=== PATIENT | male | born 1965 | race Caucasian/White ===

== ENCOUNTER 2023-09-07 14:58 | Inpatient (IN) | payer OTHER ==
--- NOTE | 2023-09-07 15:51 | ED ---
General Adult HPI - General Source: patient, RN notes reviewed Mode of arrival: ambulatory Limitations: no limitations <Hever Paulino - Last Filed: 09/07/23 15:50> - General Source: patient, family, RN notes reviewed Mode of arrival: ambulatory Limitations: no limitations <Jaquelin Ceballos - Last Filed: 09/08/23 17:42> - General Stated complaint: Abd pain,bilateral leg pain Time Seen by Provider: 09/07/23 15:50 - History of Present Illness Initial comments: 57-year-old male presents emergency Department with multiple complaints. Patient states that he is weak, has leg pain, leg numbness, abdominal pain, weight loss. Patient was seen activity first and was advised to hospital for further evaluation. (Hever Paulino) Patient is a 57-year-old male presented ER with chief complaint of fatigue. Rafi barber states for the past month he has been extremely fatigued with little appetite. Patient also reports a 30 pound weight loss in the past month. Patient states he was recently admitted for sepsis. Patient states he underwent a spinal tap and received IV antibiotics for the sepsis. Patient was discharged and has been following up with his primary care physician. He saw his PCP today and due to his numerous complaints they sent him to the ER for evaluation. Patient states since the spinal tap she's been having headaches. Patient also describes shortness of breath with exertion. Patient describes an achy sensation in his chest and limbs. Patient also describes generalized abdominal pain. Describes his bowel movements as with bloody and yellow. Patient reports he has had very little appetite. Denies any urinary symptoms. Denies any peripheral edema. Denies any fevers but does endorse recent chills. Patient denies any drug or alcohol use in the past month. Patient isn't every day smoker since he was a teenager. (Jaquelin Ceballos) - Related Data Home Medications Medication Instructions Recorded Confirmed Atorvastatin [Lipitor] 40 mg PO HS 09/07/23 09/07/23 Omeprazole 20 mg PO DAILY 09/07/23 09/07/23 allopurinoL [Zyloprim] 100 mg PO DAILY 09/07/23 09/07/23 amLODIPine [Norvasc] 10 mg PO DAILY 09/07/23 09/07/23 carvediloL [Coreg] 12.5 mg PO BID 09/07/23 09/07/23 lisinopriL [Zestril] 20 mg PO DAILY 09/07/23 09/07/23 Allergies Allergy/AdvReac Type Severity Reaction Status Date / Time No Known Allergies Allergy Verified 09/07/23 21:43 Review of Systems ROS Other: All systems not noted in ROS Statement are negative. <Hever Paulino - Last Filed: 09/07/23 15:50> ROS Other: All systems not noted in ROS Statement are negative. <Jaquelin Ceballos - Last Filed: 09/08/23 17:42> ROS Statement: Those systems with pertinent positive or pertinent negative responses have been documented in the HPI. General Exam <Hever Paulino - Last Filed: 09/07/23 15:50> General appearance: alert, in no apparent distress Head exam: Present: atraumatic, normocephalic, normal inspection ENT exam: Present: normal exam, normal oropharynx, mucous membranes moist, TM's normal bilaterally Neck exam: Present: normal inspection. Absent: tenderness, meningismus, lymphadenopathy Respiratory exam: Present: normal lung sounds bilaterally, rhonchi (Right lung). Absent: respiratory distress, wheezes, rales, stridor Cardiovascular Exam: Present: regular rate, normal rhythm, normal heart sounds. Absent: systolic murmur, diastolic murmur, rubs, gallop, clicks GI/Abdominal exam: Present: soft, tenderness (Generalized), guarding, normal bowel sounds. Absent: distended, rebound, rigid Neurological exam: Present: alert, oriented X3, CN II-XII intact Psychiatric exam: Present: normal affect, normal mood Skin exam: Present: warm, dry, intact, normal color. Absent: rash <Jaquelin Ceballos - Last Filed: 09/08/23 17:42> - General Exam Comments Initial Comments: Visual Physical Exam Vital signs reviewed General: Well-appearing, nontoxic, no acute distress. Head: Normocephalic, atraumatic Eyes: PERRLA, EOMI ENT: Airway patent Chest: Nonlabored breathing Skin: No visual rash, normal skin tone Neuro: Alert and oriented 3 Musculoskeletal: No gross abnormalities (Hever Paulino) Course Vital Signs 09/07/23 09/07/23 15:50 21:49 Temperature 98 F Pulse Rate 89 86 Respiratory 18 18 Rate Blood Pressure 117/69 145/83 O2 Sat by Pulse 100 100 Oximetry Medical Decision Making <Hever Paulino - Last Filed: 09/07/23 15:50> - Lab Data Result diagrams: 09/07/23 15:54 09/08/23 10:19 - EKG Data -: EKG Interpreted by Me - Radiology Data Radiology results: pending, image reviewed <Jaquelin Ceballos - Last Filed: 09/08/23 17:42> - Medical Decision Making I completed the quick note portion of this chart signed Hever Paulino PA-C (Hever Paulino) Was pt. sent in by a medical professional or institution (, PA, GARBAGE TRUCK DRIVER, urgent care, hospital, or intermediate...) When possible be specific @ -No Did you speak to anyone other than the patient for history (EMS, parent, family, police, friend...)? What history was obtained from this source @ -Sister for HPI Did you review nursing and triage notes (agree or disagree)? Why? @ -I reviewed and agree with nursing and triage notes Were old charts reviewed (outside hosp., previous admission, EMS record, old EKG, old radiological studies, urgent care reports/EKG's, intermediate records)? Report findings @ -No old charts were reviewed Differential Diagnosis (chest pain, altered mental status, abdominal pain women, abdominal pain men, vaginal bleeding, weakness, fever, dyspnea, syncope, headache, dizziness, GI bleed, back pain, seizure, CVA, palpatations, mental health, musculoskeletal)? @ -[Differential Weakness:Hypoglycemia, shock, sepsis, hyponatremia, anemia, infection, NH, ETOH, adverse medicine reaction, overdose, stroke, this is not meant to be an all-inclusive list. EKG interpreted by me (3pts min.). @ -As above X-rays interpreted by me (1pt min.). @ -Chest x-ray is negative for acute cardiopulmonary process. CT interpreted by me (1pt min.). @ -CT chest abdomen pelvis was taken official radiology report is pending. U/S interpreted by me (1pt. min.). @ -None done What testing was considered but not performed or refused? (CT, X-rays, U/S, labs)? Why? @ -None What meds were considered but not given or refused? Why? @ -None Did you discuss the management of the patient with other professionals (professionals i.e. DrStuart, PA, GARBAGE TRUCK DRIVER, lab, RT, psych nurse, criminal justice social worker, box blank machine operator, teacher, commanding officer traffic division, rn case mgr)? Give summary @ -Yes, I discussed this case with Dr. Schuster who accepted admission. He also advised to start sodium bicarb. Was smoking cessation discussed for >3mins.? @ -No Was critical care preformed (if so, how long)? @ -No Were there social determinants of health that impacted care today? How? (Homelessness, low income, unemployed, alcoholism, drug addiction, transportation, low edu. Level, literacy, decrease access to med. care, [facility], rehab)? @ -No Was there de-escalation of care discussed even if they declined (Discuss DNR or withdrawal of care, Hospice)? DNR status @ -No What co-morbidities impacted this encounter? (DM, HTN, Smoking, COPD, CAD, Cancer, CVA, ARF, Chemo, Hep., AIDS, mental health diagnosis, sleep apnea, morbid obesity)? @ -HTN and GERD Was patient admitted / discharged? Hospital course, mention meds given and r oute, prescriptions, significant lab abnormalities, going to OR and other pertinent info. @ -Admitted. Patient is a 57-year-old male presented ER with chief complaint of abdominal pain. Upon examination, patient's vital signs are stable. Physical exam was significant for generalized abdominal pain. Patient appeared unwell but was in no acute distress. Labs obtained in the ER were significant for a BUN of 90, creatinine 4.88, magnesium 1.2, carbon dioxide 7, AST 69, ALT 56, ALk phos 136. UA significant for moderate blood. Chest x-ray was negative for acute cardiopulmonary process. CT chest/abdomen/pelvis was taken official radiology read is pending. Patient did receive 1 L of fluids and was started on a bicarbonate drip. Patient did receive 1 mg of IV Dilaudid and 4 mg of Zofran for pain control. I discussed lab and imaging findings with the patient and sister, at bedside. I spoke with Dr. Schuster who accepted admission. Patient will be admitted for further care. Nephrology will be on consult. Patient expressed understanding and agreement with care plan. Undiagnosed new problem with uncertain prognosis? @ -Yes Drug Therapy requiring intensive monitoring for toxicity (Heparin, Nitro, Insulin, Cardizem)? @ -No Were any procedures done? @ -No Diagnosis/symptom? @ -Acute renal failure/hypomagnesemia/transaminitis Acute, or Chronic, or Acute on Chronic? @ -Acute Uncomplicated (without systemic symptoms) or Complicated (systemic symptoms)? @ -Complicated Side effects of treatment? @ -No Exacerbation, Progression, or Severe Exacerbation? @ -No Poses a threat to life or bodily function? How? (Chest pain, USA, NH, pneumonia, PE, COPD, DKA, ARF, appy, cholecystitis, CVA, Diverticulitis, Homicidal, Suicidal, threat to staff... and all critical care pts) @ -Yes, acute renal failure can be life threatening. (Jaquelin Ceballos) - Lab Data Lab Results 09/07/23 09/07/23 09/07/23 Range/Units 15:54 15:54 15:54 WBC 6.5 (3.8-10.6) k/uL RBC 3.83 L (4.30-5.90) m/uL Hgb 11.0 L (13.0-17.5) gm/dL Hct 34.7 L (39.0-53.0) % MCV 90.7 (80.0-100.0) fL MCH 28.7 (25.0-35.0) pg MCHC 31.7 (31.0-37.0) g/dL RDW 16.0 H (11.5-15.5) % Plt Count 197 (150-450) k/uL MPV 10.3 Neutrophils % 63 % Lymphocytes % 19 % Monocytes % 11 % Eosinophils % 2 % Basophils % 1 % Neutrophils # 4.1 (1.3-7.7) k/uL Lymphocytes # 1.2 (1.0-4.8) k/uL Monocytes # 0.7 (0-1.0) k/uL Eosinophils # 0.1 (0-0.7) k/uL Basophils # 0.1 (0-0.2) k/uL Hypochromasia Marked Sodium 142 (137-145) mmol/L Potassium 5.5 H (3.5-5.1) mmol/L Chloride 118 H (98-107) mmol/L Carbon Dioxide 7 L* (22-30) mmol/L Anion Gap 17 mmol/L BUN 90 H (9-20) mg/dL Creatinine 4.88 H (0.66-1.25) mg/dL Est GFR (CKD-EPI)AfAm 14 (>60 ml/min/1.73 sqM) Est GFR (CKD-EPI)NonAf 12 (>60 ml/min/1.73 sqM) Glucose 86 (74-99) mg/dL Plasma Lactic Acid Hernandez (0.7-2.0) mmol/L Calcium 10.2 (8.4-10.2) mg/dL Magnesium 1.2 L (1.6-2.3) mg/dL Total Bilirubin 0.4 (0.2-1.3) mg/dL AST 69 H (17-59) U/L ALT 56 H (4-49) U/L Alkaline Phosphatase 136 H (38-126) U/L Troponin I (0.000-0.034) ng/mL Total Protein 7.2 (6.3-8.2) g/dL Albumin 3.9 (3.5-5.0) g/dL Amylase 98 (30-110) U/L Lipase 344 H (23-300) U/L Urine Color Light Yellow Urine Appearance Clear (Clear) Urine pH 5.5 (5.0-8.0) Ur Specific [place] 1.015 (1.001-1.035) Urine Protein 2+ H (Negative) Urine Glucose (UA) Negative (Negative) Urine Ketones Negative (Negative) Urine Blood Moderate H (Negative) Urine Nitrite Negative (Negative) Urine Bilirubin Negative (Negative) Urine Urobilinogen <2.0 (<2.0) mg/dL Ur Leukocyte Esterase Negative (Negative) Urine RBC 1 (0-5) /hpf Urine WBC 1 (0-5) /hpf Hyaline Casts 1 (0-2) /lpf Urine Mucus Rare H (None) /hpf 09/07/23 09/07/23 Range/Units 15:54 15:54 WBC (3.8-10.6) k/uL RBC (4.30-5.90) m/uL Hgb (13.0-17.5) gm/dL Hct (39.0-53.0) % MCV (80.0-100.0) fL MCH (25.0-35.0) pg MCHC (31.0-37.0) g/dL RDW (11.5-15.5) % Plt Count (150-450) k/uL MPV Neutrophils % % Lymphocytes % % Monocytes % % Eosinophils % % Basophils % % Neutrophils # (1.3-7.7) k/uL Lymphocytes # (1.0-4.8) k/uL Monocytes # (0-1.0) k/uL Eosinophils # (0-0.7) k/uL Basophils # (0-0.2) k/uL Hypochromasia Sodium (137-145) mmol/L Potassium (3.5-5.1) mmol/L Chloride (98-107) mmol/L Carbon Dioxide (22-30) mmol/L Anion Gap mmol/L BUN (9-20) mg/dL Creatinine (0.66-1.25) mg/dL Est GFR (CKD-EPI)AfAm (>60 ml/min/1.73 sqM) Est GFR (CKD-EPI)NonAf (>60 ml/min/1.73 sqM) Glucose (74-99) mg/dL Plasma Lactic Acid Hernandez 0.6 L (0.7-2.0) mmol/L Calcium (8.4-10.2) mg/dL Magnesium (1.6-2.3) mg/dL Total Bilirubin (0.2-1.3) mg/dL AST (17-59) U/L ALT (4-49) U/L Alkaline Phosphatase (38-126) U/L Troponin I 0.029 (0.000-0.034) ng/mL Total Protein (6.3-8.2) g/dL Albumin (3.5-5.0) g/dL Amylase (30-110) U/L Lipase (23-300) U/L Urine Color Urine Appearance (Clear) Urine pH (5.0-8.0) Ur Specific [place] (1.001-1.035) Urine Protein (Negative) Urine Glucose (UA) (Negative) Urine Ketones (Negative) Urine Blood (Negative) Urine Nitrite (Negative) Urine Bilirubin (Negative) Urine Urobilinogen (<2.0) mg/dL Ur Leukocyte Esterase (Negative) Urine RBC (0-5) /hpf Urine WBC (0-5) /hpf Hyaline Casts (0-2) /lpf Urine Mucus (None) /hpf - EKG Data EKG Comments: EKG taken at 21:15 shows normal sinus rhythm with left ventricular hypertrophy. No acute ST segment or T-wave abnormalities. Ventricular rate 76, TX interval 159, QRS duration 113, QT/QTC 361/392. (Jaquelin Ceballos) Disposition <Hever Paulino - Last Filed: 09/07/23 15:50> Time of Disposition: 22:14 <Jaquelin Ceballos - Last Filed: 09/08/23 17:42> Clinical Impression: Acute renal failure, Hypomagnesemia, Transaminitis Disposition: ADMITTED IP TO THIS HOSP Condition: Serious
[2023-09-07 16:56] LABS: Basophils # (A) 0.1 k/uL (0-0.2); Basophils % (A) 1 %; Eosinophils # (A) 0.1 k/uL (0-0.7); Eosinophils % (A) 2 %; HCT 34.7 % (39.0-53.0); Hypochromasia Marked; Lymphocytes # (A) 1.2 k/uL (1.0-4.8); Lymphocytes % (A) 19 %; MCH 28.7 pg (25.0-35.0); MCHC 31.7 g/dL (31.0-37.0); MCV 90.7 fL (80.0-100.0); Mean Platelet Volume 10.3; Monocytes # (A) 0.7 k/uL (0-1.0); Monocytes % (A) 11 %; Neutrophils # (A) 4.1 k/uL (1.3-7.7); Neutrophils % (A) 63 %; Platelet Count 197 k/uL (150-450); RBC 3.83 m/uL (4.30-5.90); WBC 6.5 k/uL (3.8-10.6)
[2023-09-07 17:06] LABS: ALT 56 U/L (4-49); AST 69 U/L (17-59); African American GFR (CKD) 14 (>60 ml/min/1.73 sqM); Albumin 3.9 g/dL (3.5-5.0); Alkaline Phosphatase 136 U/L (38-126); Amylase 98 U/L (30-110); Anion Gap 17 mmol/L; Blood Urea Nitrogen 90 mg/dL (9-20); Calcium 10.2 mg/dL (8.4-10.2); Chloride 118 mmol/L (98-107); Glucose 86 mg/dL (74-99); Lipase 344 U/L (23-300); Magnesium 1.2 mg/dL (1.6-2.3); Non-African American GFR(CKD) 12 (>60 ml/min/1.73 sqM); Potassium 5.5 mmol/L (3.5-5.1); Sodium 142 mmol/L (137-145); Total Bilirubin 0.4 mg/dL (0.2-1.3); Total Protein 7.2 g/dL (6.3-8.2)
[2023-09-07 17:07] LABS: Appearance,Urine Clear (Clear); Bilirubin,Urine Negative (Negative); Blood,Urine Moderate (Negative); Color,Urine Light Yellow; Glucose,Urine (UA) Negative (Negative); Hyaline Casts,Urine 1 /lpf (0-2); Ketones,Urine Negative (Negative); Leukocyte Esterase,Urine Negative (Negative); Mucus,Urine Rare /hpf; Nitrite,Urine Negative (Negative); PH, Urine 5.5 (5.0-8.0); Protein,Urine 2+ (Negative); RBC,Urine 1 /hpf (0-5); Specific Gravity,Urine 1.015 (1.001-1.035); Urobilinogen,Urine <2.0 mg/dL (<2.0); WBC,Urine 1 /hpf (0-5)
--- NOTE | 2023-09-07 17:14 | XR ---
EXAMINATION TYPE: XR chest 2V DATE OF EXAM: 09/07/2023 4:44 PM CLINICAL INDICATION:Male, 57 years old with history of weakness; PHH COMPARISON: None TECHNIQUE: XR chest 2V. Frontal PA and lateral views of the chest. FINDINGS: Lines/Tubes: None. Heart/mediastinum: Cardiomediastinal silhouette is well defined. Heart size is normal. Mediastinum appears normal. No evidence of hilar enlargement. Pulmonary vascularity: Not increased, Lungs/Pleura: There is no evidence of pleural effusion, focal consolidation, or pneumothorax. Vague increased density over the lower lungs bilaterally on the frontal view is not reproduced on lat eral, judged likely due to soft tissue overlap. Musculoskeletal: No acute osseous abnormality demonstrated in the limits of the exam. Mild degenerat shirin changes of the spine and shoulders with possible DISH of the spine. Other findings: None. IMPRESSION: No acute cardiopulmonary abnormality.
[2023-09-07 17:18] LABS: Carbon Dioxide 7 mmol/L (22-30)
[2023-09-07] MEDS ORDERED: SODIUM CHLORIDE 0.9% 1,000 ML IV STA (21:06)
[2023-09-07] MEDS ORDERED: NALOXONE 0.4 MG/ML 1 ML VIAL IV PRN (21:29)
[2023-09-07] MEDS: SODIUM CHLORIDE 0.9% 1,000 ML IV SCH (21:50)
[2023-09-07] MEDS ORDERED: ONDANSETRON 4 MG/2 ML VIAL IVP STA (21:58)
[2023-09-07] MEDS ORDERED: HYDROmorphone 1 MG/ML 1 ML SYRINGE IVP STA (21:58)
[2023-09-07] MEDS ORDERED: DEXTROSE 5% IN WATER 1,000 ML with SODIUM BICARB (1 MEQ/ML) 150 ML IV SCH (22:30)
[2023-09-08] MEDS: MAGNESIUM SULFATE-D5W PMX 1 GM in DEXTROSE/WATER 1 100ML.BAG IVPB SCH ×2 (00:13→01:22)
--- NOTE | 2023-09-08 00:15 | CT ---
EXAMINATION TYPE: CT ChestAbdPelvis wo con CT DLP: 491.5 mGycm, Automated exposure control for dose reduction was used. DATE OF EXAM: 09/07/2023 8:36 PM COMPARISON: Same day chest x-ray CLINICAL INDICATION:Male, 57 years old with history of fatigue; PHH, lower abdominal pain- poor lab v john (believed to be in sepsis) -- GFR 12 TECHNIQUE: Multiple axial images of the chest, abdomen, and pelvis were obtained. Two-dimensional cor onal and sagittal reconstructions were obtained. Contrast used: mL of , Oral contrast used: without Oral Contrast FINDINGS: Exam limited without IV contrast. CHEST: LUNGS/ PLEURA: Mild upper lobe emphysematous changes with mild biapical reticular scarring. No consol idation, mass, pleural effusion, pneumothorax. AIRWAY: Patent and unremarkable. HEART: Size within normal limits. Mild/moderate coronary arterial calcifications. Trace pericardial f luid. MEDIASTINUM: No gross evidence of adenopathy. VASCULATURE: Moderate aortic atherosclerotic calcification and ectasia of the ascending aorta up to 3.8 cm. Partially calcified aortic valve. Calcifications along the aortic arch without significant st enosis of the branch vessels. The descending thoracic aorta is 2.7 cm. MUSCULOSKELETAL: Mild to moderate diffuse degenerative changes. Degenerative change of the SI joints with partial osseous bridging. No acute bony abnormality or lytic/blastic lesion. 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 SOFT TISSUES/LYMPH NODES: Unremarkable. LOWER NECK: No significant findings. ABDOMEN: ABDOMEN LIVER: There is circumscribed 10.5 mm hypodense lesion in the right lobe towards the dome. Otherwise unremarkable. GALLBLADDER AND BILE DUCTS: Slightly hyperdense gallbladder contents could be due to sludge or gretchen ous excretion. No focal calcified gallstones are seen. No inflammatory changes or biliary ductal dila tation. PANCREAS: Unremarkable. SPLEEN: Low-attenuation round 2.7 cm lesion in the posterior spleen with some peripheral calcificatio ns, possibly cyst or hemangioma. ADRENAL GLANDS: Unremarkable. KIDNEYS AND URETERS: There are severe vascular calcifications in the renal leopoldo. Punctate calculus is seen in the upper pole of the left kidney. There are several small round at least partially exophyti c nodular densities from the right kidney of increased and decreased attenuation. Left kidney shows s everal relatively hypodense and primarily exophytic lesions as well, largest 4 cm emanating from the lower pole. No evidence of ureteral calculi or hydronephrosis. PELVIS BLADDER: Unremarkable REPRODUCTIVE: Mildly enlarged prostate measures 4.3 cm transverse. ABDOMEN & PELVIS STOMACH AND BOWEL: Stomach and small bowel do not appear distended, there is no evidence of obstructi on. Appendix appears within normal limits. Mild/moderate stool throughout the colon with a few scatte red diverticula, no definite focal inflammation to suggest diverticulitis. Many segments of colon are nondistended and not well evaluated. There is a thickened appearance of the colonic wall suggested e specially from the distal descending through the sigmoid colon, with some apparent luminal narrowing, of uncertain etiology. Rectal wall thickening may also be present. PERITONEUM: No evidence of pneumoperitoneum or free fluid. Mild generalized stranding of the mesenteric fat. No focal fluid collection to suggest abscess. VASCULATURE: Moderate atherosclerotic calcifications are present throughout the abdominal aorta and i ts branches. Bilobed ectasia of the infrarenal aorta measuring 2.5 and 2.6 cm. Beyond the bifurcation there is moderate diffuse calcification of the iliac arterial trees with multifocal areas of stenosi s which appear under 50%. MUSCULOSKELETAL: Mild to moderate diffuse degenerative changes. Degenerative change of the SI joints with partial osseous bridging. No acute bony abnormality or lytic/blastic lesion. 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 LYMPH NODES: No gross evidence for lymphadenopathy. SOFT TISSUE/ABDOMINAL WALL: Mild broad-based laxity at the ventral abdominal wall at the midline with superimposed tiny fat-containing umbilical hernia. IMPRESSION: 1. No clearly acute abnormality in the chest abdomen or pelvis, in the limitations of unenhanced exa m. 2. Abnormal appearance of the colon, with wall thickening most prominent in the sigmoid region. This could reflect chronic changes such as related to the diverticular disease, however infectious or inf lammatory cause or neoplasm are also considered. Colonoscopy V may be of benefit if clinically warran aayush. 3. Moderate aortic atherosclerotic calcification and ectasia of the ascending aorta up to 3.8 cm. Mi ld bilobed ectasia of the infrarenal abdominal aorta. 4. Bilateral renal lesions are not fully characterized but the appearance is most suggestive of simp le and hyperdense/hemorrhagic cysts. Further characterization could begin with renal ultrasound as wa rranted. 5. Small hepatic hypodensity, not fully characterized but in the absence of a cancer history is stat istically likely benign. 6. Other chronic and likely incidental findings, as above.
[2023-09-08] MEDS ORDERED: allopurinoL 100 MG TAB PO SCH (10:15)
[2023-09-08] MEDS: PANTOPRAZOLE 40 MG TABLET PO SCH (10:35)
[2023-09-08 10:53] LABS: African American GFR (CKD) 19 (>60 ml/min/1.73 sqM); Anion Gap 16 mmol/L; Blood Urea Nitrogen 81 mg/dL (9-20); Calcium 9.7 mg/dL (8.4-10.2); Carbon Dioxide 10 mmol/L (22-30); Chloride 117 mmol/L (98-107); Glucose 169 mg/dL (74-99); Non-African American GFR(CKD) 16 (>60 ml/min/1.73 sqM); Potassium 4.3 mmol/L (3.5-5.1); Sodium 143 mmol/L (137-145)
[2023-09-08] MEDS ORDERED: LACTULOSE 20 GM/30 ML CUP PO PRN (11:50)
[2023-09-08] MEDS ORDERED: ALPRAZolam 0.25 MG TAB PO PRN (11:50)
[2023-09-08] MEDS ORDERED: CALCIUM CARBONATE 500 MG CHEWABLE PO PRN (11:50)
[2023-09-08] MEDS ORDERED: TEMAZEPAM 15 MG CAP PO PRN (11:50)
[2023-09-08] MEDS: BUDESONIDE 1 MG/2 ML NEBU INHALATION SCH ×2 (12:09→18:41)
[2023-09-08] MEDS: IPRATROPIUM-ALBUTEROL 3 ML NEB INHALATION SCH ×2 (12:16→18:41)
[2023-09-08] MEDS ORDERED: ENOXAPARIN 40 MG/0.4 ML SYRINGE SQ SCH (12:30)
[2023-09-08] MEDS: SODIUM CHLORIDE 0.9% 1,000 ML IV SCH (13:40)
[2023-09-08] MEDS: NICOTINE 21MG/24HR PATCH TRANSDERM SCH (13:40)
--- NOTE | 2023-09-08 13:43 | P.NPCON ---
History of Present Illness - Reason for Consult acute renal failure - History of Present Illness Patient is a 57-year-old male who is admitted to the hospital with complaints of increased weakness and fatigue. He states he has not been able to eat much for about 2 weeks. Patient also is complaining of diarrhea which has been going on for about 2-1/2-3 weeks now. Patient admitted to increased weight loss. No previous history of kidney diseases. Serum creatinine was 4.8 on admission and decreased to 3.8 now. No previous labs available for comparison. Blood pressure has been on the lower side. Maintained on MARSHAL inhibitor as prior to admission. CO2 was 7 and improved to 10 this morning. Review of Systems As per HPI. Past Medical History Additional Past Medical History / Comment(s): Gout, History of Any Multi-Drug Resistant Organisms: None Reported Past Surgical History: No Surgical Hx Reported Past Anesthesia/Blood Transfusion Reactions: No Reported Reaction Past Psychological History: No Psychological Hx Reported Smoking Status: Current every day smoker Past Alcohol Use History: Abuse, Daily Past Drug Use History: Marijuana Medications and Allergies Home Medications Medication Instructions Recorded Confirmed Type Atorvastatin [Lipitor] 40 mg PO HS 09/07/23 09/07/23 History Omeprazole 20 mg PO DAILY 09/07/23 09/07/23 History allopurinoL [Zyloprim] 100 mg PO DAILY 09/07/23 09/07/23 History amLODIPine [Norvasc] 10 mg PO DAILY 09/07/23 09/07/23 History carvediloL [Coreg] 12.5 mg PO BID 09/07/23 09/07/23 History lisinopriL [Zestril] 20 mg PO DAILY 09/07/23 09/07/23 History Allergies Allergy/AdvReac Type Severity Reaction Status Date / Time No Known Allergies Allergy Verified 09/07/23 21:43 Physical Exam Vitals: Vital Signs Temp Pulse Pulse Resp BP BP Pulse Ox 09/08/23 07:38 97.7 F 94 19 116/79 98 09/08/23 00:39 98.4 F 92 17 111/67 100 09/07/23 21:49 86 18 145/83 100 09/07/23 15:50 98 F 89 18 117/69 100 Intake and Output 09/07/23 09/08/23 09/08/23 22:59 06:59 14:59 Intake Total 1000 Balance 1000 Intake: IV 1000 Invasive Line 1 1000 Other: Voiding Method Toilet # Voids 1 Weight 64.41 kg 64.41 kg Patient is awake, comfortable, no acute distress Examination of the heart S1 and S2 Examination of the lungs bilateral breath sounds are heard Abdomen is soft nontender Examination of lower extremity shows no edema [employer] exam grossly intact Results - Lab Results Most recent lab results Calcium 9.7 mg/dL (8.4-10.2) 09/08/23 10:19 Magnesium 1.2 mg/dL (1.6-2.3) L 09/07/23 15:54 09/07/23 15:54 09/08/23 10:19 Assessment and Plan Assessment: 1. Acute kidney injury, ATN currently nonoliguric and improving with IV hydration. UA shows 2+ protein and moderate blood. 2. Severe metabolic acidosis, anion gap associated with acute kidney injury as well as diarrhea 3. Hyperkalemia associated with acute kidney injury and metabolic acidosis. 4. Weight loss with CT findings suggesting changes in the colon, rule out underlying malignancy 5. History of hypertension with blood pressure currently on the lower side Plan: Add IV bicarb DC Coreg if blood pressure remains low Repeat labs in a.m. Continue to hold off on MARSHAL inhibitor's Avoid nephrotoxic agents Further GI workup as per primary service Thank you for the consultation. We will continue to follow the patient with you during his hospitalization.
[2023-09-08] MEDS: DEXTROSE 5% IN WATER 1,000 ML with SODIUM BICARB (1 MEQ/ML) 150 ML IV SCH (17:42)
[2023-09-08] MEDS: ACETAMINOPHEN TAB 325 MG TAB PO PRN (17:43)
[2023-09-08] MEDS: ATORVASTATIN 40 MG TAB PO SCH (19:57)
--- NOTE | 2023-09-08 21:26 | P.HPIM ---
History of Present Illness H&P Date: 09/08/23 Chief Complaint: Weak and tired This is a pleasant 57-year-old patient who follows with Dr. Uziel Caro. For about 3 months patient's progressively getting worse. Hold bodies and becoming stiff did get some antibiotic as an outpatient. Feels a little bit better. Went to see his family doctor who did his blood work and was sent to the hospital. In the last 4 weeks patient lost about 38 pounds. Denies any fever. For last 1 week patient also had diarrhea about 7-8 times in 24 hour period. The diarrhea is better in the hospital now. Has been losing weight. Poor appetite. Tired rundown. Patient been drinking about half a pint of alcohol. Was sometime. Patient is found in severe renal failure and admitted. Review of systems: GEN.: Poor appetite, weight loss, tired EYES: None HEENT: None NECK: None RESPIRATORY: None CARDIOVASCULAR: None GASTROINTESTINAL: Diarrhea was actually better GENITOURINARY: None MUSCULOSKELETAL: Generalized muscle weakness] LYMPHATICS: None HEMATOLOGICAL: None PSYCHIATRY: None NEUROLOGICAL: None Social history: Drinking half of pint of alcohol daily. This is his girlfriend Pastora. Smoked a pack and a half for about 40 years. Stopped 3-4 weeks ago. Used to do construction work Physical examination: VITAL SIGNS: 98, 89, 18, 117/69, 100% room air GENERAL: BMI 21.6, reclining but awake tired. EYES: Pupils equal. Conjunctiva normal. HEENT: External appearance of nose and ears normal, oral cavity grossly normal. NECK: JVD not raised; masses not palpable. HEART: First and second heart sounds are normal; no edema. LUNGS: Respiratory rate normal; clear to auscultation. ABDOMEN: Soft, nontender, liver spleen not palpable, no masses palpable. PSYCH: Alert and oriented x3; mood and affect normal. MUSCULOSKELETAL:No Clubbing/cyanosis;muscles-grossly intact It also some muscle mass NEUROLOGICAL: Cranial nerves grossly intact; no facial asymmetry, power and sensation grossly intact. LYMPHATICS: No lymph nodes palpable in the axilla and neck INVESTIGATIONS, reviewed in the clinical context: 09/08/2023: Potassium 4.3 bicarb 10 BUN 81 8 and 3.8 09/07/2023: White count 6.5 hemoglobin 11 platelets 197 potassium 5.5 bicarbonate 7 BUN 90 creatinine 4.88 EKG tracing personally reviewed by me-normal sinus rhythm. Some ST-T wave changes. Chest x-ray film personally reviewed by me-emphysema Computed tomography scan chest abdomen pelvis: Nonspecific findings. Assessment and plan: -Acute kidney injury likely combination of prerenal from decreased oral intake and ATN. Stop Zestril. And allopurinol. IV fluids -Severe metabolic acidosis due to severe renal failure IV bicarbonate drip -COPD in a current smoker DuoNeb -Chronic nicotine dependence, cigarette smoker Nicotine patch -GERD Protonix -Essential hypertension, currently blood pressure in the lower side. Stop amlodipine. Stop Zestril. Cutback Coreg to 3.125 mg twice a day. Care was discussed with the patient. Nephrology consulted. Patient will probably need a repeat computed tomography scan chest abdomen pelvis with cont rast and renal functions better. Past Medical History Additional Past Medical History / Comment(s): Gout, History of Any Multi-Drug Resistant Organisms: None Reported Past Surgical History: No Surgical Hx Reported Past Anesthesia/Blood Transfusion Reactions: No Reported Reaction Past Psychological History: No Psychological Hx Reported Smoking Status: Current every day smoker Past Alcohol Use History: Abuse, Daily Past Drug Use History: Marijuana Medications and Allergies Home Medications Medication Instructions Recorded Confirmed Type Atorvastatin [Lipitor] 40 mg PO HS 09/07/23 09/07/23 History Omeprazole 20 mg PO DAILY 09/07/23 09/07/23 History allopurinoL [Zyloprim] 100 mg PO DAILY 09/07/23 09/07/23 History amLODIPine [Norvasc] 10 mg PO DAILY 09/07/23 09/07/23 History carvediloL [Coreg] 12.5 mg PO BID 09/07/23 09/07/23 History lisinopriL [Zestril] 20 mg PO DAILY 09/07/23 09/07/23 History Allergies Allergy/AdvReac Type Severity Reaction Status Date / Time No Known Allergies Allergy Verified 09/07/23 21:43 Physical Exam Vitals: Vital Signs Temp Pulse Pulse Resp BP BP Pulse Ox 09/08/23 07:38 97.7 F 94 19 116/79 98 09/08/23 00:39 98.4 F 92 17 111/67 100 09/07/23 21:49 86 18 145/83 100 09/07/23 15:50 98 F 89 18 117/69 100 Intake and Output 09/07/23 09/08/23 09/08/23 22:59 06:59 14:59 Intake Total 1000 Balance 1000 Intake: IV 1000 Invasive Line 1 1000 Other: Voiding Method Toilet # Voids 1 Weight 64.41 kg 64.41 kg Results CBC & Chem 7: 09/07/23 15:54 09/08/23 10:19 Labs: Abnormal Lab Results - Last 24 Hours (Table) 09/07/23 09/07/23 09/07/23 Range/Units 15:54 15:54 15:54 RBC 3.83 L (4.30-5.90) m/uL Hgb 11.0 L (13.0-17.5) gm/dL Hct 34.7 L (39.0-53.0) % RDW 16.0 H (11.5-15.5) % Potassium 5.5 H (3.5-5.1) mmol/L Chloride 118 H (98-107) mmol/L Carbon Dioxide 7 L* (22-30) mmol/L BUN 90 H (9-20) mg/dL Creatinine 4.88 H (0.66-1.25) mg/dL Plasma Lactic Acid Hernandez (0.7-2.0) mmol/L Magnesium 1.2 L (1.6-2.3) mg/dL AST 69 H (17-59) U/L ALT 56 H (4-49) U/L Alkaline Phosphatase 136 H (38-126) U/L Lipase 344 H (23-300) U/L Urine Protein 2+ H (Negative) Urine Blood Moderate H (Negative) Urine Mucus Rare H (None) /hpf 09/07/23 Range/Units 15:54 RBC (4.30-5.90) m/uL Hgb (13.0-17.5) gm/dL Hct (39.0-53.0) % RDW (11.5-15.5) % Potassium (3.5-5.1) mmol/L Chloride (98-107) mmol/L Carbon Dioxide (22-30) mmol/L BUN (9-20) mg/dL Creatinine (0.66-1.25) mg/dL Plasma Lactic Acid Hernandez 0.6 L (0.7-2.0) mmol/L Magnesium (1.6-2.3) mg/dL AST (17-59) U/L ALT (4-49) U/L Alkaline Phosphatase (38-126) U/L Lipase (23-300) U/L Urine Protein (Negative) Urine Blood (Negative) Urine Mucus (None) /hpf
[2023-09-08] MEDS: Acetaminophen-Codeine 300-30mg TAB PO PRN (22:00)
[2023-09-09] MEDS: DEXTROSE 5% IN WATER 1,000 ML with SODIUM BICARB (1 MEQ/ML) 150 ML IV SCH ×3 (06:18→22:41)
[2023-09-09] MEDS: NICOTINE 21MG/24HR PATCH TRANSDERM SCH (08:12)
[2023-09-09] MEDS: ENOXAPARIN 30 MG/0.3 ML SYRINGE SQ SCH (08:12)
[2023-09-09] MEDS: PANTOPRAZOLE 40 MG TABLET PO SCH (08:12)
[2023-09-09] MEDS: Acetaminophen-Codeine 300-30mg TAB PO PRN ×2 (08:16→20:28)
[2023-09-09] MEDS: IPRATROPIUM-ALBUTEROL 3 ML NEB INHALATION SCH ×3 (09:34→21:20)
[2023-09-09] MEDS: BUDESONIDE 1 MG/2 ML NEBU INHALATION SCH ×2 (09:34→21:20)
[2023-09-09 13:15] LABS: African American GFR (CKD) 24 (>60 ml/min/1.73 sqM); Anion Gap 12 mmol/L; Blood Urea Nitrogen 70 mg/dL (9-20); Calcium 9.2 mg/dL (8.4-10.2); Carbon Dioxide 19 mmol/L (22-30); Chloride 112 mmol/L (98-107); Glucose 110 mg/dL (74-99); Non-African American GFR(CKD) 20 (>60 ml/min/1.73 sqM); Potassium 4.2 mmol/L (3.5-5.1); Sodium 143 mmol/L (137-145)
--- NOTE | 2023-09-09 14:09 | P.PN ---
Subjective Patient is seen in follow-up for acute kidney injury. Creatinine was 4.88 on admission and is down to 3.16 today. Diarrhea significantly improved. Oral intake fair. No vomiting. Has been voiding. Vital signs are stable. General: No acute distress. HEENT: Head exam is unremarkable. LUNGS: No audible rhonchi or wheezes. HEART: Rate and Rhythm are regular. ABDOMEN: Nontender. EXTREMITITES: No edema. Objective - Vital Signs Vital signs: Vital Signs Temp 98.3 F 09/09/23 07:11 Pulse 88 09/09/23 09:47 Resp 19 09/09/23 07:11 BP 127/79 09/09/23 07:11 Pulse Ox 97 09/09/23 07:11 FiO2 Intake & Output 09/08/23 09/09/23 09/09/23 18:59 06:59 18:59 Other: # Voids 1 - Labs CBC & Chem 7: 09/07/23 15:54 09/09/23 12:43 Labs: Abnormal Lab Results - Last 24 Hours (Table) 09/09/23 Range/Units 12:43 Chloride 112 H (98-107) mmol/L Carbon Dioxide 19 L (22-30) mmol/L BUN 70 H (9-20) mg/dL Creatinine 3.16 H (0.66-1.25) mg/dL Glucose 110 H (74-99) mg/dL Assessment and Plan Plan: Assessment: 1. Acute kidney injury secondary to ATN secondary to hypovolemia from diarrhea and further worsened with the use of MARSHAL inhibitor. Creatinine 4.88 on admission and is 3.16 today. Unknown baseline renal function. No hydronephrosis noted on kidney ultrasound. Severe vascular calcifications noted in the kidneys. Bilateral kidney cysts also noted. 2. Metabolic acidosis secondary to acute kidney injury and GI losses. Improving with bicarb drip. 3. Hyperkalemia secondary to acute kidney injury, acidosis and MARSHAL inhibitor. Improved. 4. Unintentional weight loss. CAT scan shows wall thickening of the colon. Plan: Maintain bicarb drip for another day. Continue to hold MARSHAL inhibitor. Check renal ultrasound. Avoid nephrotoxins. Repeat labs in the morning.
[2023-09-09] MEDS: ACETAMINOPHEN TAB 325 MG TAB PO PRN (15:30)
--- NOTE | 2023-09-09 16:51 | US ---
EXAMINATION TYPE: US kidneys/renal and bladder DATE OF EXAM: 09/09/2023 COMPARISON: CT 09/07/2023. CLINICAL INDICATION: Male, 57 years old with history of kalani; Nausea and cloudy urine EXAM MEASUREMENTS: Right Kidney: 12.7 x 6.1 x 6.0 cm Left Kidney: 12.6 x 6.2 x 5.5 cm Post Void Residual Volume: NA mL Right Kidney: Multiple subcentimeter cysts; hyperechoic foci likely representing atherosclerosis on C T 09/07/2023. Left Kidney: Multiple cysts, largest = 4.4 x 3.4 x 3.7 cm Bladder: wnl Bilateral Jets seen: No Normal Post Void Residual: NA There is no evidence for hydronephrosis at this point in time. No nephrolithiasis is seen. No zoe s are identified. The urinary bladder is anechoic. IMPRESSION: 1. No evidence for obstructive uropathy. Cortical medullary differentiation maintained. 2. Left renal cyst. 3. Right renal sinus atherosclerosis.
--- NOTE | 2023-09-09 19:07 | P.PN ---
Progress Note - Text Progress Note Date: 09/09/23 Chief Complaint: Weak and tired This is a pleasant 57-year-old patient who follows with Dr. Uziel Caro. For about 3 months patient's progressively getting worse. Hold bodies and becoming stiff did get some antibiotic as an outpatient. Feels a little bit better. Went to see his family doctor who did his blood work and was sent to the hospital. In the last 4 weeks patient lost about 38 pounds. Denies any fever. For last 1 week patient also had diarrhea about 7-8 times in 24 hour period. The diarrhea is better in the hospital now. Has been losing weight. Poor appetite. Tired rundown. Patient been drinking about half a pint of alcohol. Was sometime. Patient is found in severe renal failure and admitted. 09/09/2023: Slow improvement in renal function. Remains on a bicarbonate drip. Some improvement in oral intake. Some improvement in a urine output. Active Medications Acetaminophen (Acetaminophen Tab 325 Mg Tab) 650 mg PO Q6HR PRN PRN Reason: Mild Pain or Fever > 100.5 Last Admin: 09/09/23 15:30 Dose: 650 mg Acetaminophen/Codeine Phosphate (Acetaminophen-Codeine 300-30mg Tab) 1 each PO Q6HR PRN PRN Reason: Pain Last Admin: 09/09/23 08:16 Dose: 1 each Albuterol/Ipratropium (Ipratropium-Albuterol 3 Ml Neb) 3 ml INHALATION RT-TID [facility] Last Admin: 09/09/23 13:06 Dose: Not Given Alprazolam (Alprazolam 0.25 Mg Tab) 0.25 mg PO Q6HR PRN PRN Reason: Anxiety Atorvastatin Calcium (Atorvastatin 40 Mg Tab) 40 mg PO HS [facility] Last Admin: 09/08/23 19:57 Dose: 40 mg Budesonide (Budesonide 1 Mg/2 Ml Nebu) 1 mg INHALATION RT-BID [facility] Last Admin: 09/09/23 09:34 Dose: 1 mg Calcium Carbonate/Glycine (Calcium Carbonate 500 Mg Chewable) 1,000 mg PO Q4HR PRN PRN Reason: Dyspepsia Carvedilol (Carvedilol 1.563 Mg Tab) 1.563 mg PO BID-W/MEALS [facility] Last Admin: 09/09/23 16:21 Dose: 1.563 mg Enoxaparin Sodium (Enoxaparin 30 Mg/0.3 Ml Syringe) 30 mg SQ DAILY [facility] Last Admin: 09/09/23 08:12 Dose: 30 mg Sodium Bicarbonate 150 ml/ (Dextrose/Water) 1,150 mls @ 125 mls/hr IV .Q9H12M [facility] Last Admin: 09/09/23 09:28 Dose: 75 mls/hr Lactulose (Lactulose 20 Gm/30 Ml Cup) 20 gm PO DAILY PRN PRN Reason: Constipation Naloxone HCl (Naloxone 0.4 Mg/Ml 1 Ml Vial) 0.2 mg IV Q2M PRN PRN Reason: Opioid Reversal Nicotine (Nicotine 21mg/24hr Patch) 1 patch TRANSDERM DAILY [facility] Last Admin: 09/09/23 08:12 Dose: 1 patch Pantoprazole Sodium (Pantoprazole 40 Mg Tablet) 40 mg PO DAILY [facility] Last Admin: 09/09/23 08:12 Dose: 40 mg Temazepam (Temazepam 15 Mg Cap) 15 mg PO HS PRN PRN Reason: Insomnia Social history: Drinking half of pint of alcohol daily. This is his girlfriend Pastora. Smoked a pack and a half for about 40 years. Stopped 3-4 weeks ago. Used to do construction work Physical examination: VITAL SIGNS: 98.4, 100, 19, 113 was 35, 99% room air GENERAL: At the edge of the bed. EYES: Pupils equal. Conjunctiva normal. HEENT: External appearance of nose and ears normal, oral cavity grossly normal. NECK: JVD not raised; masses not palpable. HEART: First and second heart sounds are normal; no edema. LUNGS: Respiratory rate normal; clear to auscultation. ABDOMEN: Soft, nontender, liver spleen not palpable, no masses palpable. PSYCH: Alert and oriented x3; mood and affect normal. MUSCULOSKELETAL:No Clubbing/cyanosis;muscles-grossly intact Loss of muscle mass INVESTIGATIONS, reviewed in the clinical context: 04/09/2023: Potassium 4.2 bicarb 19 creatinine 3.16 09/08/2023: Potassium 4.3 bicarb 10 BUN 81 8 and 3.8 09/07/2023: White count 6.5 hemoglobin 11 platelets 197 potassium 5.5 bicarbonate 7 BUN 90 creatinine 4.88 EKG tracing personally reviewed by me-normal sinus rhythm. Some ST-T wave changes. Chest x-ray film personally reviewed by me-emphysema Computed tomography scan chest abdomen pelvis: Nonspecific findings. Assessment and plan: -Acute kidney injury likely combination of prerenal from decreased oral intake and ATN.: Slow to respond Stop Zestril. And allopurinol. IV fluids -Medical asthenia from severe renal failure: Slow improvement -Severe metabolic acidosis due to severe renal failure IV bicarbonate drip -COPD in a current smoker DuoNeb -Chronic nicotine dependence, cigarette smoker Nicotine patch -GERD Protonix -Essential hypertension, currently blood pressure in the lower side. Stop amlodipine. Stop Zestril. Coreg to 1.563 mg twice a day. Carbonate drip. Other medications to continue. Increase activity. Follow with nephrology. Past Medical History Additional Past Medical History / Comment(s): Gout, History of Any Multi-Drug Resistant Organisms: None Reported Past Surgical History: No Surgical Hx Reported Past Anesthesia/Blood Transfusion Reactions: No Reported Reaction Past Psychological History: No Psychological Hx Reported Smoking Status: Current every day smoker Past Alcohol Use History: Abuse, Daily Past Drug Use History: Marijuana
[2023-09-09] MEDS: ATORVASTATIN 40 MG TAB PO SCH (20:28)
[2023-09-10] MEDS: Acetaminophen-Codeine 300-30mg TAB PO PRN (05:45)
[2023-09-10] MEDS: NICOTINE 21MG/24HR PATCH TRANSDERM SCH (08:02)
[2023-09-10] MEDS: PANTOPRAZOLE 40 MG TABLET PO SCH (08:02)
[2023-09-10] MEDS: ENOXAPARIN 30 MG/0.3 ML SYRINGE SQ SCH (08:03)
[2023-09-10] MEDS: IPRATROPIUM-ALBUTEROL 3 ML NEB INHALATION SCH ×4 (09:07→21:49)
[2023-09-10] MEDS: BUDESONIDE 1 MG/2 ML NEBU INHALATION SCH ×3 (09:08→21:49)
[2023-09-10 10:04] LABS: Blood Urea Nitrogen 58.6 mg/dL (9.0-27.0); Calcium 9.4 mg/dL (8.7-10.3); Carbon Dioxide 21.4 mmol/L (21.6-31.8); Chloride 108 mmol/L (96-109); Glucose 107 mg/dL (70-110); Magnesium 1.4 mg/dL (1.5-2.4); Potassium 4.3 mmol/L (3.5-5.5); Sodium 142 mmol/L (135-145)
--- NOTE | 2023-09-10 11:43 | P.PN ---
Subjective Patient is seen in follow-up for acute kidney injury. Creatinine was 4.88 on admission and is down to 2.7 today. No diarrhea today. Oral intake fair. No vomiting. Has been voiding. Vital signs are stable. General: No acute distress. HEENT: Head exam is unremarkable. LUNGS: No audible rhonchi or wheezes. HEART: Rate and Rhythm are regular. ABDOMEN: Nontender. EXTREMITITES: No edema. Objective - Vital Signs Vital signs: Vital Signs Temp 98.1 F 09/10/23 07:21 Pulse 88 09/10/23 09:20 Resp 20 09/10/23 07:21 BP 148/74 09/10/23 07:21 Pulse Ox 99 09/10/23 07:21 FiO2 Intake & Output 09/09/23 09/10/23 09/10/23 18:59 06:59 18:59 Other: Voiding Method Toilet Urinal - Labs CBC & Chem 7: 09/07/23 15:54 09/10/23 06:49 Labs: Abnormal Lab Results - Last 24 Hours (Table) 09/09/23 09/10/23 Range/Units 12:43 06:49 Chloride 112 H (98-107) mmol/L Carbon Dioxide 19 L 21.4 L (22-30) mmol/L Anion Gap 12.60 H (4.00-12.00) mmol/L BUN 70 H 58.6 H (9-20) mg/dL Creatinine 3.16 H 2.7 H (0.66-1.25) mg/dL Est GFR (CKD-EPI) 26 L (>=60) BUN/Creatinine Ratio 21.70 H (12.00-20.00) Ratio Glucose 110 H (74-99) mg/dL Magnesium 1.4 L (1.5-2.4) mg/dL Assessment and Plan Plan: Assessment: 1. Acute kidney injury secondary to ATN secondary to hypovolemia from diarrhea and further worsened with the use of MARSHAL inhibitor. Creatinine 4.88 on admission and is 2.7 today. Unknown baseline renal function. No hydronephrosis noted on kidney ultrasound. Severe vascular calcifications noted in the kidneys. Bilateral kidney cysts also noted. Kidney ultrasound shows normal- sized kidneys with bilateral kidney cysts. 2. Metabolic acidosis secondary to acute kidney injury and GI losses. Improving with bicarb drip. 3. Hyperkalemia secondary to acute kidney injury, acidosis and MARSHAL inhibitor. Improved. 4. Unintentional weight loss. CAT scan shows wall thickening of the colon. 5. Hypomagnesemia from poor intake and GI losses. Plan: Change bicarb drip to normal saline. Add oral bicarb. Replace magnesium. Continue to hold MARSHAL inhibitor. Avoid nephrotoxins. Repeat labs in the morning.
[2023-09-10] MEDS: MAGNESIUM SULFATE-D5W PMX 1 GM in DEXTROSE/WATER 1 100ML.BAG IVPB SCH ×2 (15:24→17:30)
[2023-09-10] MEDS: SODIUM CHLORIDE 0.9% 1,000 ML IV SCH (15:24)
[2023-09-10] MEDS: SODIUM BICARBONATE TAB 650 MG TAB PO SCH ×3 (15:24→21:38)
[2023-09-10] MEDS: DEXTROSE 5% IN WATER 1,000 ML with SODIUM BICARB (1 MEQ/ML) 150 ML IV SCH (16:58)
[2023-09-10] MEDS: MAGNESIUM OXIDE 400 MG TAB PO SCH (17:30)
[2023-09-10] MEDS: ATORVASTATIN 40 MG TAB PO SCH (21:36)
--- NOTE | 2023-09-10 22:26 | P.PN ---
Progress Note - Text Progress Note Date: 09/10/23 Chief Complaint: Weak and tired This is a pleasant 57-year-old patient who follows with Dr. Uziel Caro. For about 3 months patient's progressively getting worse. Hold bodies and becoming stiff did get some antibiotic as an outpatient. Feels a little bit better. Went to see his family doctor who did his blood work and was sent to the hospital. In the last 4 weeks patient lost about 38 pounds. Denies any fever. For last 1 week patient also had diarrhea about 7-8 times in 24 hour period. The diarrhea is better in the hospital now. Has been losing weight. Poor appetite. Tired rundown. Patient been drinking about half a pint of alcohol. Was sometime. Patient is found in severe renal failure and admitted. 09/09/2023: Slow improvement in renal function. Remains on a bicarbonate drip. Some improvement in oral intake. Some improvement in a urine output. 09/10/2023: Patient is taken off the bicarbonate drip. Swished to by mouth. IV fluids at 75 mL an hour. Patient does feel weak and tired. But overall a bit better. Increase activity. Increase Coreg to 6.25 twice a day. Active Medications Acetaminophen (Acetaminophen Tab 325 Mg Tab) 650 mg PO Q6HR PRN PRN Reason: Mild Pain or Fever > 100.5 Last Admin: 09/09/23 15:30 Dose: 650 mg Acetaminophen/Codeine Phosphate (Acetaminophen-Codeine 300-30mg Tab) 1 each PO Q6HR PRN PRN Reason: Pain Last Admin: 09/10/23 05:45 Dose: 1 each Albuterol/Ipratropium (Ipratropium-Albuterol 3 Ml Neb) 3 ml INHALATION RT-TID [facility] Last Admin: 09/10/23 21:49 Dose: Not Given Alprazolam (Alprazolam 0.25 Mg Tab) 0.25 mg PO Q6HR PRN PRN Reason: Anxiety Atorvastatin Calcium (Atorvastatin 40 Mg Tab) 40 mg PO HS [facility] Last Admin: 09/10/23 21:36 Dose: 40 mg Budesonide (Budesonide 1 Mg/2 Ml Nebu) 1 mg INHALATION RT-BID [facility] Last Admin: 09/10/23 21:49 Dose: Not Given Calcium Carbonate/Glycine (Calcium Carbonate 500 Mg Chewable) 1,000 mg PO Q4HR PRN PRN Reason: Dyspepsia Carvedilol (Carvedilol 1.563 Mg Tab) 1.563 mg PO BID-W/MEALS [facility] Last Admin: 09/10/23 17:48 Dose: 1.563 mg Enoxaparin Sodium (Enoxaparin 30 Mg/0.3 Ml Syringe) 30 mg SQ DAILY [facility] Last Admin: 09/10/23 08:03 Dose: 30 mg Sodium Chloride (Saline 0.9%) 1,000 mls @ 75 mls/hr IV .[id number] [facility] Last Admin: 09/10/23 15:24 Dose: 75 mls/hr Lactulose (Lactulose 20 Gm/30 Ml Cup) 20 gm PO DAILY PRN PRN Reason: Constipation Magnesium Oxide (Magnesium Oxide 400 Mg Tab) 400 mg PO DAILY [facility] Last Admin: 09/10/23 17:30 Dose: 400 mg Naloxone HCl (Naloxone 0.4 Mg/Ml 1 Ml Vial) 0.2 mg IV Q2M PRN PRN Reason: Opioid Reversal Nicotine (Nicotine 21mg/24hr Patch) 1 patch TRANSDERM DAILY [facility] Last Admin: 09/10/23 08:02 Dose: 1 patch Pantoprazole Sodium (Pantoprazole 40 Mg Tablet) 40 mg PO DAILY [facility] Last Admin: 09/10/23 08:02 Dose: 40 mg Sodium Bicarbonate (Sodium Bicarbonate Tab 650 Mg Tab) 650 mg PO TID [facility] Last Admin: 09/10/23 21:38 Dose: 650 mg Temazepam (Temazepam 15 Mg Cap) 15 mg PO HS PRN PRN Reason: Insomnia Social history: Drinking half of pint of alcohol daily. This is his girlfriend Pastora. Smoked a pack and a half for about 40 years. Stopped 3-4 weeks ago. Used to do construction work Physical examination: VITAL SIGNS: 99, 93, 20, 147/82, 98% room air GENERAL: The edge of the bed, looking better EYES: Pupils equal. Conjunctiva normal. HEENT: External appearance of nose and ears normal, oral cavity grossly normal. NECK: JVD not raised; masses not palpable. HEART: First and second heart sounds are normal; no edema. LUNGS: Respiratory rate normal; clear to auscultation. ABDOMEN: Soft, nontender, liver spleen not palpable, no masses palpable. PSYCH: Alert and oriented x3; mood and affect normal. MUSCULOSKELETAL:No Clubbing/cyanosis;muscles-grossly intact Loss of muscle mass INVESTIGATIONS, reviewed in the clinical context: 09/10/2023: Potassium 4.3 creatinine 2.7 bicarb 21.4 09/09/2023: Potassium 4.2 bicarb 19 creatinine 3.16 09/08/2023: Potassium 4.3 bicarb 10 BUN 81 8 and 3.8 09/07/2023: White count 6.5 hemoglobin 11 platelets 197 potassium 5.5 bicarbonate 7 BUN 90 creatinine 4.88 EKG tracing personally reviewed by me-normal sinus rhythm. Some ST-T wave changes. Chest x-ray film personally reviewed by me-emphysema Computed tomography scan chest abdomen pelvis: Nonspecific findings. Assessment and plan: -Acute kidney injury likely combination of prerenal from decreased oral intake and ATN.: Slow improvement Stop Zestril. And allopurinol. IV fluids -Medical asthenia from severe renal failure: Slow improvement -Severe metabolic acidosis due to severe renal failure-improving IV bicarbonate drip, being changed over to oral bicarbonate -COPD in a current smoker DuoNeb -Chronic nicotine dependence, cigarette smoker Nicotine patch -GERD Protonix -Essential hypertension, patient now creeping up Stop amlodipine. Stop Zestril. His Coreg to 6.25 twice a day. Bicarbonate drip changed to oral bicarbonate. Increase Coreg to 6.25 twice a day. Past Medical History Additional Past Medical History / Comment(s): Gout, History of Any Multi-Drug Resistant Organisms: None Reported Past Surgical History: No Surgical Hx Reported Past Anesthesia/Blood Transfusion Reactions: No Reported Reaction Past Psychological History: No Psychological Hx Reported Smoking Status: Current every day smoker Past Alcohol Use History: Abuse, Daily Past Drug Use History: Marijuana
[2023-09-11] MEDS: carvediloL 6.25 MG TAB PO SCH ×3 (01:31→19:33)
[2023-09-11] MEDS: SODIUM CHLORIDE 0.9% 1,000 ML IV SCH ×2 (02:43→16:52)
[2023-09-11] MEDS: ACETAMINOPHEN TAB 325 MG TAB PO PRN ×2 (03:30→17:48)
[2023-09-11 05:00] LABS: African American GFR (CKD) 36 (>60 ml/min/1.73 sqM); Anion Gap 7 mmol/L; Blood Urea Nitrogen 50 mg/dL (9-20); Calcium 9.2 mg/dL (8.4-10.2); Carbon Dioxide 28 mmol/L (22-30); Chloride 107 mmol/L (98-107); Glucose 104 mg/dL (74-99); Non-African American GFR(CKD) 31 (>60 ml/min/1.73 sqM); Potassium 4.5 mmol/L (3.5-5.1); Sodium 142 mmol/L (137-145)
[2023-09-11] MEDS: BUDESONIDE 1 MG/2 ML NEBU INHALATION SCH ×2 (07:32→21:07)
[2023-09-11] MEDS: IPRATROPIUM-ALBUTEROL 3 ML NEB INHALATION SCH ×4 (07:32→21:07)
[2023-09-11] MEDS: NICOTINE 21MG/24HR PATCH TRANSDERM SCH (09:32)
[2023-09-11] MEDS: ENOXAPARIN 40 MG/0.4 ML SYRINGE SQ SCH (09:32)
[2023-09-11] MEDS: MAGNESIUM OXIDE 400 MG TAB PO SCH (09:32)
[2023-09-11] MEDS: SODIUM BICARBONATE TAB 650 MG TAB PO SCH (09:32)
[2023-09-11] MEDS: PANTOPRAZOLE 40 MG TABLET PO SCH (09:32)
--- NOTE | 2023-09-11 10:43 | P.PN ---
Subjective Patient is seen in follow-up for acute kidney injury. Creatinine was 4.88 on admission and is down to 2.23 today. No diarrhea. Oral intake fair. No vomiting. Has been voiding. Vital signs are stable. General: No acute distress. HEENT: Head exam is unremarkable. LUNGS: No audible rhonchi or wheezes. HEART: Rate and Rhythm are regular. ABDOMEN: Nontender. EXTREMITITES: No edema. Objective - Vital Signs Vital signs: Vital Signs Temp 99.1 F 09/11/23 07:50 Pulse 109 H 09/11/23 07:50 Resp 20 09/11/23 07:50 BP 147/87 09/11/23 07:50 Pulse Ox 97 09/11/23 07:50 FiO2 - Labs CBC & Chem 7: 09/07/23 15:54 09/11/23 04:03 Labs: Abnormal Lab Results - Last 24 Hours (Table) 09/11/23 Range/Units 04:03 BUN 50 H (9-20) mg/dL Creatinine 2.23 H (0.66-1.25) mg/dL Glucose 104 H (74-99) mg/dL Assessment and Plan Plan: Assessment: 1. Acute kidney injury secondary to ATN secondary to hypovolemia from diarrhea and further worsened with the use of MARSHAL inhibitor. Creatinine 4.88 on admission and is 2.23 today. Unknown baseline renal function. No hydronephrosis noted on kidney ultrasound. Severe vascular calcifications noted in the kidneys. Bilateral kidney cysts also noted. Kidney ultrasound shows normal-sized kidneys with bilateral kidney cysts. 2. Metabolic acidosis secondary to acute kidney injury and GI losses. Resolved with bicarb drip. 3. Hyperkalemia secondary to acute kidney injury, acidosis and MARSHAL inhibitor. Improved. 4. Unintentional weight loss. CAT scan shows wall thickening of the colon. 5. Hypomagnesemia from poor intake and GI losses. Replaced. Plan: Maintain normal saline. Stop bicarb. Continue to hold MARSHAL inhibitor. Avoid nephrotoxins. Repeat labs in the morning.
[2023-09-11] MEDS: amLODIPine 5 MG TAB PO SCH (12:39)
--- NOTE | 2023-09-11 17:39 | P.PN ---
Progress Note - Text Progress Note Date: 09/11/23 Chief Complaint: Weak and tired This is a pleasant 57-year-old patient who follows with Dr. Uziel Caro. For about 3 months patient's progressively getting worse. Hold bodies and becoming stiff did get some antibiotic as an outpatient. Feels a little bit better. Went to see his family doctor who did his blood work and was sent to the hospital. In the last 4 weeks patient lost about 38 pounds. Denies any fever. For last 1 week patient also had diarrhea about 7-8 times in 24 hour period. The diarrhea is better in the hospital now. Has been losing weight. Poor appetite. Tired rundown. Patient been drinking about half a pint of alcohol. Was sometime. Patient is found in severe renal failure and admitted. 09/09/2023: Slow improvement in renal function. Remains on a bicarbonate drip. Some improvement in oral intake. Some improvement in a urine output. 09/10/2023: Patient is taken off the bicarbonate drip. Swished to by mouth. IV fluids at 75 mL an hour. Patient does feel weak and tired. But overall a bit better. Increase activity. Increase Coreg to 6.25 twice a day. 09/11/2023: Appetite improving. Discussed with the patient's sister the bedside. On IV fluids and 75 mL an hour.. Creatinine down to 2.3. Patient and the sister did walk in the hallway. Active Medications Acetaminophen (Acetaminophen Tab 325 Mg Tab) 650 mg PO Q6HR PRN PRN Reason: Mild Pain or Fever > 100.5 Last Admin: 09/11/23 03:30 Dose: 650 mg Acetaminophen/Codeine Phosphate (Acetaminophen-Codeine 300-30mg Tab) 1 each PO Q6HR PRN PRN Reason: Pain Last Admin: 09/10/23 05:45 Dose: 1 each Albuterol/Ipratropium (Ipratropium-Albuterol 3 Ml Neb) 3 ml INHALATION RT-TID [facility] Last Admin: 09/11/23 11:47 Dose: Not Given Alprazolam (Alprazolam 0.25 Mg Tab) 0.25 mg PO Q6HR PRN PRN Reason: Anxiety Amlodipine Besylate (Amlodipine 5 Mg Tab) 5 mg PO DAILY [facility] Last Admin: 09/11/23 12:39 Dose: 5 mg Atorvastatin Calcium (Atorvastatin 40 Mg Tab) 40 mg PO HS [facility] Last Admin: 09/10/23 21:36 Dose: 40 mg Budesonide (Budesonide 1 Mg/2 Ml Nebu) 1 mg INHALATION RT-BID [facility] Last Admin: 09/11/23 07:32 Dose: 1 mg Calcium Carbonate/Glycine (Calcium Carbonate 500 Mg Chewable) 1,000 mg PO Q4HR PRN PRN Reason: Dyspepsia Carvedilol (Carvedilol 6.25 Mg Tab) 6.25 mg PO BID-W/MEALS [facility] Last Admin: 09/11/23 09:32 Dose: 6.25 mg Enoxaparin Sodium (Enoxaparin 40 Mg/0.4 Ml Syringe) 40 mg SQ DAILY [facility] Last Admin: 09/11/23 09:32 Dose: 40 mg Sodium Chloride (Saline 0.9%) 1,000 mls @ 75 mls/hr IV .[id number] [facility] Last Admin: 09/11/23 16:52 Dose: Not Given Lactulose (Lactulose 20 Gm/30 Ml Cup) 20 gm PO DAILY PRN PRN Reason: Constipation Magnesium Oxide (Magnesium Oxide 400 Mg Tab) 400 mg PO DAILY [facility] Last Admin: 09/11/23 09:32 Dose: 400 mg Naloxone HCl (Naloxone 0.4 Mg/Ml 1 Ml Vial) 0.2 mg IV Q2M PRN PRN Reason: Opioid Reversal Nicotine (Nicotine 21mg/24hr Patch) 1 patch TRANSDERM DAILY [facility] Last Admin: 09/11/23 09:32 Dose: 1 patch Pantoprazole Sodium (Pantoprazole 40 Mg Tablet) 40 mg PO DAILY [facility] Last Admin: 09/11/23 09:32 Dose: 40 mg Temazepam (Temazepam 15 Mg Cap) 15 mg PO HS PRN PRN Reason: Insomnia Social history: Drinking half of pint of alcohol daily. This is his girlfriend Pastora. Smoked a pack and a half for about 40 years. Stopped 3-4 weeks ago. Used to do construction work Physical examination: VITAL SIGNS: 97.9, 101, 20, 1 3393, 97% room air GENERAL: In, more comfortable EYES: Pupils equal. Conjunctiva normal. HEENT: External appearance of nose and ears normal, oral cavity grossly normal. NECK: JVD not raised; masses not palpable. HEART: First and second heart sounds are normal; no edema. LUNGS: Respiratory rate normal; clear to auscultation. ABDOMEN: Soft, nontender, liver spleen not palpable, no masses palpable. PSYCH: Alert and oriented x3; mood and affect normal. MUSCULOSKELETAL:No Clubbing/cyanosis;muscles-grossly intact Loss of muscle mass INVESTIGATIONS, reviewed in the clinical context: September 11: Potassium 4.5 creatinine 2.23 09/10/2023: Potassium 4.3 creatinine 2.7 bicarb 21.4 09/09/2023: Potassium 4.2 bicarb 19 creatinine 3.16 09/08/2023: Potassium 4.3 bicarb 10 BUN 81 8 and 3.8 09/07/2023: White count 6.5 hemoglobin 11 platelets 197 potassium 5.5 bicarbonate 7 BUN 90 creatinine 4.88 EKG tracing personally reviewed by me-normal sinus rhythm. Some ST-T wave changes. Chest x-ray film personally reviewed by me-emphysema Computed tomography scan chest abdomen pelvis: Nonspecific findings. Assessment and plan: -Acute kidney injury likely combination of prerenal from decreased oral intake and ATN.: Slow improvement Stop Zestril. And allopurinol. IV fluids -Medical asthenia from severe renal failure: Slow improvement -Severe metabolic acidosis due to severe renal failure-improving IV bicarbonate drip, being changed over to oral bicarbonate -COPD in a current smoker DuoNeb -Chronic nicotine dependence, cigarette smoker Nicotine patch -GERD Protonix -Essential hypertension, patient now creeping up amlodipine I milligram added. Stop Zestril. Increase Coreg to 12.5 twice a day. Increase activity. Past Medical History Additional Past Medical History / Comment(s): Gout, History of Any Multi-Drug Resistant Organisms: None Reported Past Surgical History: No Surgical Hx Reported Past Anesthesia/Blood Transfusion Reactions: No Reported Reaction Past Psychological History: No Psychological Hx Reported Smoking Status: Current every day smoker Past Alcohol Use History: Abuse, Daily Past Drug Use History: Marijuana
[2023-09-11] MEDS: carvediloL 12.5 MG TAB PO SCH (17:53)
[2023-09-11] MEDS: ATORVASTATIN 40 MG TAB PO SCH (20:05)
[2023-09-12] MEDS: Acetaminophen-Codeine 300-30mg TAB PO PRN (03:29)
[2023-09-12] MEDS: SODIUM CHLORIDE 0.9% 1,000 ML IV SCH ×2 (03:32→16:54)
[2023-09-12 04:25] LABS: African American GFR (CKD) 43 (>60 ml/min/1.73 sqM); Anion Gap 10 mmol/L; Blood Urea Nitrogen 41 mg/dL (9-20); Calcium 8.8 mg/dL (8.4-10.2); Carbon Dioxide 23 mmol/L (22-30); Chloride 107 mmol/L (98-107); Glucose 87 mg/dL (74-99); Magnesium 1.6 mg/dL (1.6-2.3); Non-African American GFR(CKD) 37 (>60 ml/min/1.73 sqM); Sodium 140 mmol/L (137-145)
[2023-09-12] MEDS: carvediloL 12.5 MG TAB PO SCH ×2 (06:02→16:54)
[2023-09-12] MEDS: IPRATROPIUM-ALBUTEROL 3 ML NEB INHALATION SCH ×2 (07:30→21:07)
[2023-09-12] MEDS: BUDESONIDE 1 MG/2 ML NEBU INHALATION SCH ×2 (07:30→21:07)
[2023-09-12] MEDS: amLODIPine 5 MG TAB PO SCH (10:06)
[2023-09-12] MEDS: PANTOPRAZOLE 40 MG TABLET PO SCH (10:06)
[2023-09-12] MEDS: ENOXAPARIN 40 MG/0.4 ML SYRINGE SQ SCH (10:06)
[2023-09-12] MEDS: MAGNESIUM OXIDE 400 MG TAB PO SCH (10:06)
[2023-09-12] MEDS: NICOTINE 21MG/24HR PATCH TRANSDERM SCH (10:07)
[2023-09-12] MEDS: MAGNESIUM SULFATE-D5W PMX 1 GM in DEXTROSE/WATER 1 100ML.BAG IVPB SCH ×2 (10:27→11:49)
--- NOTE | 2023-09-12 10:59 | P.PN ---
Subjective Patient is seen in follow-up for acute kidney injury. Creatinine was 4.88 on admission and is down to 1.94 today. No diarrhea. Oral intake fair. No vomiting. Has been voiding. No active complaints. Vital signs are stable. General: No acute distress. HEENT: Head exam is unremarkable. LUNGS: No audible rhonchi or wheezes. HEART: Rate and Rhythm are regular. ABDOMEN: Nontender. EXTREMITITES: No edema. Objective - Vital Signs Vital signs: Vital Signs Temp 98.4 F 09/12/23 07:01 Pulse 95 09/12/23 07:41 Resp 19 09/12/23 07:01 BP 143/83 09/12/23 07:01 Pulse Ox 98 09/12/23 07:01 FiO2 Intake & Output 09/11/23 09/12/23 09/12/23 18:59 06:59 18:59 Other: # Voids 2 - Labs CBC & Chem 7: 09/07/23 15:54 09/12/23 03:41 Labs: Abnormal Lab Results - Last 24 Hours (Table) 09/12/23 Range/Units 03:41 BUN 41 H (9-20) mg/dL Creatinine 1.94 H (0.66-1.25) mg/dL Assessment and Plan Plan: Assessment: 1. Acute kidney injury secondary to ATN secondary to hypovolemia from diarrhea and further worsened with the use of MARSHAL inhibitor. Creatinine 4.88 on admission and is improved to 1.94 today. Unknown baseline renal function. No hydronephrosis noted on kidney ultrasound. Severe vascular calcifications noted in the kidneys. Bilateral kidney cysts also noted. Kidney ultrasound shows normal-sized kidneys with bilateral kidney cysts. 2. Metabolic acidosis secondary to acute kidney injury and GI losses. Resolved with bicarb drip. 3. Hyperkalemia secondary to acute kidney injury, acidosis and MARSHAL inhibitor. Improved. 4. Unintentional weight loss. CAT scan shows wall thickening of the colon. 5. Hypomagnesemia from poor intake and GI losses. Replaced. on oral magnesium oxide. Plan: Maintain normal saline. 2 g IV magnesium sulfate today. Continue to hold MARSHAL inhibitor. Avoid nephrotoxins. Repeat labs in the morning.
[2023-09-12] MEDS ORDERED: DICLOFENAC SODIUM GEL 100 GM TUBE TOPICAL PRN (14:48)
--- NOTE | 2023-09-12 18:47 | P.PN ---
Progress Note - Text Progress Note Date: 09/12/23 Chief Complaint: Weak and tired This is a pleasant 57-year-old patient who follows with Dr. Uziel Caro. For about 3 months patient's progressively getting worse. Hold bodies and becoming stiff did get some antibiotic as an outpatient. Feels a little bit better. Went to see his family doctor who did his blood work and was sent to the hospital. In the last 4 weeks patient lost about 38 pounds. Denies any fever. For last 1 week patient also had diarrhea about 7-8 times in 24 hour period. The diarrhea is better in the hospital now. Has been losing weight. Poor appetite. Tired rundown. Patient been drinking about half a pint of alcohol. Was sometime. Patient is found in severe renal failure and admitted. 09/09/2023: Slow improvement in renal function. Remains on a bicarbonate drip. Some improvement in oral intake. Some improvement in a urine output. 09/10/2023: Patient is taken off the bicarbonate drip. Swished to by mouth. IV fluids at 75 mL an hour. Patient does feel weak and tired. But overall a bit better. Increase activity. Increase Coreg to 6.25 twice a day. 09/11/2023: Appetite improving. Discussed with the patient's sister the bedside. On IV fluids and 75 mL an hour.. Creatinine down to 2.3. Patient and the sister did walk in the hallway. 09/12/2023: Creatinine is slowly coming down. Continues with gentle hydration. Having some tingling in the fingers. Added multivitamin. Magnesium is being replaced. Spoke to the patient's sister. About lifestyle changes. Walking in the hallway. Active Medications Acetaminophen (Acetaminophen Tab 325 Mg Tab) 650 mg PO Q6HR PRN PRN Reason: Mild Pain or Fever > 100.5 Last Admin: 09/11/23 17:48 Dose: 650 mg Acetaminophen/Codeine Phosphate (Acetaminophen-Codeine 300-30mg Tab) 1 each PO Q6HR PRN PRN Reason: Pain Last Admin: 09/12/23 03:29 Dose: 1 each Albuterol/Ipratropium (Ipratropium-Albuterol 3 Ml Neb) 3 ml INHALATION RT-BID [facility] Last Admin: 09/12/23 07:30 Dose: 3 ml Alprazolam (Alprazolam 0.25 Mg Tab) 0.25 mg PO Q6HR PRN PRN Reason: Anxiety Amlodipine Besylate (Amlodipine 5 Mg Tab) 5 mg PO DAILY [facility] Last Admin: 09/12/23 10:06 Dose: 5 mg Atorvastatin Calcium (Atorvastatin 40 Mg Tab) 40 mg PO HS [facility] Last Admin: 09/11/23 20:05 Dose: 40 mg Budesonide (Budesonide 1 Mg/2 Ml Nebu) 1 mg INHALATION RT-BID [facility] Last Admin: 09/12/23 07:30 Dose: 1 mg Calcium Carbonate/Glycine (Calcium Carbonate 500 Mg Chewable) 1,000 mg PO Q4HR PRN PRN Reason: Dyspepsia Carvedilol (Carvedilol 12.5 Mg Tab) 12.5 mg PO BID-W/MEALS [facility] Last Admin: 09/12/23 16:54 Dose: 12.5 mg Diclofenac Sodium (Diclofenac Sodium Gel 100 Gm Tube) 2 gm TOPICAL QID PRN; Protocol PRN Reason: Pain Enoxaparin Sodium (Enoxaparin 40 Mg/0.4 Ml Syringe) 40 mg SQ DAILY [facility] Last Admin: 09/12/23 10:06 Dose: 40 mg Sodium Chloride (Saline 0.9%) 1,000 mls @ 75 mls/hr IV .[id number] [facility] Last Admin: 09/12/23 16:54 Dose: 75 mls/hr Lactulose (Lactulose 20 Gm/30 Ml Cup) 20 gm PO DAILY PRN PRN Reason: Constipation Magnesium Oxide (Magnesium Oxide 400 Mg Tab) 400 mg PO DAILY [facility] Last Admin: 09/12/23 10:06 Dose: 400 mg Multivitamins (Multivitamins, Thera 1 Each Tab) 1 each PO DAILY [facility] Naloxone HCl (Naloxone 0.4 Mg/Ml 1 Ml Vial) 0.2 mg IV Q2M PRN PRN Reason: Opioid Reversal Nicotine (Nicotine 21mg/24hr Patch) 1 patch TRANSDERM DAILY [facility] Last Admin: 09/12/23 10:07 Dose: 1 patch Pantoprazole Sodium (Pantoprazole 40 Mg Tablet) 40 mg PO DAILY [facility] Last Admin: 09/12/23 10:06 Dose: 40 mg Temazepam (Temazepam 15 Mg Cap) 15 mg PO HS PRN PRN Reason: Insomnia Social history: Drinking half of pint of alcohol daily. This is his girlfriend Pastora. Smoked a pack and a half for about 40 years. Stopped 3-4 weeks ago. Used to do construction work Physical examination: VITAL SIGNS: 98.8, 88, 19, 146/77, 100% room air GENERAL: At the edge of the bed, comfortable EYES: Pupils equal. Conjunctiva normal. HEENT: External appearance of nose and ears normal, oral cavity grossly normal. NECK: JVD not raised; masses not palpable. HEART: First and second heart sounds are normal; no edema. LUNGS: Respiratory rate normal; clear to auscultation. ABDOMEN: Soft, nontender, liver spleen not palpable, no masses palpable. PSYCH: Alert and oriented x3; mood and affect normal. MUSCULOSKELETAL:No Clubbing/cyanosis;muscles-grossly intact Loss of muscle mass INVESTIGATIONS, reviewed in the clinical context: 09/12/2023: Potassium 4 creatinine 1.94 magnesia 1.6 09/07/2023: White count 6.5 hemoglobin 11 platelets 197 potassium 5.5 bicarbonate 7 BUN 90 creatinine 4.88 EKG tracing personally reviewed by me-normal sinus rhythm. Some ST-T wave changes. Chest x-ray film personally reviewed by me-emphysema Computed tomography scan chest abdomen pelvis: Nonspecific findings. Assessment and plan: -Acute kidney injury likely combination of prerenal from decreased oral intake and ATN.: Improving Stop Zestril. And allopurinol. IV fluids -Medical asthenia from severe renal failure: Slow improvement -Severe metabolic acidosis due to severe renal failure-improving IV bicarbonate drip, being changed over to oral bicarbonate -COPD in a current smoker DuoNeb -Chronic nicotine dependence, cigarette smoker Nicotine patch -GERD Protonix -Essential hypertension, patient now creeping up amlodipine 5 mg Stop Zestril. Coreg to 12.5 twice a day. Increase activity. Discussed with the patient's sister. Past Medical History Additional Past Medical History / Comment(s): Gout, History of Any Multi-Drug Resistant Organisms: None Reported Past Surgical History: No Surgical Hx Reported Past Anesthesia/Blood Transfusion Reactions: No Reported Reaction Past Psychological History: No Psychological Hx Reported Smoking Status: Current every day smoker Past Alcohol Use History: Abuse, Daily Past Drug Use History: Marijuana
[2023-09-12 19:24] LABS: Glucose,Whole Blood 109 mg/dL (70-110)
[2023-09-12] MEDS: ATORVASTATIN 40 MG TAB PO SCH (20:12)
[2023-09-12] MEDS: MULTIVITAMINS, THERA 1 EACH TAB PO SCH (20:12)
[2023-09-13 05:05] LABS: African American GFR (CKD) 43 (>60 ml/min/1.73 sqM); Anion Gap 11 mmol/L; Blood Urea Nitrogen 32 mg/dL (9-20); Calcium 9.1 mg/dL (8.4-10.2); Carbon Dioxide 22 mmol/L (22-30); Chloride 109 mmol/L (98-107); Glucose 107 mg/dL (74-99); Magnesium 1.6 mg/dL (1.6-2.3); Non-African American GFR(CKD) 37 (>60 ml/min/1.73 sqM); Potassium 4.2 mmol/L (3.5-5.1); Sodium 142 mmol/L (137-145)
[2023-09-13] MEDS: carvediloL 12.5 MG TAB PO SCH (06:01)
[2023-09-13] MEDS: SODIUM CHLORIDE 0.9% 1,000 ML IV SCH (06:04)
[2023-09-13 07:48] VITALS: BP 139/72; PULSE 87; TEMP 98.7
[2023-09-13] MEDS: MULTIVITAMINS, THERA 1 EACH TAB PO SCH (08:37)
[2023-09-13] MEDS: MAGNESIUM OXIDE 400 MG TAB PO SCH (08:37)
[2023-09-13] MEDS: ENOXAPARIN 40 MG/0.4 ML SYRINGE SQ SCH (08:37)
[2023-09-13] MEDS: NICOTINE 21MG/24HR PATCH TRANSDERM SCH (08:37)
[2023-09-13] MEDS: PANTOPRAZOLE 40 MG TABLET PO SCH (08:37)
[2023-09-13] MEDS: amLODIPine 5 MG TAB PO SCH (08:37)
[2023-09-13] MEDS: IPRATROPIUM-ALBUTEROL 3 ML NEB INHALATION SCH (08:50)
[2023-09-13] MEDS: BUDESONIDE 1 MG/2 ML NEBU INHALATION SCH (08:50)
[2023-09-13 09:03] VITALS: RESP 18
--- NOTE | 2023-09-13 10:54 | P.PN ---
Subjective Patient is seen in follow-up for acute kidney injury. Creatinine was 4.88 on admission and is down to 1.92 today. No diarrhea. Oral intake fair. No vomiting. Has been voiding. No active complaints. Vital signs are stable. General: No acute distress. HEENT: Head exam is unremarkable. LUNGS: No audible rhonchi or wheezes. HEART: Rate and Rhythm are regular. ABDOMEN: Nontender. EXTREMITITES: No edema. Objective - Vital Signs Vital signs: Vital Signs Temp 98.7 F 09/13/23 07:06 Pulse 87 09/13/23 09:09 Resp 18 09/13/23 09:09 BP 139/72 09/13/23 07:06 Pulse Ox 97 09/13/23 07:06 FiO2 Intake & Output 09/12/23 09/13/23 09/13/23 18:59 06:59 18:59 Other: Voiding Method Toilet Urinal # Voids 6 # Bowel Movements 1 - Labs CBC & Chem 7: 09/07/23 15:54 09/13/23 04:21 Labs: Abnormal Lab Results - Last 24 Hours (Table) 09/13/23 Range/Units 04:21 Chloride 109 H (98-107) mmol/L BUN 32 H (9-20) mg/dL Creatinine 1.92 H (0.66-1.25) mg/dL Glucose 107 H (74-99) mg/dL Assessment and Plan Plan: Assessment: 1. Acute kidney injury secondary to ATN secondary to hypovolemia from diarrhea and further worsened with the use of MARSHAL inhibitor. Creatinine 4.88 on admission and is improved to 1.92 today. Unknown baseline renal function. No hydronephrosis noted on kidney ultrasound. Severe vascular calcifications noted in the kidneys. Bilateral kidney cysts also noted. Kidney ultrasound shows normal-sized kidneys with bilateral kidney cysts. 2. Metabolic acidosis secondary to acute kidney injury and GI losses. Resolved with bicarb drip. 3. Hyperkalemia secondary to acute kidney injury, acidosis and MARSHAL inhibitor. Improved. 4. Unintentional weight loss. CAT scan shows wall thickening of the colon. 5. Hypomagnesemia from poor intake and GI losses. Replaced. On oral magnesium oxide. Plan: Hep-Lock IV fluids. Increase magnesium oxide frequency to twice a day. Continue to hold MARSHAL inhibitor. Avoid nephrotoxins. Repeat BMP and magnesium level 2-3 days post discharge. Follow up outpatient in 1 week.
--- NOTE | 2023-09-13 19:37 | P.PN ---
Progress Note - Text Progress Note Date: 09/13/23 Chief Complaint: Weak and tired This is a pleasant 57-year-old patient who follows with Dr. Uziel Caro. For about 3 months patient's progressively getting worse. Hold bodies and becoming stiff did get some antibiotic as an outpatient. Feels a little bit better. Went to see his family doctor who did his blood work and was sent to the hospital. In the last 4 weeks patient lost about 38 pounds. Denies any fever. For last 1 week patient also had diarrhea about 7-8 times in 24 hour period. The diarrhea is better in the hospital now. Has been losing weight. Poor appetite. Tired rundown. Patient been drinking about half a pint of alcohol. Was sometime. Patient is found in severe renal failure and admitted. 09/09/2023: Slow improvement in renal function. Remains on a bicarbonate drip. Some improvement in oral intake. Some improvement in a urine output. 09/10/2023: Patient is taken off the bicarbonate drip. Swished to by mouth. IV fluids at 75 mL an hour. Patient does feel weak and tired. But overall a bit better. Increase activity. Increase Coreg to 6.25 twice a day. 09/11/2023: Appetite improving. Discussed with the patient's sister the bedside. On IV fluids and 75 mL an hour.. Creatinine down to 2.3. Patient and the sister did walk in the hallway. 09/12/2023: Creatinine is slowly coming down. Continues with gentle hydration. Having some tingling in the fingers. Added multivitamin. Magnesium is being replaced. Spoke to the patient's sister. About lifestyle changes. Walking in the hallway. 09/13/2023: Treatment has leveled off at 1.92. Discussed with Dr. Thurman from nephrology. Okay to OK. Discussed with patient. Questions answered. Last eye changes again reemphasized. Follow-up lab- 1 week. He'll follow-up with nephrology Discussion and discharge planning more than 35 minutes Social history: Drinking half of pint of alcohol daily. This is his girlfriend Pastora. Smoked a pack and a half for about 40 years. Stopped 3-4 weeks ago. Used to do construction work Physical examination: VITAL SIGNS: 98.7, 87, 19, 139/72, 97% room air GENERAL: Sitting up comfortable EYES: Pupils equal. Conjunctiva normal. HEENT: External appearance of nose and ears normal, oral cavity grossly normal. NECK: JVD not raised; masses not palpable. HEART: First and second heart sounds are normal; no edema. LUNGS: Respiratory rate normal; clear to auscultation. ABDOMEN: Soft, nontender, liver spleen not palpable, no masses palpable. PSYCH: Alert and oriented x3; mood and affect normal. MUSCULOSKELETAL:No Clubbing/cyanosis;muscles-grossly intact Loss of muscle mass INVESTIGATIONS, reviewed in the clinical context: 09/13/2023: Potassium 4.2 BUN 32 creatinine 1.9 to 09/07/2023: White count 6.5 hemoglobin 11 platelets 197 potassium 5.5 bicarbonate 7 BUN 90 creatinine 4.88 EKG tracing personally reviewed by me-normal sinus rhythm. Some ST-T wave changes. Chest x-ray film personally reviewed by me-emphysema Computed tomography scan chest abdomen pelvis: Nonspecific findings. Assessment and plan: -Acute kidney injury likely combination of prerenal from decreased oral intake and ATN.: Stabilized Stop Zestril. Received IV fluids. Admission creatinine was 4.88. Today 1.9 to -Medical asthenia from severe renal failure: Improved -Severe metabolic acidosis due to severe renal -improved IV bicarbonate drip, being changed over to oral bicarbonate -COPD in a current smoker DuoNeb Charge on Symbicort 80/4.5 one puff twice a day -Chronic nicotine dependence, cigarette smoker Nicotine patch -GERD Protonix -Essential hypertension, amlodipine 5 mg Stop Zestril. Coreg to 12.5 twice a day. Disposition: Home Past Medical History Additional Past Medical History / Comment(s): Gout, History of Any Multi-Drug Resistant Organisms: None Reported Past Surgical History: No Surgical Hx Reported Past Anesthesia/Blood Transfusion Reactions: No Reported Reaction Past Psychological History: No Psychological Hx Reported Smoking Status: Current every day smoker Past Alcohol Use History: Abuse, Daily Past Drug Use History: Marijuana
[2023-09-13] MEDS ORDERED: MAGNESIUM OXIDE 400 MG TAB PO SCH (21:00)
== END 2023-09-13 13:14 | disposition home or self-care (01) | DRG 469 ==
LOC: EC 14:58 → 4SSUR 21:30
PROVIDERS: ADMIT Hospitalist; ATTEND Hospitalist
DX: N17.0 Acute kidney failure with tubular necrosis (principal); N28.1 Cyst of kidney, acquired; K59.00 Constipation, unspecified; E83.42 Hypomagnesemia; E86.1 Hypovolemia; E87.20 Acidosis, unspecified; E87.5 Hyperkalemia; F17.210 Nicotine dependence, cigarettes, uncomplicated; F41.9 Anxiety disorder, unspecified; F10.10 Alcohol abuse, uncomplicated; R53.1 Weakness; R63.4 Abnormal weight loss; G47.00 Insomnia, unspecified; I10 Essential (primary) hypertension; J44.9 Chronic obstructive pulmonary disease, unspecified; K21.9 Gastro-esophageal reflux disease without esophagitis; Z79.899 Other long term (current) drug therapy; Z28.21 Immunization not carried out because of patient refusal; Z68.21 Body mass index [BMI] 21.0-21.9, adult
CPT/HCPCS: 36415; 71046; 71250; 74176; 76770; 80048; 80053; 81001; 82150; 83605; 83690; 83735; 84484; 85025; 93005; 94640; 96361; 96374; 96375; 99285

== ENCOUNTER 2024-04-03 07:07 | Inpatient (IN) | payer OTHER ==
[2024-04-03 07:23] LABS: Glucose,Whole Blood 122 mg/dL (70-110)
[2024-04-03] MEDS ORDERED: LORazepam 2 MG/ML INJ IV PRN ×2 (07:25)
--- NOTE | 2024-04-03 07:39 | ED ---
General Adult HPI - General Chief complaint: Weakness Stated complaint: Hypoglycemia, dehydration, ETOH Time Seen by Provider: 04/03/24 07:09 Source: patient, EMS Mode of arrival: EMS Limitations: altered mental status - History of Present Illness Initial comments: Dictation was produced using v2tel dictation software. please excuse any grammatical, word or spelling errors. Chief Complaint: 58-year-old alcoholic male presents with dizziness History of Present Illness: Patient is a 58-year-old male presents emergency department with what he reports as dizziness and sweating. Patient is an alcoholic drinks large amounts of liquor daily. EMS upon arrival states that patient's blood sugar was 50. Patient has history of alcoholism and severe wi thdrawals in the past. He does feel interested in quitting. Since his sugar was treated by EMS his symptoms resolved significantly. Patient states that he feels well at the bedside. The ROS documented in this emergency department record has been reviewed and confirmed by me. Those systems with pertinent positive or negative responses have been documented in the HPI. All other systems are other negative and/or noncontributory. - Related Data Home Medications Medication Instructions Recorded Confirmed Atorvastatin [Lipitor] 40 mg PO HS 09/07/23 04/03/24 Omeprazole 20 mg PO DAILY 09/07/23 04/03/24 allopurinoL [Zyloprim] 100 mg PO DAILY 09/07/23 04/03/24 Cholecalciferol [Vitamin D3 (25 25 mcg PO DAILY 04/03/24 04/03/24 Mcg = 1000 Iu)] Empagliflozin [Jardiance] 10 mg PO DIRECTED 04/03/24 04/03/24 Ferrous Sulfate [Feosol] 325 mg PO DAILY 04/03/24 04/03/24 Nicotine 14Mg/24Hr Patch [Habitrol 1 patch TRANSDERM DAILY PRN 04/03/24 04/03/24 14Mg/24Hr Patch] Nortriptyline [Pamelor] 10 mg PO HS PRN 04/03/24 04/03/24 amLODIPine [Norvasc] 10 mg PO DAILY 04/03/24 04/03/24 lisinopriL [Zestril] 10 mg PO DAILY 04/03/24 04/03/24 Previous Rx's Medication Instructions Recorded Magnesium Oxide [Mag-Ox] 400 mg PO DAILY #30 tab 09/13/23 Allergies Allergy/AdvReac Type Severity Reaction Status Date / Time No Known Allergies Allergy Verified 04/03/24 09:43 Review of Systems ROS Statement: Those systems with pertinent positive or pertinent negative responses have been documented in the HPI. ROS Other: All systems not noted in ROS Statement are negative. Past Medical History Additional Past Medical History / Comment(s): Gout, History of Any Multi-Drug Resistant Organisms: None Reported Past Surgical History: No Surgical Hx Reported Past Anesthesia/Blood Transfusion Reactions: No Reported Reaction Past Psychological History: No Psychological Hx Reported Smoking Status: Current every day smoker Past Alcohol Use History: Abuse, Daily Past Drug Use History: Marijuana General Exam - General Exam Comments Initial Comments: PHYSICAL EXAM: General Impression: Alert and oriented x3, not in acute distress HEENT: Normocephalic atraumatic, extra-ocular movements intact, pupils equal and reactive to light bilaterally, mucous membranes moist. Cardiovascular: Heart regular rate and rhythm Chest: Able to complete full sentences, no retractions, no tachypnea Abdomen: abdomen soft, non-tender, non-distended, no organomegaly Musculoskeletal: Pulses present and equal in all extremities, no peripheral edema Motor: no focal deficits noted Neurological: CN II-XII grossly intact, no focal motor or sensory deficits noted Skin: Intact with no visualized rashes Psych: Normal affect and mood Limitations: altered mental status Course Vital Signs 04/03/24 04/03/24 04/03/24 07:14 09:45 09:59 Temperature 98 F Pulse Rate 88 88 103 H Respiratory 18 22 Rate Blood Pressure 114/51 140/71 O2 Sat by Pulse 100 97 Oximetry 04/03/24 04/03/24 10:00 10:14 Temperature Pulse Rate 96 106 H Respiratory 18 Rate Blood Pressure 141/71 O2 Sat by Pulse 100 Oximetry - Reevaluation(s) Reevaluation #1: 04/03/24 09:[address] Curiel. Labs and clinical presentation along with vitals were explained to her. She request that we send toxic alcohol levels. According to our lab we can only can order ethylene glycol levels. We are unable to obtain isopropyl alcohol or methanol levels. She request that BMP be ordered for hours after initial BMP levels to assess the need for possible dialysis. EKG Findings - EKG Comments: EKG Findings:: My EKG interpretation: Ventricular rate 82, sinus rhythm,. 09/12/1977, QRS 120, QTc 413. No [place] prolongation, no QTC prolongation, no ST or T- wave changes noted. Overall, this EKG is unremarkable Medical Decision Making - Medical Decision Making Was pt. sent in by a medical professional or institution (, PA, [employer], urgent care, hospital, or senior care...) When possible be specific @ -No Did you speak to anyone other than the patient for history (EMS, parent, family, police, friend...)? What history was obtained from this source @ -Yes by EMS as described above Did you review nursing and triage notes (agree or disagree)? Why? @ -I reviewed and agree with nursing and triage notes Were old charts reviewed (outside hosp., previous admission, EMS record, old EKG, old radiological studies, urgent care reports/EKG's, senior care records)? Report findings @ -No old charts were reviewed Differential Diagnosis (chest pain, altered mental status, abdominal pain women, abdominal pain men, vaginal bleeding, musculoskeletal, weakness, fever, dyspnea, syncope, headache, dizziness, GI bleed, back pain, seizure, CVA, palpatations, m ental health)? @ -Differential Weakness: Hypoglycemia, shock, sepsis, hyponatremia, anemia, infection, HI, ETOH, adverse medicine reaction, overdose, stroke, this is not meant to be an all-inclusive list. EKG interpreted by me (3pts min.). @ -See above X-rays interpreted by me (1pt min.). @ -None done CT interpreted by me (1pt min.). @ -None done U/S interpreted by me (1pt. min.). @ -Ultrasound of the kidneys, ureter and bladder shows no hydronephrosis. What testing was considered but not performed or refused? (CT, X-rays, U/S, labs)? Why? @ -None What meds were considered but not given or refused? Why? @ -None Was smoking cessation discussed for >3mins.? @ -No Were there social determinants of health that impacted care today? How? (Homelessness, low income, unemployed, alcoholism, drug addiction, transportation, low edu. Level, literacy, decrease access to med. care, long term, rehab)? @ -Alcoholism Was there de-escalation of care discussed even if they declined (Discuss DNR or withdrawal of care, Hospice)? DNR status @ -No What co-morbidities impacted this encounter? (DM, HTN, Smoking, COPD, CAD, Cancer, CVA, ARF, Chemo, Hep., AIDS, mental health diagnosis, sleep apnea, mo rbid obesity)? @ -None Was patient admitted / discharged? Hospital course, mention meds given and r oute, prescriptions, significant lab abnormalities, going to OR and other pertinent info. @ -58-year-old male presents emergency department hyperglycemia. Vital signs upon arrival are within acceptable limits. Laboratory evaluation obtained. CBC is within acceptable limits. Metabolic panel shows hyponatremia 120 with potassium 6.2 bicarb less than 5, significant elevated renal markers. Lactic acidosis 2.2. Serum alcohol is negative. Did you discuss the management of the patient with other professionals (professionals i.e. , PA, [employer], lab, RT, psych nurse, sexual assault social worker, floor service worker spring, teacher, fourth officer, manager rn case)? Give summary @ -See above Was critical care preformed (if so, how long)? @ -Yes, 77 minutes Undiagnosed new problem with uncertain prognosis? @ -No Drug Therapy requiring intensive monitoring for toxicity (Heparin, Nitro, Insulin, Cardizem)? @ -No Were any procedures done? @ -No Diagnosis/symptom? Acute, or Chronic, or Acute on Chronic? Uncomplicated (without systemic symptoms) or Complicated (systemic symptoms)? @ -Hyperglycemia, hyperkalemia, acute kidney injury Side effects of treatment? @ -No Exacerbation, Progression, or Severe Exacerbation? @ -No Poses a threat to life or bodily function? How? (Chest pain, USA, HI, pneumonia, PE, COPD, DKA, ARF, appy, cholecystitis, CVA, Diverticulitis, Homicidal, Suicidal, threat to staff... and all critical care pts) @ -yes - Lab Data Result diagrams: 04/03/24 07:25 04/03/24 07:25 Lab Results 04/03/24 04/03/24 04/03/24 Range/Units 07:21 07:25 07:25 WBC 5.6 (3.8-10.6) k/uL RBC 2.99 L (4.30-5.90) m/uL Hgb 9.6 L (13.0-17.5) gm/dL Hct 31.0 L (39.0-53.0) % MCV 103.6 H (80.0-100.0) fL MCH 32.2 (25.0-35.0) pg MCHC 31.1 (31.0-37.0) g/dL RDW 17.3 H (11.5-15.5) % Plt Count 152 (150-450) k/uL MPV 8.6 Neutrophils % 76 % Lymphocytes % 12 % Monocytes % 9 % Eosinophils % 2 % Basophils % 0 % Neutrophils # 4.2 (1.3-7.7) k/uL Lymphocytes # 0.7 L (1.0-4.8) k/uL Monocytes # 0.5 (0-1.0) k/uL Eosinophils # 0.1 (0-0.7) k/uL Basophils # 0.0 (0-0.2) k/uL Hypochromasia Marked Anisocytosis Slight Macrocytosis Moderate Sodium 128 L (137-145) mmol/L Potassium 6.2 H* (3.5-5.1) mmol/L Chloride 103 (98-107) mmol/L Carbon Dioxide <5 L* (22-30) mmol/L Anion Gap mmol/L BUN 74 H (9-20) mg/dL Creatinine 6.26 H (0.66-1.25) mg/dL Est GFR (CKD-EPI)AfAm 10 (>60 ml/min/1.73 sqM) Est GFR (CKD-EPI)NonAf 9 (>60 ml/min/1.73 sqM) Glucose 98 (74-99) mg/dL POC Glucose (mg/dL) 122 H (70-110) mg/dL POC Glu Hospital Scientist ID Sirisha Roper Lactic Ac Sepsis Rflx Plasma Lactic Acid Hernandez (0.7-2.0) mmol/L Calcium 7.4 L (8.4-10.2) mg/dL Magnesium 2.0 (1.6-2.3) mg/dL Total Bilirubin 0.6 (0.2-1.3) mg/dL AST 131 H (17-59) U/L ALT 74 H (4-49) U/L Alkaline Phosphatase 68 (38-126) U/L Total Protein 5.6 L (6.3-8.2) g/dL Albumin 3.6 (3.5-5.0) g/dL Serum Alcohol 95 mg/dL 04/03/24 04/03/24 04/03/24 Range/Units 07:25 08:10 08:25 WBC (3.8-10.6) k/uL RBC (4.30-5.90) m/uL Hgb (13.0-17.5) gm/dL Hct (39.0-53.0) % MCV (80.0-100.0) fL MCH (25.0-35.0) pg MCHC (31.0-37.0) g/dL RDW (11.5-15.5) % Plt Count (150-450) k/uL MPV Neutrophils % % Lymphocytes % % Monocytes % % Eosinophils % % Basophils % % Neutrophils # (1.3-7.7) k/uL Lymphocytes # (1.0-4.8) k/uL Monocytes # (0-1.0) k/uL Eosinophils # (0-0.7) k/uL Basophils # (0-0.2) k/uL Hypochromasia Anisocytosis Macrocytosis Sodium (137-145) mmol/L Potassium (3.5-5.1) mmol/L Chloride (98-107) mmol/L Carbon Dioxide (22-30) mmol/L Anion Gap mmol/L BUN (9-20) mg/dL Creatinine (0.66-1.25) mg/dL Est GFR (CKD-EPI)AfAm (>60 ml/min/1.73 sqM) Est GFR (CKD-EPI)NonAf (>60 ml/min/1.73 sqM) Glucose (74-99) mg/dL POC Glucose (mg/dL) 119 H (70-110) mg/dL POC Glu Hospital Scientist ID Devorah Valentino Lactic Ac Sepsis Rflx Y Plasma Lactic Acid Hernandez 2.2 H* (0.7-2.0) mmol/L Calcium (8.4-10.2) mg/dL Magnesium (1.6-2.3) mg/dL Total Bilirubin (0.2-1.3) mg/dL AST (17-59) U/L ALT (4-49) U/L Alkaline Phosphatase (38-126) U/L Total Protein (6.3-8.2) g/dL Albumin (3.5-5.0) g/dL Serum Alcohol mg/dL 04/03/24 04/03/24 Range/Units 08:44 09:30 WBC (3.8-10.6) k/uL RBC (4.30-5.90) m/uL Hgb (13.0-17.5) gm/dL Hct (39.0-53.0) % MCV (80.0-100.0) fL MCH (25.0-35.0) pg MCHC (31.0-37.0) g/dL RDW (11.5-15.5) % Plt Count (150-450) k/uL MPV Neutrophils % % Lymphocytes % % Monocytes % % Eosinophils % % Basophils % % Neutrophils # (1.3-7.7) k/uL Lymphocytes # (1.0-4.8) k/uL Monocytes # (0-1.0) k/uL Eosinophils # (0-0.7) k/uL Basophils # (0-0.2) k/uL Hypochromasia Anisocytosis Macrocytosis Sodium (137-145) mmol/L Potassium (3.5-5.1) mmol/L Chloride (98-107) mmol/L Carbon Dioxide (22-30) mmol/L Anion Gap mmol/L BUN (9-20) mg/dL Creatinine (0.66-1.25) mg/dL Est GFR (CKD-EPI)AfAm (>60 ml/min/1.73 sqM) Est GFR (CKD-EPI)NonAf (>60 ml/min/1.73 sqM) Glucose (74-99) mg/dL POC Glucose (mg/dL) 193 H 306 H (70-110) mg/dL POC Glu Hospital Scientist ID Devorah Valentino Cassandra Lactic Ac Sepsis Rflx Plasma Lactic Acid Hernandez (0.7-2.0) mmol/L Calcium (8.4-10.2) mg/dL Magnesium (1.6-2.3) mg/dL Total Bilirubin (0.2-1.3) mg/dL AST (17-59) U/L ALT (4-49) U/L Alkaline Phosphatase (38-126) U/L Total Protein (6.3-8.2) g/dL Albumin (3.5-5.0) g/dL Serum Alcohol mg/dL Disposition Clinical Impression: TOYA (acute kidney injury) Disposition: ADMITTED IP TO THIS HOSP Condition: Serious Referrals: Uziel Caro MD [Primary Care Provider] - 1-2 days Decision Time: 10:41
[2024-04-03 07:50] LABS: Anisocytosis Slight; Basophils % (A) 0 %; Eosinophils # (A) 0.1 k/uL (0-0.7); Eosinophils % (A) 2 %; HGB 9.6 gm/dL (13.0-17.5); Hypochromasia Marked; Lymphocytes # (A) 0.7 k/uL (1.0-4.8); Lymphocytes % (A) 12 %; MCH 32.2 pg (25.0-35.0); MCHC 31.1 g/dL (31.0-37.0); MCV 103.6 fL (80.0-100.0); Macrocytosis Moderate; Mean Platelet Volume 8.6; Monocytes # (A) 0.5 k/uL (0-1.0); Monocytes % (A) 9 %; Neutrophils # (A) 4.2 k/uL (1.3-7.7); Neutrophils % (A) 76 %; Platelet Count 152 k/uL (150-450); RBC 2.99 m/uL (4.30-5.90); RDW 17.3 % (11.5-15.5); WBC 5.6 k/uL (3.8-10.6)
[2024-04-03 07:56] LABS: ALT 74 U/L (4-49); AST 131 U/L (17-59); Albumin 3.6 g/dL (3.5-5.0); Alkaline Phosphatase 68 U/L (38-126); Blood Urea Nitrogen 74 mg/dL (9-20); Calcium 7.4 mg/dL (8.4-10.2); Chloride 103 mmol/L (98-107); Glucose 98 mg/dL (74-99); Sodium 128 mmol/L (137-145); Total Bilirubin 0.6 mg/dL (0.2-1.3); Total Protein 5.6 g/dL (6.3-8.2)
[2024-04-03 08:02] LABS: African American GFR (CKD) 10 (>60 ml/min/1.73 sqM); Non-African American GFR(CKD) 9 (>60 ml/min/1.73 sqM)
[2024-04-03 08:11] LABS: Glucose,Whole Blood 119 mg/dL (70-110)
[2024-04-03 08:32] LABS: Alcohol 95 mg/dL; Carbon Dioxide <5 mmol/L (22-30); Potassium 6.2 mmol/L (3.5-5.1)
[2024-04-03] MEDS: SODIUM CHLORIDE 0.9% 2,000 ML IV STA (08:43)
[2024-04-03 08:46] LABS: Glucose,Whole Blood 193 mg/dL (70-110)
[2024-04-03] MEDS: DEXTROSE 50% SYRINGE 50 ML IVP ONE (09:02)
[2024-04-03] MEDS: SODIUM BICARB 8.4% 50 ML SYR (1 MEQ/ML) IV STA (09:07)
[2024-04-03] MEDS: INSULIN REGULAR 100 UNIT/ML VIAL (IV) IV ONE (09:10)
[2024-04-03] MEDS: CALCIUM GLUCONATE IN NACL 1 GM in SALINE 1 100ML.BAG IVPB ONE (09:16)
[2024-04-03] MEDS: SODIUM ZIRCONIUM CYCLOSILICATE 10 GM PACKET PO ONE (09:17)
[2024-04-03 09:31] LABS: Glucose,Whole Blood 306 mg/dL (70-110)
[2024-04-03] MEDS: LORazepam 2 MG/ML INJ IV PRN (09:31)
[2024-04-03] MEDS: DEXTROSE 5% IN WATER 1,000 ML with SODIUM BICARB (1 MEQ/ML) 150 ML IV SCH (09:37)
[2024-04-03] MEDS: ALBUTEROL NEB (CONC) 2.5 MG/0.5 ML INHALATION ONE (09:56)
[2024-04-03 10:09] LABS: Anion Gap 15 mmol/L; Blood Urea Nitrogen 76 mg/dL (9-20); Calcium 7.2 mg/dL (8.4-10.2); Carbon Dioxide 10 mmol/L (22-30); Chloride 104 mmol/L (98-107); Glucose 209 mg/dL (74-99); Potassium 5.2 mmol/L (3.5-5.1); Sodium 129 mmol/L (137-145)
[2024-04-03 10:31] LABS: African American GFR (CKD) 12 (>60 ml/min/1.73 sqM); Non-African American GFR(CKD) 10 (>60 ml/min/1.73 sqM)
--- NOTE | 2024-04-03 10:35 | US ---
EXAMINATION TYPE: US kidneys/renal and bladder DATE OF EXAM: 04/03/2024 COMPARISON: Renal ultrasound 09/09/2024, CT chest abdomen pelvis 09/07/2023 CLINICAL INDICATION: Male, 58 years old with history of kalani; Stomach pain, nausea, and dry heaving EXAM MEASUREMENTS: Right Kidney: 12.3 x 6.3 x 5.7 cm Left Kidney: 11.6 x 6.5 x 5.2 cm Post Void Residual Volume: NA mL Right Kidney: WNL Left Kidney: Cysts redemonstrated Bladder: WNL Bilateral Jets seen: Yes Normal Post Void Residual: NA There is no evidence for hydronephrosis at this point in time. No nephrolithiasis is seen. No solid masses are identified. Stable left simple renal cysts measuring up to 4.6 cm. Corticomedullary diffe rentiation is maintained bilaterally. The urinary bladder is anechoic. Bilateral ureteral jets are s een. IMPRESSION: 1. No hydronephrosis or nephrolithiasis. 2. Redemonstration of left renal cysts.
[2024-04-03] MEDS ORDERED: NALOXONE 0.4 MG/ML 1 ML VIAL IV PRN (10:37)
[2024-04-03] MEDS: SODIUM CHLORIDE 0.9% 1,000 ML IV SCH (11:00)
--- NOTE | 2024-04-03 12:43 | P.NPCON ---
History of Present Illness - Reason for Consult Consult date: 04/03/24 - History of Present Illness Patient is a 58-year-old male who is being consulted for metabolic acidosis. He has a history of chronic kidney disease stage IIIb with previous creatinine 19.92 on 09/13/2023, hypertension, and alcoholism with severe withdrawals. Previous episodes of acute kidney injury in August with peak creatinine of 4.88. He presented to the ED this morning with reports of dizziness and sweating after heavily drinking the past few days and not eating. His creatinine on admission was 6.26. His creatinine on previous discharge on 09/13/2023 was 1.92. He is noted to have hyperkalemia (6.2), hyponatremia (128), and metabolic acidosis (carbon dioxide < 5). He is making urine. No hypotension noted. Admits to recent use of NSAIDs. Maintained on lisinopril and Jardiance at home. Blood sugar noted to be 122 on admission and increasing. Serum alcohol at 95. Stated last drink at 5am. Past Medical History Additional Past Medical History / Comment(s): Gout, History of Any Multi-Drug Resistant Organisms: None Reported Past Surgical History: No Surgical Hx Reported Past Anesthesia/Blood Transfusion Reactions: No Reported Reaction Past Psychological History: No Psychological Hx Reported Smoking Status: Current every day smoker Past Alcohol Use History: Abuse, Daily Past Drug Use History: Marijuana Medications and Allergies Home Medications Medication Instructions Recorded Confirmed Type Atorvastatin [Lipitor] 40 mg PO HS 09/07/23 04/03/24 History Omeprazole 20 mg PO DAILY 09/07/23 04/03/24 History allopurinoL [Zyloprim] 100 mg PO DAILY 09/07/23 04/03/24 History Magnesium Oxide [Mag-Ox] 400 mg PO DAILY #30 tab 09/13/23 04/03/24 Rx Cholecalciferol [Vitamin D3 (25 25 mcg PO DAILY 04/03/24 04/03/24 History Mcg = 1000 Iu)] Empagliflozin [Jardiance] 10 mg PO DIRECTED 04/03/24 04/03/24 History Ferrous Sulfate [Feosol] 325 mg PO DAILY 04/03/24 04/03/24 History Nicotine 14Mg/24Hr Patch [Habitrol 1 patch TRANSDERM DAILY PRN 04/03/24 04/03/24 History 14Mg/24Hr Patch] Nortriptyline [Pamelor] 10 mg PO HS PRN 04/03/24 04/03/24 History amLODIPine [Norvasc] 10 mg PO DAILY 04/03/24 04/03/24 History lisinopriL [Zestril] 10 mg PO DAILY 04/03/24 04/03/24 History Allergies Allergy/AdvReac Type Severity Reaction Status Date / Time No Known Allergies Allergy Verified 04/03/24 09:43 Physical Exam Vitals: Vital Signs Temp Pulse Resp BP Pulse Ox 04/03/24 11:00 109 H 18 108/62 95 04/03/24 10:14 106 H 04/03/24 10:00 96 18 141/71 100 04/03/24 09:59 103 H 04/03/24 09:45 88 22 140/71 97 04/03/24 07:14 98 F 88 18 114/51 100 Intake and Output 04/02/24 04/03/24 04/03/24 22:59 06:59 14:59 Other: Weight 68.946 kg Vital signs are stable. General: No acute distress. HEENT: Head exam is unremarkable; scleral icterus present. Lungs: Bilateral breath sounds present; no rhonchi, wheezes, or rales. Heart: Rate and rhythm are regular. Abdomen: Nontender. Extremities: No edema present. Results - Lab Results Most recent lab results Calcium 7.2 mg/dL (8.4-10.2) L 04/03/24 09:38 Magnesium 2.0 mg/dL (1.6-2.3) 04/03/24 07:25 04/04/24 08:07 04/04/24 08:07 Assessment and Plan Assessment: 1. Acute kidney injury. Secondary to volume depletion and NSAIDs. Rule out obstructive uropathy. Check UA. No hydronephrosis seen on ultrasound 04/03/2024. 2. Metabolic acidosis. Anion gap secondary to alcohol, acute kidney injury, rule out DKA. Toxic/ volatile alcohol screen sent out. 3. Hypovolemic hyponatremia. 4. Hyperkalemia. Secondary to acute kidney injury and metabolic acidosis. 1 dose of Lokelma given. Rule out urinary retention. Blood sugar elevated to 306, most likely contributing to hyperkalemia. 5. EtOH abuse. 6. Hypocalcemia. Corrected calcium 7.5. Rule out vitamin D deficiency. Plan: Continue IV sodium bicarb. Check UA. Check serum acetone. Rule out DKA. Check volatile alcohol screen. Bladder scan. Repeat labs in the morning. Check vitamin D. Thank you for the consultation. We will continue to follow with you. Agree with residents findings, assessment and plan.
[2024-04-03 13:10] LABS: African American GFR (CKD) 12 (>60 ml/min/1.73 sqM); Anion Gap 12 mmol/L; Blood Urea Nitrogen 74 mg/dL (9-20); Calcium 7.2 mg/dL (8.4-10.2); Carbon Dioxide 12 mmol/L (22-30); Chloride 104 mmol/L (98-107); Glucose 235 mg/dL (74-99); Non-African American GFR(CKD) 11 (>60 ml/min/1.73 sqM); Potassium 4.5 mmol/L (3.5-5.1); Sodium 128 mmol/L (137-145)
[2024-04-03 13:11] LABS: Salicylate <1.0 mg/dL
[2024-04-03 14:11] LABS: Appearance,Urine Clear (Clear); Bilirubin,Urine Negative (Negative); Blood,Urine Trace (Negative); Color,Urine Colorless; Glucose,Urine (UA) Negative (Negative); Hyaline Casts,Urine 3 /lpf (0-2); Ketones,Urine Negative (Negative); Leukocyte Esterase,Urine Negative (Negative); Mucus,Urine Rare /hpf; Nitrite,Urine Negative (Negative); PH, Urine 5.5 (5.0-8.0); Protein,Urine 1+ (Negative); RBC,Urine <1 /hpf (0-5); Specific Gravity,Urine 1.009 (1.001-1.035); Squamous Epithelial Cell,Urine <1 /hpf (0-4); Urobilinogen,Urine <2.0 mg/dL (<2.0)
[2024-04-03] MEDS ORDERED: NICOTINE 14MG/24HR PATCH TRANSDERM PRN (14:18)
--- NOTE | 2024-04-03 14:33 | P.HPIM ---
History of Present Illness H&P Date: 04/03/24 History of present illness; patient is 58-year-old gentleman with past medical his significant for hypertension, hyperlipidemia, diabetes mellitus who presented to the ER because of not feeling well and feeling dizzy. Patient admits to drinking large amounts of alcohol daily. Patient stated that has been not been feeling his usual self for the last few days. Patient states that he has been drinking a lot and has not been eating enough. Patient was complaining of dizziness. There was no complaint of passing out. There was no complaint nausea, vomiting or abdominal pain. There was no current fever or chills at home. Patient denies any diarrhea. Because of the symptoms, patient came to the ER Initial lab work done in the ER showed WBC 5.6, hemoglobin 9.6, platelet count 152, sodium 138, potassium 6.2, carbon oxide 5, BUN 74, creatinine zero 6.26 glucose 122, lactate 2.2, calcium 7.4, AST 131, ALT 74 EKG done in the ER showed heart rate of 82, no ST segment elevation or depression seen, no T-wave inversions seen. Patient admitted to internal medicine service REVIEW OF SYSTEMS: CONSTITUTIONAL: As mentioned above HEENT: No recent visual problems or hearing problems. Denied any sore throat. CARDIOVASCULAR: No chest pain, orthopnea, PND, no palpitations, no syncope. PULMONARY: No shortness of breath, no cough, no hemoptysis. GASTROINTESTINAL: As mentioned above NEUROLOGICAL: No headaches, no weakness, no numbness. HEMATOLOGICAL: Denies any bleeding or petechiae. GENITOURINARY: Denies any burning micturition, frequency, or urgency. MUSCULOSKELETAL/RHEUMATOLOGICAL: Denies any joint pain, swelling, or any muscle pain. ENDOCRINE: Denies any polyuria or polydipsia. The rest of the 14-point review of systems is negative. PHYSICAL EXAMINATION: GENERAL: The patient is alert and oriented x3, not in any acute distress. Well developed, well nourished. HEENT: Pupils are round and equally reacting to light. EOMI. No scleral icterus. No conjunctival pallor. Normocephalic, atraumatic. No pharyngeal erythema. No thyromegaly. CARDIOVASCULAR: S1 and S2 present. No murmurs, rubs, or gallops. PULMONARY: Chest is clear to auscultation, no wheezing or crackles. ABDOMEN: Soft, nontender, nondistended, normoactive bowel sounds. No palpable organomegaly. MUSCULOSKELETAL: No joint swelling or deformity. EXTREMITIES: No cyanosis, clubbing, or pedal edema. NEUROLOGICAL: Gross neurological examination did not reveal any focal deficits. SKIN: No rashes. Assessment and plan Hyponatremia Acute kidney injury Hyperkalemia Metabolic acidosis Lactic acidosis Hypertension Hyperlipidemia Monitor vital signs Monitor CBC Monitor CMP Continue telemetry monitoring Ordered CPK Ordered serum acetone Ordered urine drug screen Avoid nephrotoxic agent Ordered ultrasound of kidneys Ordered CIWA protocol Ordered high-dose thiamine and folic acid Continue IV fluids Consult nephrology Labs and medication were reviewed.. Continue same treatment. Continue with symptomatic treatment. Resume home medication. Moniytor labs and vitals. DVT and GI prophylaxis. Further recommendations as per clinical course of the patient Dictation was produced using [employer] dictation software. please excuse any grammatical, word or spelling errors. Past Medical History Additional Past Medical History / Comment(s): Gout, History of Any Multi-Drug Resistant Organisms: None Reported Past Surgical History: No Surgical Hx Reported Past Anesthesia/Blood Transfusion Reactions: No Reported Reaction Past Psychological History: No Psychological Hx Reported Smoking Status: Current every day smoker Past Alcohol Use History: Abuse, Daily Past Drug Use History: Marijuana Medications and Allergies Home Medications Medication Instructions Recorded Confirmed Type Atorvastatin [Lipitor] 40 mg PO HS 09/07/23 04/03/24 History Omeprazole 20 mg PO DAILY 09/07/23 04/03/24 History allopurinoL [Zyloprim] 100 mg PO DAILY 09/07/23 04/03/24 History Magnesium Oxide [Mag-Ox] 400 mg PO DAILY #30 tab 09/13/23 04/03/24 Rx Cholecalciferol [Vitamin D3 (25 25 mcg PO DAILY 04/03/24 04/03/24 History Mcg = 1000 Iu)] Empagliflozin [Jardiance] 10 mg PO DIRECTED 04/03/24 04/03/24 History Ferrous Sulfate [Feosol] 325 mg PO DAILY 04/03/24 04/03/24 History Nicotine 14Mg/24Hr Patch [Habitrol 1 patch TRANSDERM DAILY PRN 04/03/24 04/03/24 History 14Mg/24Hr Patch] Nortriptyline [Pamelor] 10 mg PO HS PRN 04/03/24 04/03/24 History amLODIPine [Norvasc] 10 mg PO DAILY 04/03/24 04/03/24 History lisinopriL [Zestril] 10 mg PO DAILY 04/03/24 04/03/24 History Allergies Allergy/AdvReac Type Severity Reaction Status Date / Time No Known Allergies Allergy Verified 04/03/24 09:43 Physical Exam Vitals: Vital Signs Temp Pulse Resp BP Pulse Ox 04/03/24 13:15 106 H 16 130/73 95 04/03/24 11:00 109 H 18 108/62 95 04/03/24 10:14 106 H 04/03/24 10:00 96 18 141/71 100 04/03/24 09:59 103 H 04/03/24 09:45 88 22 140/71 97 04/03/24 07:14 98 F 88 18 114/51 100 Intake and Output 04/02/24 04/03/24 04/03/24 22:59 06:59 14:59 Output Total 174 Balance -174 Output: Post Void Residual 174 Other: Weight 68.946 kg Results CBC & Chem 7: 04/03/24 07:25 04/03/24 12:43 Labs: Abnormal Lab Results - Last 24 Hours (Table) 04/03/24 04/03/24 04/03/24 Range/Units 07:21 07:25 07:25 RBC 2.99 L (4.30-5.90) m/uL Hgb 9.6 L (13.0-17.5) gm/dL Hct 31.0 L (39.0-53.0) % MCV 103.6 H (80.0-100.0) fL RDW 17.3 H (11.5-15.5) % Lymphocytes # 0.7 L (1.0-4.8) k/uL Sodium 128 L (137-145) mmol/L Potassium 6.2 H* (3.5-5.1) mmol/L Carbon Dioxide <5 L* (22-30) mmol/L BUN 74 H (9-20) mg/dL Creatinine 6.26 H (0.66-1.25) mg/dL Glucose (74-99) mg/dL POC Glucose (mg/dL) 122 H (70-110) mg/dL Plasma Lactic Acid Hernandez (0.7-2.0) mmol/L Calcium 7.4 L (8.4-10.2) mg/dL AST 131 H (17-59) U/L ALT 74 H (4-49) U/L Total Protein 5.6 L (6.3-8.2) g/dL Urine Protein (Negative) Urine Blood (Negative) Hyaline Casts (0-2) /lpf Urine Mucus (None) /hpf 04/03/24 04/03/24 04/03/24 Range/Units 07:25 08:10 08:44 RBC (4.30-5.90) m/uL Hgb (13.0-17.5) gm/dL Hct (39.0-53.0) % MCV (80.0-100.0) fL RDW (11.5-15.5) % Lymphocytes # (1.0-4.8) k/uL Sodium (137-145) mmol/L Potassium (3.5-5.1) mmol/L Carbon Dioxide (22-30) mmol/L BUN (9-20) mg/dL Creatinine (0.66-1.25) mg/dL Glucose (74-99) mg/dL POC Glucose (mg/dL) 119 H 193 H (70-110) mg/dL Plasma Lactic Acid Hernandez 2.2 H* (0.7-2.0) mmol/L Calcium (8.4-10.2) mg/dL AST (17-59) U/L ALT (4-49) U/L Total Protein (6.3-8.2) g/dL Urine Protein (Negative) Urine Blood (Negative) Hyaline Casts (0-2) /lpf Urine Mucus (None) /hpf 04/03/24 04/03/24 04/03/24 Range/Units 09:30 09:38 11:42 RBC (4.30-5.90) m/uL Hgb (13.0-17.5) gm/dL Hct (39.0-53.0) % MCV (80.0-100.0) fL RDW (11.5-15.5) % Lymphocytes # (1.0-4.8) k/uL Sodium 129 L (137-145) mmol/L Potassium 5.2 H (3.5-5.1) mmol/L Carbon Dioxide 10 L (22-30) mmol/L BUN 76 H (9-20) mg/dL Creatinine 5.51 H (0.66-1.25) mg/dL Glucose 209 H (74-99) mg/dL POC Glucose (mg/dL) 306 H (70-110) mg/dL Plasma Lactic Acid Hernandez 2.3 H* (0.7-2.0) mmol/L Calcium 7.2 L (8.4-10.2) mg/dL AST (17-59) U/L ALT (4-49) U/L Total Protein (6.3-8.2) g/dL Urine Protein (Negative) Urine Blood (Negative) Hyaline Casts (0-2) /lpf Urine Mucus (None) /hpf 04/03/24 04/03/24 Range/Units 12:43 13:40 RBC (4.30-5.90) m/uL Hgb (13.0-17.5) gm/dL Hct (39.0-53.0) % MCV (80.0-100.0) fL RDW (11.5-15.5) % Lymphocytes # (1.0-4.8) k/uL Sodium 128 L (137-145) mmol/L Potassium (3.5-5.1) mmol/L Carbon Dioxide 12 L (22-30) mmol/L BUN 74 H (9-20) mg/dL Creatinine 5.40 H (0.66-1.25) mg/dL Glucose 235 H (74-99) mg/dL POC Glucose (mg/dL) (70-110) mg/dL Plasma Lactic Acid Hernandez (0.7-2.0) mmol/L Calcium 7.2 L (8.4-10.2) mg/dL AST (17-59) U/L ALT (4-49) U/L Total Protein (6.3-8.2) g/dL Urine Protein 1+ H (Negative) Urine Blood Trace H (Negative) Hyaline Casts 3 H (0-2) /lpf Urine Mucus Rare H (None) /hpf
[2024-04-03 15:49] LABS: Amphetamine Screen,Urine Not Detected (NotDetected); Barbiturate Screen,Urine Not Detected (NotDetected); Benzodiazepines Screen,Urine Not Detected (NotDetected); Cocaine Screen,Urine Not Detected (NotDetected); Methadone Screen, Urine Not Detected (NotDetected); Opiate Screen,Urine Not Detected (NotDetected); Oxycodone Screen, Urine Not Detected (NotDetected); Phencyclidine Screen,Urine Not Detected (NotDetected); Tricyclic Antidepressant,Urine Not Detected (NotDetected); Urn Cannabinoid Scrn Not Detected (NotDetected)
[2024-04-03 16:36] LABS: Glucose,Whole Blood 288 mg/dL (70-110)
[2024-04-03 20:02] LABS: Glucose,Whole Blood 202 mg/dL (70-110)
[2024-04-03] MEDS: ATORVASTATIN 40 MG TAB PO SCH (20:11)
[2024-04-03] MEDS: INSULIN ASPART (NovoLOG) 100 UNIT/ML VIAL SQ SCH (20:40)
[2024-04-04] MEDS: ACETAMINOPHEN TAB 325 MG TAB PO PRN (03:31)
[2024-04-04 05:49] LABS: Glucose,Whole Blood 182 mg/dL (70-110)
[2024-04-04] MEDS: FERROUS SULFATE 325 MG TAB PO SCH (08:14)
[2024-04-04] MEDS: PANTOPRAZOLE 40 MG TABLET PO SCH (08:14)
[2024-04-04 08:34] LABS: Anisocytosis Slight; HCT 27.1 % (39.0-53.0); HGB 8.9 gm/dL (13.0-17.5); Hypochromasia Slight; MCH 33.3 pg (25.0-35.0); MCHC 32.9 g/dL (31.0-37.0); MCV 101.4 fL (80.0-100.0); Macrocytosis Moderate; Mean Platelet Volume 9.7; Platelet Count 111 k/uL (150-450); RBC 2.68 m/uL (4.30-5.90); RDW 17.8 % (11.5-15.5); WBC 5.6 k/uL (3.8-10.6)
[2024-04-04 08:47] LABS: ALT 55 U/L (4-49); AST 105 U/L (17-59); African American GFR (CKD) 28 (>60 ml/min/1.73 sqM); Albumin 2.8 g/dL (3.5-5.0); Alkaline Phosphatase 71 U/L (38-126); Anion Gap 6 mmol/L; Blood Urea Nitrogen 65 mg/dL (9-20); Calcium 7.7 mg/dL (8.4-10.2); Carbon Dioxide 23 mmol/L (22-30); Chloride 107 mmol/L (98-107); Glucose 122 mg/dL (74-99); Non-African American GFR(CKD) 24 (>60 ml/min/1.73 sqM); Potassium 3.4 mmol/L (3.5-5.1); Sodium 136 mmol/L (137-145); Total Bilirubin 0.9 mg/dL (0.2-1.3); Total Protein 4.8 g/dL (6.3-8.2)
[2024-04-04 11:14] LABS: Ethanol Negative (Negative); Isopropanol Negative (Negative)
[2024-04-04 11:38] LABS: Glucose,Whole Blood 135 mg/dL (70-110)
--- NOTE | 2024-04-04 12:03 | P.PN ---
Subjective patient is seen for follow-up for acute kidney injury and metabolic acidosis. Currently maintained on bicarb drip. Acidosis has improved with improvement in renal function as well. Serum creatinine is down to 2.7 today. No significant complaints today. Tolerating oral intake. Objective - Vital Signs Vital signs: Vital Signs Temp 99.9 F H 04/04/24 08:10 Pulse 115 H 04/04/24 08:10 Resp 16 04/04/24 08:10 BP 159/84 04/04/24 08:10 Pulse Ox 97 04/04/24 08:10 FiO2 Intake & Output 04/03/24 04/04/24 04/04/24 18:59 06:59 18:59 Intake Total 100 Output Total 174 1 Balance -174 99 Weight 68.946 kg 74.5 kg Intake: Oral 100 Output: Post Void Residual 174 Urine/Stool Mix 1 Other: Voiding Method Bedside Commode Bedside Commode Bedside Commode Urinal Urinal Urinal # Voids 1 3 # Bowel Movements 1 3 - Exam patient is awake, comfortable, no acute distress. Examination of the heart S1 and S2 Examination of the lungs bilateral breath sounds are heard Abdomen is soft nontender Examination of lower extremity shows no significant edema HAMMERER exam grossly intact No tremors noted. - Labs CBC & Chem 7: 04/04/24 08:07 04/04/24 08:07 Labs: Abnormal Lab Results - Last 24 Hours (Table) 04/03/24 04/03/24 04/03/24 Range/Units 09:38 11:42 12:42 RBC (4.30-5.90) m/uL Hgb (13.0-17.5) gm/dL Hct (39.0-53.0) % MCV (80.0-100.0) fL RDW (11.5-15.5) % Plt Count (150-450) k/uL Sodium (137-145) mmol/L Potassium (3.5-5.1) mmol/L Carbon Dioxide (22-30) mmol/L BUN (9-20) mg/dL Creatinine (0.66-1.25) mg/dL Glucose (74-99) mg/dL POC Glucose (mg/dL) (70-110) mg/dL Osmolality 319 H (275-295) mOsm/kg Plasma Lactic Acid Hernandez 2.3 H* (0.7-2.0) mmol/L Calcium (8.4-10.2) mg/dL AST (17-59) U/L ALT (4-49) U/L Total Protein (6.3-8.2) g/dL Albumin (3.5-5.0) g/dL Vitamin D 25-Hydroxy 16.6 L (30.0-100.0) ng/mL Urine Protein (Negative) Urine Blood (Negative) Hyaline Casts (0-2) /lpf Urine Mucus (None) /hpf 04/03/24 04/03/24 04/03/24 Range/Units 12:43 13:40 14:51 RBC (4.30-5.90) m/uL Hgb (13.0-17.5) gm/dL Hct (39.0-53.0) % MCV (80.0-100.0) fL RDW (11.5-15.5) % Plt Count (150-450) k/uL Sodium 128 L (137-145) mmol/L Potassium (3.5-5.1) mmol/L Carbon Dioxide 12 L (22-30) mmol/L BUN 74 H (9-20) mg/dL Creatinine 5.40 H (0.66-1.25) mg/dL Glucose 235 H (74-99) mg/dL POC Glucose (mg/dL) (70-110) mg/dL Osmolality (275-295) mOsm/kg Plasma Lactic Acid Hernandez 3.7 H* (0.7-2.0) mmol/L Calcium 7.2 L (8.4-10.2) mg/dL AST (17-59) U/L ALT (4-49) U/L Total Protein (6.3-8.2) g/dL Albumin (3.5-5.0) g/dL Vitamin D 25-Hydroxy (30.0-100.0) ng/mL Urine Protein 1+ H (Negative) Urine Blood Trace H (Negative) Hyaline Casts 3 H (0-2) /lpf Urine Mucus Rare H (None) /hpf 04/03/24 04/03/24 04/03/24 Range/Units 16:34 19:26 20:01 RBC (4.30-5.90) m/uL Hgb (13.0-17.5) gm/dL Hct (39.0-53.0) % MCV (80.0-100.0) fL RDW (11.5-15.5) % Plt Count (150-450) k/uL Sodium (137-145) mmol/L Potassium (3.5-5.1) mmol/L Carbon Dioxide (22-30) mmol/L BUN (9-20) mg/dL Creatinine (0.66-1.25) mg/dL Glucose (74-99) mg/dL POC Glucose (mg/dL) 288 H 202 H (70-110) mg/dL Osmolality (275-295) mOsm/kg Plasma Lactic Acid Hernandez 3.6 H* (0.7-2.0) mmol/L Calcium (8.4-10.2) mg/dL AST (17-59) U/L ALT (4-49) U/L Total Protein (6.3-8.2) g/dL Albumin (3.5-5.0) g/dL Vitamin D 25-Hydroxy (30.0-100.0) ng/mL Urine Protein (Negative) Urine Blood (Negative) Hyaline Casts (0-2) /lpf Urine Mucus (None) /hpf 04/04/24 04/04/24 04/04/24 Range/Units 05:48 08:07 08:07 RBC 2.68 L (4.30-5.90) m/uL Hgb 8.9 L (13.0-17.5) gm/dL Hct 27.1 L (39.0-53.0) % MCV 101.4 H (80.0-100.0) fL RDW 17.8 H (11.5-15.5) % Plt Count 111 L (150-450) k/uL Sodium 136 L (137-145) mmol/L Potassium 3.4 L (3.5-5.1) mmol/L Carbon Dioxide (22-30) mmol/L BUN 65 H (9-20) mg/dL Creatinine 2.71 H (0.66-1.25) mg/dL Glucose 122 H (74-99) mg/dL POC Glucose (mg/dL) 182 H (70-110) mg/dL Osmolality (275-295) mOsm/kg Plasma Lactic Acid Hernandez (0.7-2.0) mmol/L Calcium 7.7 L (8.4-10.2) mg/dL AST 105 H (17-59) U/L ALT 55 H (4-49) U/L Total Protein 4.8 L (6.3-8.2) g/dL Albumin 2.8 L (3.5-5.0) g/dL Vitamin D 25-Hydroxy (30.0-100.0) ng/mL Urine Protein (Negative) Urine Blood (Negative) Hyaline Casts (0-2) /lpf Urine Mucus (None) /hpf 04/04/24 Range/Units 11:33 RBC (4.30-5.90) m/uL Hgb (13.0-17.5) gm/dL Hct (39.0-53.0) % MCV (80.0-100.0) fL RDW (11.5-15.5) % Plt Count (150-450) k/uL Sodium (137-145) mmol/L Potassium (3.5-5.1) mmol/L Carbon Dioxide (22-30) mmol/L BUN (9-20) mg/dL Creatinine (0.66-1.25) mg/dL Glucose (74-99) mg/dL POC Glucose (mg/dL) 135 H (70-110) mg/dL Osmolality (275-295) mOsm/kg Plasma Lactic Acid Hernandez (0.7-2.0) mmol/L Calcium (8.4-10.2) mg/dL AST (17-59) U/L ALT (4-49) U/L Total Protein (6.3-8.2) g/dL Albumin (3.5-5.0) g/dL Vitamin D 25-Hydroxy (30.0-100.0) ng/mL Urine Protein (Negative) Urine Blood (Negative) Hyaline Casts (0-2) /lpf Urine Mucus (None) /hpf Assessment and Plan Assessment: 1. Acute kidney injury. Secondary to volume depletion and NSAIDs. improving. UA shows 1+ protein and trace blood. No hydronephrosis seen on ultrasound 04/03/2024. 2. Metabolic acidosis. Anion gap secondary to alcohol, acute kidney injury, rule out DKA. Toxic/ volatile alcohol screen sent out. 3. Hypovolemic hyponatremia. improved. 4. Hyperkalemia. Secondary to acute kidney injury and metabolic acidosis. 1 dose of Lokelma given. Rule out urinary retention. Blood sugar elevated to 306, most likely contributing to hyperkalemia. 5. EtOH abuse. 6. Hypocalcemia. Corrected calcium 7.5. Nutritional vitamin D deficiency noted Plan: Continue IV sodium bicarb. start vitamin D supplementation Repeat labs in a.m. Replace potassium
[2024-04-04] MEDS ORDERED: DEXTROSE 50% SYRINGE 50 ML IVP PRN ×2 (13:05)
--- NOTE | 2024-04-04 13:06 | P.PN ---
Subjective Progress Note Date: 04/04/24 patient is 58-year-old gentleman with past medical his significant for hypertension, hyperlipidemia, diabetes mellitus who presented to the ER because of not feeling well and feeling dizzy. Patient admits to drinking large amounts of alcohol daily. Patient stated that has been not been feeling his usual self for the last few days. Patient states that he has been drinking a lot and has not been eating enough. Patient was complaining of dizziness. There was no complaint of passing out. There was no complaint nausea, vomiting or abdominal pain. There was no current fever or chills at home. Patient denies any diarrhea. Because of the symptoms, patient came to the ER Initial lab work done in the ER showed WBC 5.6, hemoglobin 9.6, platelet count 152, sodium 138, potassium 6.2, carbon oxide 5, BUN 74, creatinine zero 6.26 glucose 122, lactate 2.2, calcium 7.4, AST 131, ALT 74 EKG done in the ER showed heart rate of 82, no ST segment elevation or depression seen, no T-wave inversions seen. Patient admitted to internal medicine service 04/04. Patient seen and examined. Blood work this morning showed WBC 5.6, hemoglobin 8.9, sodium 100, potassium 3.4, BUN 65, creatinine 2.71 REVIEW OF SYSTEMS: CONSTITUTIONAL: No fever, no malaise,. CARDIOVASCULAR: No chest pain, no palpitations, no syncope. PULMONARY: No shortness of breath, no cough, GASTROINTESTINAL: No diarrhea, no nausea, no vomiting, no abdominal pain. NEUROLOGICAL: No headaches, no weakness, PHYSICAL EXAMINATION: GENERAL: The patient is alert and oriented x3, not in any acute distress. Well developed, well nourished. HEENT: Pupils are round and equally reacting to light. EOMI. No scleral icterus. No conjunctival pallor. Normocephalic, atraumatic. No pharyngeal erythema. No thyromegaly. CARDIOVASCULAR: S1 and S2 present. No murmurs, rubs, or gallops. PULMONARY: Chest is clear to auscultation, no wheezing or crackles. ABDOMEN: Soft, nontender, nondistended, normoactive bowel sounds. No palpable organomegaly. MUSCULOSKELETAL: No joint swelling or deformity. EXTREMITIES: No cyanosis, clubbing, or pedal edema. NEUROLOGICAL: Gross neurological examination did not reveal any focal deficits. SKIN: No rashes. Assessment and plan Hyponatremia Acute kidney injury Hyperkalemia Metabolic acidosis Lactic acidosis Hypertension Hyperlipidemia Acute transaminitis Monitor vital signs Monitor CBC Monitor CMP Continue telemetry monitoring Avoid nephrotoxic agents Avoid hypotension Continue CIWA protocol Hold statins because of acute transaminitis Continue bicarb drip Nephrology following Labs and medication were reviewed.. Continue same treatment. Continue with symptomatic treatment. Resume home medication. Monitor labs and vitals. DVT and GI prophylaxis. Further recommendations as per clinical course of the patient Dictation was produced using [employer] dictation software. please excuse any grammatical, word or spelling errors. Objective - Vital Signs Vital signs: Vital Signs Temp 99.5 F 04/04/24 03:00 Pulse 104 H 04/04/24 03:00 Resp 17 04/04/24 03:00 BP 144/81 04/04/24 03:00 Pulse Ox 93 L 04/04/24 03:00 FiO2 Intake & Output 04/03/24 04/04/24 04/04/24 18:59 06:59 18:59 Output Total 174 Balance -174 Weight 68.946 kg 74.5 kg Output: Post Void Residual 174 Other: Voiding Method Bedside Commode Bedside Commode Urinal Urinal # Voids 1 3 # Bowel Movements 1 3 - Labs CBC & Chem 7: 04/04/24 08:07 04/04/24 08:07 Labs: Abnormal Lab Results - Last 24 Hours (Table) 04/03/24 04/03/24 04/03/24 Range/Units 09:38 11:42 12:42 RBC (4.30-5.90) m/uL Hgb (13.0-17.5) gm/dL Hct (39.0-53.0) % MCV (80.0-100.0) fL RDW (11.5-15.5) % Plt Count (150-450) k/uL Sodium 129 L (137-145) mmol/L Potassium 5.2 H (3.5-5.1) mmol/L Carbon Dioxide 10 L (22-30) mmol/L BUN 76 H (9-20) mg/dL Creatinine 5.51 H (0.66-1.25) mg/dL Glucose 209 H (74-99) mg/dL POC Glucose (mg/dL) (70-110) mg/dL Osmolality 319 H (275-295) mOsm/kg Plasma Lactic Acid Hernandez 2.3 H* (0.7-2.0) mmol/L Calcium 7.2 L (8.4-10.2) mg/dL AST (17-59) U/L ALT (4-49) U/L Total Protein (6.3-8.2) g/dL Albumin (3.5-5.0) g/dL Vitamin D 25-Hydroxy 16.6 L (30.0-100.0) ng/mL Urine Protein (Negative) Urine Blood (Negative) Hyaline Casts (0-2) /lpf Urine Mucus (None) /hpf 04/03/24 04/03/24 04/03/24 Range/Units 12:43 13:40 14:51 RBC (4.30-5.90) m/uL Hgb (13.0-17.5) gm/dL Hct (39.0-53.0) % MCV (80.0-100.0) fL RDW (11.5-15.5) % Plt Count (150-450) k/uL Sodium 128 L (137-145) mmol/L Potassium (3.5-5.1) mmol/L Carbon Dioxide 12 L (22-30) mmol/L BUN 74 H (9-20) mg/dL Creatinine 5.40 H (0.66-1.25) mg/dL Glucose 235 H (74-99) mg/dL POC Glucose (mg/dL) (70-110) mg/dL Osmolality (275-295) mOsm/kg Plasma Lactic Acid Hernandez 3.7 H* (0.7-2.0) mmol/L Calcium 7.2 L (8.4-10.2) mg/dL AST (17-59) U/L ALT (4-49) U/L Total Protein (6.3-8.2) g/dL Albumin (3.5-5.0) g/dL Vitamin D 25-Hydroxy (30.0-100.0) ng/mL Urine Protein 1+ H (Negative) Urine Blood Trace H (Negative) Hyaline Casts 3 H (0-2) /lpf Urine Mucus Rare H (None) /hpf 04/03/24 04/03/24 04/03/24 Range/Units 16:34 19:26 20:01 RBC (4.30-5.90) m/uL Hgb (13.0-17.5) gm/dL Hct (39.0-53.0) % MCV (80.0-100.0) fL RDW (11.5-15.5) % Plt Count (150-450) k/uL Sodium (137-145) mmol/L Potassium (3.5-5.1) mmol/L Carbon Dioxide (22-30) mmol/L BUN (9-20) mg/dL Creatinine (0.66-1.25) mg/dL Glucose (74-99) mg/dL POC Glucose (mg/dL) 288 H 202 H (70-110) mg/dL Osmolality (275-295) mOsm/kg Plasma Lactic Acid Hernandez 3.6 H* (0.7-2.0) mmol/L Calcium (8.4-10.2) mg/dL AST (17-59) U/L ALT (4-49) U/L Total Protein (6.3-8.2) g/dL Albumin (3.5-5.0) g/dL Vitamin D 25-Hydroxy (30.0-100.0) ng/mL Urine Protein (Negative) Urine Blood (Negative) Hyaline Casts (0-2) /lpf Urine Mucus (None) /hpf 04/04/24 04/04/24 04/04/24 Range/Units 05:48 08:07 08:07 RBC 2.68 L (4.30-5.90) m/uL Hgb 8.9 L (13.0-17.5) gm/dL Hct 27.1 L (39.0-53.0) % MCV 101.4 H (80.0-100.0) fL RDW 17.8 H (11.5-15.5) % Plt Count 111 L (150-450) k/uL Sodium 136 L (137-145) mmol/L Potassium 3.4 L (3.5-5.1) mmol/L Carbon Dioxide (22-30) mmol/L BUN 65 H (9-20) mg/dL Creatinine 2.71 H (0.66-1.25) mg/dL Glucose 122 H (74-99) mg/dL POC Glucose (mg/dL) 182 H (70-110) mg/dL Osmolality (275-295) mOsm/kg Plasma Lactic Acid Hernandez (0.7-2.0) mmol/L Calcium 7.7 L (8.4-10.2) mg/dL AST 105 H (17-59) U/L ALT 55 H (4-49) U/L Total Protein 4.8 L (6.3-8.2) g/dL Albumin 2.8 L (3.5-5.0) g/dL Vitamin D 25-Hydroxy (30.0-100.0) ng/mL Urine Protein (Negative) Urine Blood (Negative) Hyaline Casts (0-2) /lpf Urine Mucus (None) /hpf
[2024-04-04] MEDS: POTASSIUM CHLORIDE ER 20 MEQ TAB.ER PO SCH (15:58)
[2024-04-04] MEDS: ERGOCALCIFEROL 1,250 MCG (50,000 IU) CAPSULE PO SCH (15:58)
[2024-04-04 16:30] LABS: Glucose,Whole Blood 200 mg/dL (70-110)
[2024-04-04 20:02] LABS: Glucose,Whole Blood 151 mg/dL (70-110)
[2024-04-04] MEDS: INSULIN DETEMIR (LEVEMIR) 100 UNIT/ML SYR SQ SCH (20:50)
[2024-04-05] MEDS: SODIUM CHLORIDE 0.9% 1,000 ML IV ONE (05:30)
[2024-04-05] MEDS: ADENOSINE 3 MG/ML 2 ML VIAL IVP ONE ×3 (05:47)
[2024-04-05 06:07] LABS: Glucose,Whole Blood 81 mg/dL (70-110)
[2024-04-05 06:55] LABS: Anisocytosis Slight; Basophils % (A) 0 %; Eosinophils # (A) 0.1 k/uL (0-0.7); Eosinophils % (A) 1 %; HGB 8.7 gm/dL (13.0-17.5); Hypochromasia Slight; Lymphocytes # (A) 0.7 k/uL (1.0-4.8); Lymphocytes % (A) 13 %; MCH 32.3 pg (25.0-35.0); MCHC 32.1 g/dL (31.0-37.0); MCV 100.6 fL (80.0-100.0); Macrocytosis Slight; Mean Platelet Volume 8.9; Monocytes # (A) 0.5 k/uL (0-1.0); Monocytes % (A) 9 %; Neutrophils % (A) 74 %; Platelet Count 115 k/uL (150-450); RBC 2.68 m/uL (4.30-5.90); RDW 17.5 % (11.5-15.5); WBC 5.3 k/uL (3.8-10.6)
[2024-04-05 07:08] LABS: ALT 51 U/L (4-49); AST 84 U/L (17-59); African American GFR (CKD) 48 (>60 ml/min/1.73 sqM); Albumin 2.7 g/dL (3.5-5.0); Alkaline Phosphatase 65 U/L (38-126); Anion Gap 1 mmol/L; Blood Urea Nitrogen 50 mg/dL (9-20); Calcium 7.7 mg/dL (8.4-10.2); Carbon Dioxide 33 mmol/L (22-30); Chloride 105 mmol/L (98-107); Glucose 65 mg/dL (74-99); Non-African American GFR(CKD) 41 (>60 ml/min/1.73 sqM); Potassium 3.9 mmol/L (3.5-5.1); Sodium 139 mmol/L (137-145); Total Bilirubin 0.8 mg/dL (0.2-1.3); Total Protein 4.8 g/dL (6.3-8.2)
[2024-04-05] MEDS: MAGNESIUM SULFATE-D5W PMX 1 GM in DEXTROSE/WATER 1 100ML.BAG IVPB SCH (08:13)
[2024-04-05 11:24] LABS: Glucose,Whole Blood 109 mg/dL (70-110)
[2024-04-05] MEDS: carvediloL 6.25 MG TAB PO SCH (11:35)
[2024-04-05] MEDS: HEPARIN SODIUM 1,000 UN/ML (10ML VL) IV ONE (11:35)
[2024-04-05] MEDS: HEPARIN SOD,PORK IN 0.45% NACL 25,000 UNIT in 0.45% NACL 1 250ML.BAG IV SCH (11:35)
--- NOTE | 2024-04-05 11:54 | P.CRDCN ---
History of Present Illness History of present illness: HISTORY OF PRESENT ILLNESS: This is a 58-year-old male with a past medical history significant for hypertension, hyperlipidemia, nicotine dependence, and alcohol abuse. 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 We have been asked to see the patient in consultation for SVT. Patient examined at the bedside. Patient initially presented to the hospital due to a chief complaint of weakness, decreased oral intake, diarrhea. The patient states he was having diarrhea for approximately 5 days. He states he has been feeling dizzy over the course of the past week. He states he has not had much to eat or drink in about a week. He does report history of alcohol abuse and states his last alcoholic drink was Tuesday morning. He is also a current cigarette smoker. Patient was found to have acute kidney injury. He has been followed by nephrology. This morning, patient went into SV T. He does report having chest pain and palpitations this morning. He was given a dose of adenosine with conversion to sinus mechanism. Patient denies any known history of SVT. DIAGNOSTICS: - EKG reveals sinus mechanism with IVCD. LVH. - Laboratory data: WBC 5.3. Hemoglobin 8.7. Platelet count 115. Sodium 139. Potassium 3.9. BUN 50. Creatinine 1.76. AST 84. ALT 51. Troponin 0.116. T SH 1.860. - Current home cardiac medications include amlodipine 10 mg daily, lisinopril 10 mg daily, Lipitor 40 mg at night - No previous echocardiogram or cardiac catheterization available in EMR for review REVIEW OF SYSTEMS: At the time of my exam: CONSTITUTIONAL: Denies fever or chills. HEENT: Denies blurred vision, vision changes, or eye pain. Denies hemoptysis CARDIOVASCULAR: Denies chest pain. Denies orthopnea. Denies PND. Denies palpitations RESPIRATORY: Denies shortness of breath. GASTROINTESTINAL: Denies abdominal pain. Denies nausea or vomiting. HEMATOLOGIC: Denies bleeding disorders. GENITOURINARY: Denies any blood in urine. SKIN: Denies pruitis. Denies rash. PHYSICAL EXAM: VITAL SIGNS: Reviewed. GENERAL: Well-developed in no acute distress. HEENT: Head is normocephalic. Pupils are equal, round. Sclerae anicteric. Mucous membranes of the mouth are moist. Neck supple. No JVD or thyromegaly LUNGS: Respirations even and unlabored. Lungs essentially clear to auscultation bilaterally. HEART: Regular rate and rhythm. S1 and S2 heard. ABDOMEN: Soft. Nondistended. Nontender. EXTREMITIES: Normal range of motion. No clubbing or cyanosis. Peripheral pulses intact. No lower extremity edema NEUROLOGIC: Awake and alert. Oriented x 3. ASSESSMENT: Diarrhea x 5 days with decreased oral intake Acute kidney injury Hyperkalemia Hyponatremia Hypomagnesemia Paroxysmal SVT Hypertension Hyperlipidemia Nicotine dependence History of alcohol abuse PLAN: Obtain 2D echo to assess cardiac structure and function Hold nephrotoxic agents Resume amlodipine 10 mg daily Add carvedilol 6.25 mg twice a day Obtain troponins Further recommendations pending patient course Nurse practitioner note has been reviewed by physician. Signing provider agrees with the documented findings, assessment, and plan of care documented by OVEN DAUBER as a scribe. Past Medical History Additional Past Medical History / Comment(s): Gout, History of Any Multi-Drug Resistant Organisms: None Reported Past Surgical History: No Surgical Hx Reported Past Anesthesia/Blood Transfusion Reactions: No Reported Reaction Past Psychological History: No Psychological Hx Reported Smoking Status: Current every day smoker Past Alcohol Use History: Abuse, Daily Past Drug Use History: Marijuana Medications and Allergies Home Medications Medication Instructions Recorded Confirmed Type Atorvastatin [Lipitor] 40 mg PO HS 09/07/23 04/03/24 History Omeprazole 20 mg PO DAILY 09/07/23 04/03/24 History allopurinoL [Zyloprim] 100 mg PO DAILY 09/07/23 04/03/24 History Magnesium Oxide [Mag-Ox] 400 mg PO DAILY #30 tab 09/13/23 04/03/24 Rx Cholecalciferol [Vitamin D3 (25 25 mcg PO DAILY 04/03/24 04/03/24 History Mcg = 1000 Iu)] Empagliflozin [Jardiance] 10 mg PO DIRECTED 04/03/24 04/03/24 History Ferrous Sulfate [Feosol] 325 mg PO DAILY 04/03/24 04/03/24 History Nicotine 14Mg/24Hr Patch [Habitrol 1 patch TRANSDERM DAILY PRN 04/03/24 04/03/24 History 14Mg/24Hr Patch] Nortriptyline [Pamelor] 10 mg PO HS PRN 04/03/24 04/03/24 History amLODIPine [Norvasc] 10 mg PO DAILY 04/03/24 04/03/24 History lisinopriL [Zestril] 10 mg PO DAILY 04/03/24 04/03/24 History Allergies Allergy/AdvReac Type Severity Reaction Status Date / Time No Known Allergies Allergy Verified 04/03/24 09:43 Physical Exam Vitals: Vital Signs Temp Pulse Pulse Resp BP Pulse Ox 04/05/24 08:10 99.7 F H 98 16 155/85 98 04/05/24 03:35 95 16 174/88 96 04/04/24 23:13 99.4 F 83 18 164/85 98 04/04/24 20:00 88 18 170/89 97 04/04/24 16:00 109 H 18 155/85 97 Intake and Output 04/04/24 04/05/24 04/05/24 22:59 06:59 14:59 Intake Total 240 540 Output Total 2 250 450 Balance 238 290 -450 Intake: Oral 240 540 Output: Urine 250 450 Urine/Stool Mix 2 Other: Voiding Method Bedside Commode Bedside Commode Bedside Commode Urinal Urinal Urinal # Voids 4 1 # Bowel Movements 4 2 Weight 72.3 kg Results 04/05/24 06:14 04/05/24 06:14 Cardiac Enzymes 04/05/24 04/05/24 Range/Units 06:14 09:56 AST 84 H (17-59) U/L Troponin I 0.116 H* (0.000-0.034) ng/mL CBC 04/05/24 Range/Units 06:14 WBC 5.3 (3.8-10.6) k/uL RBC 2.68 L (4.30-5.90) m/uL Hgb 8.7 L (13.0-17.5) gm/dL Hct 27.0 L (39.0-53.0) % Plt Count 115 L (150-450) k/uL Comprehensive Metabolic Panel 04/05/24 Range/Units 06:14 Sodium 139 (137-145) mmol/L Potassium 3.9 (3.5-5.1) mmol/L Chloride 105 (98-107) mmol/L Carbon Dioxide 33 H (22-30) mmol/L BUN 50 H (9-20) mg/dL Creatinine 1.76 H (0.66-1.25) mg/dL Glucose 65 L (74-99) mg/dL Calcium 7.7 L (8.4-10.2) mg/dL AST 84 H (17-59) U/L ALT 51 H (4-49) U/L Alkaline Phosphatase 65 (38-126) U/L Total Protein 4.8 L (6.3-8.2) g/dL Albumin 2.7 L (3.5-5.0) g/dL Current Medications Generic Name Dose Route Start Last Admin Trade Name Mainor PRN Reason Stop Dose Admin Acetaminophen 650 mg 04/04/24 03:25 04/04/24 03:31 Acetaminophen Tab 325 Mg Tab PO 650 mg Q6HR PRN Administration Fever and/ or Pain Carvedilol 6.25 mg 04/05/24 10:00 Carvedilol 6.25 Mg Tab PO BID-W/MEALS GELA Dextrose/Water 25 ml 04/04/24 13:05 Dextrose 50% Syringe 50 Ml IVP PER PROTOCOL PRN Hypoglycemia Protocol Dextrose/Water 50 ml 04/04/24 13:05 Dextrose 50% Syringe 50 Ml IVP PER PROTOCOL PRN Hypoglycemia Protocol Ergocalciferol 1,250 mcg 04/04/24 14:00 04/04/24 15:58 Ergocalciferol 1,250 Mcg (50,000 Iu) Capsule PO 1,250 mcg Q72H GELA Administration Ferrous Sulfate 325 mg 04/04/24 09:00 04/05/24 08:14 Ferrous Sulfate 325 Mg Tab PO 325 mg DAILY GELA Administration Heparin Sodium (Porcine) 0 unit 04/05/24 11:26 Heparin Sodium 1,000 Un/Ml (10ml Vl) IV PER PROTOCOL PRN Low PTT Protocol Heparin Sodium/Sodium Chloride 250 mls @ 8.676 mls/hr 04/05/24 11:30 25,000 unit/ Sodium Chloride IV .Q24H GELA Protocol 12 UNITS/KG/HR Insulin Aspart 0 unit 04/03/24 21:00 04/05/24 06:25 Insulin Aspart (Novolog) 100 Unit/Ml Vial SQ Not Given ACHS ON LICENSE OF [facility] Protocol Insulin Detemir 8 unit 04/04/24 21:00 04/05/24 08:13 Insulin Detemir (Levemir) 100 Unit/Ml Syr SQ 8 unit BID@0700,2100 GELA Administration Lorazepam 1 mg 04/03/24 07:25 Lorazepam 2 Mg/Ml Inj IV Q1HR PRN CIWA 10 to 15 Lorazepam 1 mg 04/03/24 07:25 04/05/24 08:14 Lorazepam 2 Mg/Ml Inj IV 1 mg Q2HR PRN Administration CIWA 8 or 9 Naloxone HCl 0.2 mg 04/03/24 10:37 Naloxone 0.4 Mg/Ml 1 Ml Vial IV Q2M PRN Opioid Reversal Nicotine 1 patch 04/03/24 14:18 Nicotine 14mg/24hr Patch TRANSDERM DAILY PRN Nicotine Cravings Pantoprazole Sodium 40 mg 04/04/24 09:00 04/05/24 08:14 Pantoprazole 40 Mg Tablet PO 40 mg DAILY GELA Administration Intake and Output 04/04/24 04/05/24 04/05/24 22:59 06:59 14:59 Intake Total 240 540 Output Total 2 250 450 Balance 238 290 -450 Intake: Oral 240 540 Output: Urine 250 450 Urine/Stool Mix 2 Other: Voiding Method Bedside Commode Bedside Commode Bedside Commode Urinal Urinal Urinal # Voids 4 1 # Bowel Movements 4 2 Weight 72.3 kg 04/05/24 06:14 04/05/24 06:14
[2024-04-05 12:05] LABS: INR 0.9 (<1.2); Partial Thromboplastin Time 24.2 sec (22.0-30.0); Prothrombin Time 9.7 sec (10.0-12.5)
--- NOTE | 2024-04-05 12:06 | CA ---
Transthoracic Echo Report Name: Piero Anders Age: 58 Gender: M : 1965 Exam Date: 04/05/2024 10:14 Exam Location: [facility] Ht (in): 68 Wt (lb): 159 Ordering Physician: Coni Dennis Attending/Referring Phys: [id number], Jeannie File Drawer Finisher Kavitha Hodges, BANDAR Procedure CPT: Indications: LV function, SVT, CP Cardiac Hx: Technical Quality: Good Contrast 1: Total Dose (mL): Contrast 2: Total Dose (mL): MEASUREMENTS (Male / Female) Normal Values 2D ECHO LV Diastolic Diameter PLAX 5.0 cm 4.2 - 5.9 / 3.9 - 5.3 cm LV Systolic Diameter PLAX 3.9 cm IVS Diastolic Thickness 1.3 cm 0.6 - 1.0 / 0.6 - 0.9 cm LVPW Diastolic Thickness 1.4 cm 0.6 - 1.0 / 0.6 - 0.9 cm LV Relative Wall Thickness 0.5 RV Internal Dim ED PLAX 2.0 cm LA Systolic Diameter LX 4.2 cm 3.0 - 4.0 / 2.7 - 3.8 cm LV Diastolic Volume MOD BP 136.6 cm??? 67 - 155 / 56 - 104 cm??? LV Systolic Volume MOD BP 83.9 cm??? 22 - 58 / 19 - 49 cm??? LV Ejection Fraction MOD BP 38.6 % >= 55 % LV Cardiac Index MOD BP 2541.3 cm???/min???m??? LV Diastolic Volume MOD 4C 143.3 cm??? LV Systolic Volume MOD 4C 83.0 cm??? LV Ejection Fraction MOD 4C 42.1 % LV Cardiac Index MOD 4C 2908.6 cm???/min???m??? LV Diastolic Length 4C 9.0 cm LV Systolic Length 4C 7.9 cm LV Diastolic Volume MOD 2C 125.5 cm??? LV Systolic Volume MOD 2C 76.4 cm??? LV Ejection Fraction MOD 2C 39.1 % LV Cardiac Index MOD 2C 2367.5 cm???/min???m??? LV Diastolic Length 2C 9.5 cm LV Systolic Length 2C 8.9 cm M-MODE Aortic Root Diameter MM 3.5 cm LA Systolic Diameter MM 3.6 cm LA Ao Ratio MM 1.0 AV Cusp Separation MM 2.2 cm DOPPLER AI Peak Velocity 445.5 cm/s AI Peak Gradient 79.4 mmHg AI Pressure Half Time 683.7 ms Mitral E Point Velocity 56.0 cm/s Mitral A Point Velocity 82.2 cm/s Mitral E to A Ratio 0.7 MV Deceleration Time 251.9 ms MV E' Velocity 5.5 cm/s Mitral E to MV E' Ratio 10.2 FINDINGS Left Ventricle Left ventricular ejection fraction is estimated at 40-45 %. Mildly increased septal wall thickness. Severely increased left ventricular systolic volume. Reduced global left ventricular systolic function. Right Ventricle Normal right ventricular size and function. Unable to estimate the right ventricular systolic pressure. Right Atrium Mild right atrial dilatation. Left Atrium Mildly increased left atrial diameter. Mitral Valve Structurally normal mitral valve. Mild mitral regurgitation. No mitral stenosis. Aortic Valve Trileaflet aortic valve. Diffuse thickening (sclerosis) of the aortic valve cusps without reduced excursion. Mild aortic regurgitation. Tricuspid Valve Structurally normal tricuspid valve. Trace tricuspid regurgitation. Pulmonic Valve Structurally normal pulmonic valve. Trace pulmonic regurgitation. Pericardium No pericardial or pleural effusion. Aorta Normal size aortic root and proximal ascending aorta. CONCLUSIONS Mild LV systolic dysfunction with an ejection fraction of 45% Mild mitral regurgitation Mild aortic regurgitation Aortic sclerosis without significant gradient across aortic valve Previewed by: Dr. Edmundo Menendez MD (Electronically Signed) Final Date: 05 April 2024 12:05
[2024-04-05] MEDS: amLODIPine 10 MG TAB PO SCH (12:29)
--- NOTE | 2024-04-05 13:43 | P.PN ---
Subjective Progress Note Date: 04/05/24 Patient is being seen for follow-up for acute kidney injury and metabolic acidosis. Acidosis has improved with improvement in renal function as well. Serum creatinine is down to 1.76 today. No significant complaints today. Objective - Vital Signs Vital signs: Vital Signs Temp 99.4 F 04/04/24 23:13 Pulse 95 04/05/24 03:35 Resp 16 04/05/24 03:35 BP 174/88 04/05/24 03:35 Pulse Ox 96 04/05/24 03:35 FiO2 Intake & Output 04/04/24 04/05/24 04/05/24 18:59 06:59 18:59 Intake Total 100 780 Output Total 3 250 Balance 97 530 Weight 72.3 kg Intake: Oral 100 780 Output: Urine 250 Urine/Stool Mix 3 Other: Voiding Method Bedside Commode Bedside Commode Urinal Urinal # Voids 4 1 # Bowel Movements 4 2 - Exam Vital signs are stable. General: No acute distress. HEENT: Head exam is unremarkable. Lungs: Bilateral breath sounds present; no rhonchi, wheezes, or rales. Heart: Rate and rhythm are regular. Abdomen: Nontender. Extremities: No edema present. - Labs CBC & Chem 7: 04/06/24 06:05 04/06/24 06:05 Labs: Abnormal Lab Results - Last 24 Hours (Table) 04/04/24 04/04/24 04/04/24 Range/Units 08:07 08:07 11:33 RBC 2.68 L (4.30-5.90) m/uL Hgb 8.9 L (13.0-17.5) gm/dL Hct 27.1 L (39.0-53.0) % MCV 101.4 H (80.0-100.0) fL RDW 17.8 H (11.5-15.5) % Plt Count 111 L (150-450) k/uL Lymphocytes # (1.0-4.8) k/uL Sodium 136 L (137-145) mmol/L Potassium 3.4 L (3.5-5.1) mmol/L Carbon Dioxide (22-30) mmol/L BUN 65 H (9-20) mg/dL Creatinine 2.71 H (0.66-1.25) mg/dL Glucose 122 H (74-99) mg/dL POC Glucose (mg/dL) 135 H (70-110) mg/dL Calcium 7.7 L (8.4-10.2) mg/dL Magnesium (1.6-2.3) mg/dL AST 105 H (17-59) U/L ALT 55 H (4-49) U/L Total Protein 4.8 L (6.3-8.2) g/dL Albumin 2.8 L (3.5-5.0) g/dL 04/04/24 04/04/24 04/05/24 Range/Units 16:28 20:01 06:14 RBC 2.68 L (4.30-5.90) m/uL Hgb 8.7 L (13.0-17.5) gm/dL Hct 27.0 L (39.0-53.0) % MCV 100.6 H (80.0-100.0) fL RDW 17.5 H (11.5-15.5) % Plt Count 115 L (150-450) k/uL Lymphocytes # 0.7 L (1.0-4.8) k/uL Sodium (137-145) mmol/L Potassium (3.5-5.1) mmol/L Carbon Dioxide (22-30) mmol/L BUN (9-20) mg/dL Creatinine (0.66-1.25) mg/dL Glucose (74-99) mg/dL POC Glucose (mg/dL) 200 H 151 H (70-110) mg/dL Calcium (8.4-10.2) mg/dL Magnesium (1.6-2.3) mg/dL AST (17-59) U/L ALT (4-49) U/L Total Protein (6.3-8.2) g/dL Albumin (3.5-5.0) g/dL 04/05/24 04/05/24 Range/Units 06:14 06:14 RBC (4.30-5.90) m/uL Hgb (13.0-17.5) gm/dL Hct (39.0-53.0) % MCV (80.0-100.0) fL RDW (11.5-15.5) % Plt Count (150-450) k/uL Lymphocytes # (1.0-4.8) k/uL Sodium (137-145) mmol/L Potassium (3.5-5.1) mmol/L Carbon Dioxide 33 H (22-30) mmol/L BUN 50 H (9-20) mg/dL Creatinine 1.76 H (0.66-1.25) mg/dL Glucose 65 L (74-99) mg/dL POC Glucose (mg/dL) (70-110) mg/dL Calcium 7.7 L (8.4-10.2) mg/dL Magnesium 1.0 L (1.6-2.3) mg/dL AST 84 H (17-59) U/L ALT 51 H (4-49) U/L Total Protein 4.8 L (6.3-8.2) g/dL Albumin 2.7 L (3.5-5.0) g/dL Assessment and Plan Assessment: 1. Acute kidney injury. Secondary to volume depletion and NSAIDs. Rule out obstructive uropathy. Check UA. No hydronephrosis seen on ultrasound 04/03/2024. 2. Metabolic acidosis. Anion gap secondary to alcohol, acute kidney injury, rule out DKA. Improving. 3. Hypovolemic hyponatremia. Improving. 4. Hyperkalemia. Secondary to acute kidney injury and metabolic acidosis. 1 dose of Lokelma given. Rule out urinary retention. Blood sugar elevated to 306, most likely contributing to hyperkalemia. Improved. 5. EtOH abuse. 6. Hypocalcemia. Corrected calcium 7.5. Rule out vitamin D deficiency - vitamin D 16.6 04/03/2024. Plan: Repeat labs in the morning. Continue on antihypertensive medications. D/c IVF. Agree with resident's findinds, assessment and plan.
--- NOTE | 2024-04-05 16:06 | P.PN ---
Progress Note - Text Progress Note Date: 04/05/24 patient is 58-year-old gentleman with past medical his significant for hypertension, hyperlipidemia, diabetes mellitus who presented to the ER because of not feeling well and feeling dizzy. Patient admits to drinking large amounts of alcohol daily. Patient stated that has been not been feeling his usual self for the last few days. Patient states that he has been drinking a lot and has not been eating enough. Patient was complaining of dizziness. There was no complaint of passing out. There was no complaint nausea, vomiting or abdominal pain. There was no current fever or chills at home. Patient denies any diarrhea. Because of the symptoms, patient came to the ER Initial lab work done in the ER showed WBC 5.6, hemoglobin 9.6, platelet count 152, sodium 138, potassium 6.2, carbon oxide 5, BUN 74, creatinine zero 6.26 glucose 122, lactate 2.2, calcium 7.4, AST 131, ALT 74 EKG done in the ER showed heart rate of 82, no ST segment elevation or depression seen, no T-wave inversions seen. Patient admitted to internal medicine service 04/04. Patient seen and examined. Blood work this morning showed WBC 5.6, hemoglobin 8.9, sodium 100, potassium 3.4, BUN 65, creatinine 2.71 April 05: Eating better. Appetite is better. Had a bowel movement. Diarrhea resolved. Making good urine. Last alcohol intake was on Tuesday. Also smoker. Patient had an episode of chest pain and palpitations. Episode of SVT around 5 AM was given adenosine.. Coreg was added by cardiology. Placed on IV heparin. Had a 7 beat V. tach run around 2 PM Social history: Drinking half of pint of alcohol daily. girlfriend Pastora. Smoked a pack and a half for about 40 years. Used to do construction work Physical examination: VITAL SIGNS: 100.2, 97, 16, 167/91, 98% room air GENERAL: Sitting up comfortable EYES: Pupils equal. Conjunctiva normal. HEENT: External appearance of nose and ears normal, oral cavity grossly normal. NECK: JVD not raised; masses not palpable. HEART: First and second heart sounds are normal; no edema. LUNGS: Respiratory rate normal; clear to auscultation. ABDOMEN: Soft, nontender, liver spleen not palpable, no masses palpable. PSYCH: Alert and oriented x3; mood and affect normal. MUSCULOSKELETAL:No Clubbing/cyanosis;muscles-grossly intact INVESTIGATIONS, reviewed in the clinical context: April 05: White count 5.3 hemoglobin 8.7 platelets 115 sodium 139 potassium 3.9 BUN 50 creatinine 1.76 magnesium 1.0 AST 84 ALT 51 troponin I 0.137 albumin 2.7 TSH 1.8 2D echocardiogram EF 40 to 45%. 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 -Episode of nonsustained V. tach 7 beat run today, low magnesium Coreg and magnesium added -Paroxysmal SVT episode this morning. Given IV adenosine -Medical asthenia multifactorial - metabolic acidosis due to severe renal and alcohol Received bicarbonate drip -COPD in a current smoker DuoNeb -GERD Protonix -Essential hypertension, amlodipine 10 mg. Coreg 6.25 twice daily . -Hyponatremia from decreased solute intake: Better -Hyperkalemia secondary to renal failure: Better -Acute hepatitis secondary to alcoholism: Better -Alcoholic liver disease/hepatitis -Alcohol use disorder -Hypomagnesemia Replace magnesium Discussed with patient. Cardiology following., Magnesium added
[2024-04-05 16:21] LABS: Glucose,Whole Blood 137 mg/dL (70-110)
[2024-04-05] MEDS: IPRATROPIUM-ALBUTEROL 3 ML NEB INHALATION SCH (16:58)
[2024-04-05] MEDS: MAGNESIUM OXIDE 400 MG TAB PO SCH (17:21)
[2024-04-05] MEDS: DAPAGLIFLOZIN PROPANEDIOL 5 MG TABLET PO SCH (17:23)
[2024-04-05] MEDS: HEPARIN SODIUM 1,000 UN/ML (10ML VL) IV PRN (19:43)
[2024-04-05 20:02] LABS: Glucose,Whole Blood 137 mg/dL (70-110)
[2024-04-06 06:03] LABS: Glucose,Whole Blood 97 mg/dL (70-110)
[2024-04-06 06:37] LABS: Anisocytosis Slight; Basophils % (A) 0 %; Eosinophils # (A) 0.1 k/uL (0-0.7); Eosinophils % (A) 1 %; HCT 28.8 % (39.0-53.0); HGB 8.9 gm/dL (13.0-17.5); Hypochromasia Slight; Lymphocytes % (A) 13 %; MCH 31.2 pg (25.0-35.0); MCHC 30.8 g/dL (31.0-37.0); MCV 101.6 fL (80.0-100.0); Macrocytosis Moderate; Mean Platelet Volume 9.3; Monocytes # (A) 0.8 k/uL (0-1.0); Monocytes % (A) 11 %; Neutrophils # (A) 5.7 k/uL (1.3-7.7); Neutrophils % (A) 73 %; Platelet Count 100 k/uL (150-450); RBC 2.84 m/uL (4.30-5.90); RDW 17.8 % (11.5-15.5); WBC 7.8 k/uL (3.8-10.6)
[2024-04-06 06:50] LABS: INR 0.8 (<1.2); Prothrombin Time 9.5 sec (10.0-12.5)
[2024-04-06 07:01] LABS: African American GFR (CKD) 45 (>60 ml/min/1.73 sqM); Anion Gap 2 mmol/L; Blood Urea Nitrogen 40 mg/dL (9-20); Calcium 8.3 mg/dL (8.4-10.2); Carbon Dioxide 30 mmol/L (22-30); Chloride 103 mmol/L (98-107); Glucose 91 mg/dL (74-99); Non-African American GFR(CKD) 39 (>60 ml/min/1.73 sqM); Potassium 4.5 mmol/L (3.5-5.1); Sodium 135 mmol/L (137-145)
--- NOTE | 2024-04-06 11:31 | P.PN ---
Subjective HISTORY OF PRESENT ILLNESS: This is a 58-year-old male with a past medical history significant for hypertension, hyperlipidemia, nicotine dependence, and alcohol abuse. Patient does not follow with a assisted living coordinator. We have been asked to see the patient in consultation for SVT. Patient examined at the bedside. Patient initially presented to the hospital due to a chief complaint of weakness, decreased oral intake, diarrhea. The patient states he was having diarrhea for approximately 5 days. He states he has been feeling dizzy over the course of the past week. He states he has not had much to eat or drink in about a week. He does report history of alcohol abuse and states his last alcoholic drink was Tuesday morning. He is also a current cigarette smoker. Patient was found to have acute kidney injury. He has been followed by nephrology. This morning, patient went into SVT. He does report having chest pain and palpitations this morning. He was given a dose of adenosine with conversion to sinus mechanism. Patient denies any known history of SVT. DIAGNOSTICS: - EKG reveals sinus mechanism with IVCD. LVH. - Laboratory data: WBC 5.3. Hemoglobin 8.7. Platelet count 115. Sodium 139. Potassium 3.9. BUN 50. Creatinine 1.76. AST 84. ALT 51. Troponin 0.116. TSH 1.860. - Current home cardiac medications include amlodipine 10 mg daily, lisinopril 10 mg daily, Lipitor 40 mg at night - No previous echocardiogram or cardiac catheterization available in EMR for review April 06, 2024 Patient examined this morning at the bedside. Patient currently denies chest pain or pressure. He denies shortness of breath. Vital signs are stable. Telemetry Veals sinus mechanism with heart rate in the 80s. Echocardiogram performed revealing ejection fraction 40 to 45%. He remains on IV heparin. Creatinine today 1.83. PHYSICAL EXAM: VITAL SIGNS: Reviewed. GENERAL: Well-developed in no acute distress. HEENT: Head is normocephalic. Pupils are equal, round. Sclerae anicteric. Mucous membranes of the mouth are moist. Neck supple. No JVD or thyromegaly LUNGS: Respirations even and unlabored. Lungs essentially clear to auscultation bilaterally. HEART: Regular rate and rhythm. S1 and S2 heard. ABDOMEN: Soft. Nondistended. Nontender. EXTREMITIES: Normal range of motion. No clubbing or cyanosis. Peripheral pulses intact. No lower extremity edema NEUROLOGIC: Awake and alert. Oriented x 3. ASSESSMENT: Diarrhea x 5 days with decreased oral intake Acute kidney injury Hyperkalemia Hyponatremia Hypomagnesemia New onset cardiomyopathy, 40 to 45%, ischemic versus nonischemic Elevated troponins, flat, likely myocardial injury without ischemia secondary to SVT, cannot rule out underlying CAD Paroxysmal SVT Hypertension Hyperlipidemia Nicotine dependence History of alcohol abuse PLAN: Continue IV heparin for an additional 24 hours Add aspirin and atorvastatin Add MARSHAL/ARB when kidney function improves Suspect patient's cardiomyopathy is nonischemic. However when TOYA resolves, patient will require cardiac catheterization to evaluate cardiomyopathy Further recommendations pending patient course Nurse practitioner note has been reviewed by physician. Signing provider agrees with the documented findings, assessment, and plan of care documented by HUMAN SERVICES ASSISTANT as a scribe. Objective - Vital Signs Vital signs: Vital Signs Temp 99.9 F H 04/06/24 08:00 Pulse 97 04/06/24 09:22 Resp 16 04/06/24 08:00 BP 139/76 04/06/24 08:00 Pulse Ox 94 L 04/06/24 08:00 FiO2 Intake & Output 04/05/24 04/06/24 04/06/24 18:59 06:59 18:59 Intake Total 118 66.082 118 Output Total 851 400 250 Balance -733 -333.918 -132 Weight 71.2 kg Intake: Intake, IV Titration 66.082 Amount Heparin Sod,Pork in 0.45% 66.082 NaCl 25,000 unit In 0.45 % NaCl 1 250ml.bag @ 12 UNITS/KG/HR 8.676 mls/hr IV .Q24H [facility] Rx#: [id number] Oral 118 118 Output: Urine 850 400 250 Urine/Stool Mix 1 Other: Voiding Method Bedside Commode Bedside Commode Bedside Commode Urinal Urinal Urinal # Voids 1 # Bowel Movements 1 1 - Labs CBC & Chem 7: 04/06/24 06:05 04/06/24 06:05 Labs: Abnormal Lab Results - Last 24 Hours (Table) 04/05/24 04/05/24 04/05/24 Range/Units 11:48 11:48 16:20 RBC (4.30-5.90) m/uL Hgb (13.0-17.5) gm/dL Hct (39.0-53.0) % MCV (80.0-100.0) fL MCHC (31.0-37.0) g/dL RDW (11.5-15.5) % Plt Count (150-450) k/uL PT 9.7 L (10.0-12.5) sec APTT (22.0-30.0) sec Sodium (137-145) mmol/L BUN (9-20) mg/dL Creatinine (0.66-1.25) mg/dL POC Glucose (mg/dL) 137 H (70-110) mg/dL Calcium (8.4-10.2) mg/dL Troponin I 0.137 H* (0.000-0.034) ng/mL 04/05/24 04/05/24 04/06/24 Range/Units 17:37 20:00 00:53 RBC (4.30-5.90) m/uL Hgb (13.0-17.5) gm/dL Hct (39.0-53.0) % MCV (80.0-100.0) fL MCHC (31.0-37.0) g/dL RDW (11.5-15.5) % Plt Count (150-450) k/uL PT (10.0-12.5) sec APTT 38.8 H 56.6 H (22.0-30.0) sec Sodium (137-145) mmol/L BUN (9-20) mg/dL Creatinine (0.66-1.25) mg/dL POC Glucose (mg/dL) 137 H (70-110) mg/dL Calcium (8.4-10.2) mg/dL Troponin I (0.000-0.034) ng/mL 04/06/24 04/06/24 04/06/24 Range/Units 06:05 06:05 06:05 RBC 2.84 L (4.30-5.90) m/uL Hgb 8.9 L (13.0-17.5) gm/dL Hct 28.8 L (39.0-53.0) % MCV 101.6 H (80.0-100.0) fL MCHC 30.8 L (31.0-37.0) g/dL RDW 17.8 H (11.5-15.5) % Plt Count 100 L (150-450) k/uL PT 9.5 L (10.0-12.5) sec APTT (22.0-30.0) sec Sodium 135 L (137-145) mmol/L BUN 40 H (9-20) mg/dL Creatinine 1.83 H (0.66-1.25) mg/dL POC Glucose (mg/dL) (70-110) mg/dL Calcium 8.3 L (8.4-10.2) mg/dL Troponin I (0.000-0.034) ng/mL
[2024-04-06 11:34] LABS: Glucose,Whole Blood 109 mg/dL (70-110)
[2024-04-06] MEDS: ASPIRIN 81 MG PO SCH (12:22)
--- NOTE | 2024-04-06 14:39 | P.PN ---
Subjective Progress Note Date: 04/06/24 Patient is being seen for follow-up for acute kidney injury and metabolic acidosis. Patient underwent echo on 04/05/2024 which revealed an ejection fraction of 40 to 45%. Acidosis has improved with improvement in renal function as well. Serum creatinine is 1.83 today, up from 1.76 yesterday. No significant complaints today. Objective - Vital Signs Vital signs: Vital Signs Temp 98.8 F 04/06/24 03:38 Pulse 92 04/06/24 03:38 Resp 16 04/06/24 03:38 BP 150/82 04/06/24 03:38 Pulse Ox 94 L 04/06/24 03:38 FiO2 Intake & Output 04/05/24 04/06/24 04/06/24 18:59 06:59 18:59 Intake Total 118 66.082 Output Total 851 400 Balance -733 -333.918 Weight 71.2 kg Intake: Intake, IV Titration 66.082 Amount Heparin Sod,Pork in 0.45% 66.082 NaCl 25,000 unit In 0.45 % NaCl 1 250ml.bag @ 12 UNITS/KG/HR 8.676 mls/hr IV .Q24H [facility] Rx#: [id number] Oral 118 Output: Urine 850 400 Urine/Stool Mix 1 Other: Voiding Method Bedside Commode Bedside Commode Urinal Urinal # Bowel Movements 1 - Labs CBC & Chem 7: 04/06/24 06:05 04/07/24 06:14 Labs: Abnormal Lab Results - Last 24 Hours (Table) 04/05/24 04/05/24 04/05/24 Range/Units 09:56 11:48 11:48 RBC (4.30-5.90) m/uL Hgb (13.0-17.5) gm/dL Hct (39.0-53.0) % MCV (80.0-100.0) fL MCHC (31.0-37.0) g/dL RDW (11.5-15.5) % Plt Count (150-450) k/uL PT 9.7 L (10.0-12.5) sec APTT (22.0-30.0) sec Sodium (137-145) mmol/L BUN (9-20) mg/dL Creatinine (0.66-1.25) mg/dL POC Glucose (mg/dL) (70-110) mg/dL Calcium (8.4-10.2) mg/dL Troponin I 0.116 H* 0.137 H* (0.000-0.034) ng/mL 04/05/24 04/05/24 04/05/24 Range/Units 16:20 17:37 20:00 RBC (4.30-5.90) m/uL Hgb (13.0-17.5) gm/dL Hct (39.0-53.0) % MCV (80.0-100.0) fL MCHC (31.0-37.0) g/dL RDW (11.5-15.5) % Plt Count (150-450) k/uL PT (10.0-12.5) sec APTT 38.8 H (22.0-30.0) sec Sodium (137-145) mmol/L BUN (9-20) mg/dL Creatinine (0.66-1.25) mg/dL POC Glucose (mg/dL) 137 H 137 H (70-110) mg/dL Calcium (8.4-10.2) mg/dL Troponin I (0.000-0.034) ng/mL 04/06/24 04/06/24 04/06/24 Range/Units 00:53 06:05 06:05 RBC 2.84 L (4.30-5.90) m/uL Hgb 8.9 L (13.0-17.5) gm/dL Hct 28.8 L (39.0-53.0) % MCV 101.6 H (80.0-100.0) fL MCHC 30.8 L (31.0-37.0) g/dL RDW 17.8 H (11.5-15.5) % Plt Count 100 L (150-450) k/uL PT 9.5 L (10.0-12.5) sec APTT 56.6 H (22.0-30.0) sec Sodium (137-145) mmol/L BUN (9-20) mg/dL Creatinine (0.66-1.25) mg/dL POC Glucose (mg/dL) (70-110) mg/dL Calcium (8.4-10.2) mg/dL Troponin I (0.000-0.034) ng/mL 04/06/24 Range/Units 06:05 RBC (4.30-5.90) m/uL Hgb (13.0-17.5) gm/dL Hct (39.0-53.0) % MCV (80.0-100.0) fL MCHC (31.0-37.0) g/dL RDW (11.5-15.5) % Plt Count (150-450) k/uL PT (10.0-12.5) sec APTT (22.0-30.0) sec Sodium 135 L (137-145) mmol/L BUN 40 H (9-20) mg/dL Creatinine 1.83 H (0.66-1.25) mg/dL POC Glucose (mg/dL) (70-110) mg/dL Calcium 8.3 L (8.4-10.2) mg/dL Troponin I (0.000-0.034) ng/mL Assessment and Plan Assessment: 1. Acute kidney injury. Secondary to volume depletion and NSAIDs. No hydronephrosis seen on ultrasound 04/03/2024. 2. Metabolic acidosis. Anion gap secondary to alcohol, acute kidney injury, rule out DKA. Improving. 3. Hypovolemic hyponatremia. Improving. 4. Hyperkalemia. Secondary to acute kidney injury and metabolic acidosis. 1 dose of Lokelma given. Rule out urinary retention. Blood sugar elevated to 306, most likely contributing to hyperkalemia. Improved. 5. EtOH abuse. 6. Hypocalcemia. Corrected calcium 04/06/2024 is 9.7. vitamin D deficiency noted - vitamin D 16.6 04/03/2024. Maintained on supplementation. Plan: Avoid nephrotoxic agents. Continue magnesium. Maintain Vit D supplementation. Continue antihypertensive medications. Continue to monitor renal function. Repeat labs in the morning. Agree with resident's findings, assessment and plan.
--- NOTE | 2024-04-06 16:04 | XR ---
EXAMINATION TYPE: XR chest 1V DATE OF EXAM: 04/06/2024 COMPARISON: 09/07/2023 HISTORY: CHF TECHNIQUE: Single frontal view of the chest is obtained. FINDINGS: There is a large retrocardiac opacity obscuring left hemidiaphragm likely combination of pleural effu bria and there is pneumonic infiltrate or atelectasis. The pulmonary vasculature is not congested. No pneumothorax or right pleural effusion. The osseous structures are intact. IMPRESSION: Acute cardiopulmonary disease involving the left lung base. Findings are more suggestive of acute pne umonic process such as pneumonia versus CHF. Clinical correlation recommended.
[2024-04-06 16:31] LABS: Glucose,Whole Blood 175 mg/dL (70-110)
--- NOTE | 2024-04-06 17:21 | P.PN ---
Progress Note - Text Progress Note Date: 04/06/24 patient is 58-year-old gentleman with past medical his significant for hypertension, hyperlipidemia, diabetes mellitus who presented to the ER because of not feeling well and feeling dizzy. Patient admits to drinking large amounts of alcohol daily. Patient stated that has been not been feeling his usual self for the last few days. Patient states that he has been drinking a lot and has not been eating enough. Patient was complaining of dizziness. There was no complaint of passing out. There was no complaint nausea, vomiting or abdominal pain. There was no current fever or chills at home. Patient denies any diarrhea. Because of the symptoms, patient came to the ER Initial lab work done in the ER showed WBC 5.6, hemoglobin 9.6, platelet count 152, sodium 138, potassium 6.2, carbon oxide 5, BUN 74, creatinine zero 6.26 glucose 122, lactate 2.2, calcium 7.4, AST 131, ALT 74 EKG done in the ER showed heart rate of 82, no ST segment elevation or depression seen, no T-wave inversions seen. Patient admitted to internal medicine service 04/04. Patient seen and examined. Blood work this morning showed WBC 5.6, hemoglobin 8.9, sodium 100, potassium 3.4, BUN 65, creatinine 2.71 April 05: Eating better. Appetite is better. Had a bowel movement. Diarrhea resolved. Making good urine. Last alcohol intake was on Tuesday. Also smoker. Patient had an episode of chest pain and palpitations. Episode of SVT around 5 AM was given adenosine.. Coreg was added by cardiology. Placed on IV heparin. Had a 7 beat V. tach run around 2 PM April 06: The patient this morning. Resting. IV heparin. Farxiga was added yesterday. Seems to leveled off. 1.83 . eating fair. Will increase Coreg to 9 mg, cut back amlodipine to 5 mg Active Medications Acetaminophen (Acetaminophen Tab 325 Mg Tab) 650 mg PO Q6HR PRN PRN Reason: Fever and/ or Pain Last Admin: 04/06/24 08:11 Dose: 650 mg Albuterol/Ipratropium (Ipratropium-Albuterol 3 Ml Neb) 3 ml INHALATION RT-TID [facility] Last Admin: 04/06/24 12:42 Dose: 3 ml Amlodipine Besylate (Amlodipine 10 Mg Tab) 10 mg PO DAILY [facility] Last Admin: 04/06/24 08:12 Dose: 10 mg Aspirin (Aspirin 81 Mg) 81 mg PO DAILY [facility] Last Admin: 04/06/24 12:22 Dose: 81 mg Atorvastatin Calcium (Atorvastatin 40 Mg Tab) 40 mg PO HS [facility] Carvedilol (Carvedilol 6.25 Mg Tab) 6.25 mg PO BID-W/MEALS [facility] Last Admin: 04/06/24 16:21 Dose: 6.25 mg Dapagliflozin (Dapagliflozin Propanediol 5 Mg Tablet) 5 mg PO DAILY [facility] Last Admin: 04/06/24 08:11 Dose: 5 mg Dextrose/Water (Dextrose 50% Syringe 50 Ml) 25 ml IVP PER PROTOCOL PRN; Protocol PRN Reason: Hypoglycemia Dextrose/Water (Dextrose 50% Syringe 50 Ml) 50 ml IVP PER PROTOCOL PRN; Protocol PRN Reason: Hypoglycemia Ergocalciferol (Ergocalciferol 1,250 Mcg (50,000 Iu) Capsule) 1,250 mcg PO Q72H [facility] Last Admin: 04/04/24 15:58 Dose: 1,250 mcg Ferrous Sulfate (Ferrous Sulfate 325 Mg Tab) 325 mg PO DAILY [facility] Last Admin: 04/06/24 08:11 Dose: 325 mg Heparin Sodium (Porcine) (Heparin Sodium 1,000 Un/Ml (10ml Vl)) 0 unit IV PER PROTOCOL PRN; Protocol PRN Reason: Low PTT Last Admin: 04/05/24 19:43 Dose: 4,000 unit Heparin Sodium/Sodium Chloride (25,000 unit/ Sodium Chloride) 250 mls @ 8.676 mls/hr IV .Q24H [facility]; Protocol Last Admin: 04/06/24 12:22 Dose: 14 units/kg/hr, 10.122 mls/hr Insulin Aspart (Insulin Aspart (Novolog) 100 Unit/Ml Vial) 0 unit SQ ACHS [facility]; Protocol Last Admin: 04/06/24 16:50 Dose: Not Given Lorazepam (Lorazepam 2 Mg/Ml Inj) 1 mg IV Q1HR PRN PRN Reason: CIWA 10 to 15 Lorazepam (Lorazepam 2 Mg/Ml Inj) 1 mg IV Q2HR PRN PRN Reason: CIWA 8 or 9 Last Admin: 04/05/24 15:27 Dose: 1 mg Magnesium Oxide (Magnesium Oxide 400 Mg Tab) 400 mg PO TID [facility] Last Admin: 04/06/24 16:21 Dose: 400 mg Naloxone HCl (Naloxone 0.4 Mg/Ml 1 Ml Vial) 0.2 mg IV Q2M PRN PRN Reason: Opioid Reversal Nicotine (Nicotine 14mg/24hr Patch) 1 patch TRANSDERM DAILY PRN PRN Reason: Nicotine Cravings Pantoprazole Sodium (Pantoprazole 40 Mg Tablet) 40 mg PO DAILY [facility] Last Admin: 04/06/24 08:11 Dose: 40 mg Social history: Drinking half of pint of alcohol daily. girlfriend Pastora. Smoked a pack and a half for about 40 years. Used to do construction work Physical examination: VITAL SIGNS: 99.9, 95, 16, 139 x 76, 94% room air GENERAL: Resting EYES: Pupils equal. Conjunctiva normal. HEENT: External appearance of nose and ears normal, oral cavity grossly normal. NECK: JVD not raised; masses not palpable. HEART: First and second heart sounds are normal; no edema. LUNGS: Respiratory rate normal; clear to auscultation. ABDOMEN: Soft, nontender, liver spleen not palpable, no masses palpable. PSYCH: Alert and oriented x3; mood and affect normal. MUSCULOSKELETAL:No Clubbing/cyanosis;muscles-grossly intact INVESTIGATIONS, reviewed in the clinical context: April 06: White count 7.8 hemoglobin 8.9 platelets 100 potassium 4.5 BUN 40 creatinine 1.83 April 05: White count 5.3 hemoglobin 8.7 platelets 115 sodium 139 potassium 3.9 BUN 50 creatinine 1.76 magnesium 1.0 AST 84 ALT 51 troponin I 0.137 albumin 2.7 TSH 1.8 2D echocardiogram EF 40 to 45%. Aortic sclerosis Assessment and plan -Acute kidney injury secondary to volume depletion and NSAIDs.: Creatinine seems to have plateaued Admission creatinine 6.26 -Thrombocytopenia due to alcohol liver disease -IV heparin monitoring Follow PTT -Chronic alcoholic cardiomyopathy systolic dysfunction EF 40 to 45% likely secondary to alcoholism. Possible cardiac catheterization down the road. -Episode of nonsustained V. tach 7 beat , low magnesium Coreg and magnesium -Paroxysmal SVT episode Given IV adenosine -Medical asthenia multifactorial - metabolic acidosis due to severe renal and alcohol Received bicarbonate drip -COPD in a current smoker DuoNeb -GERD Protonix -Essential hypertension, amlodipine cut back to 5 mg a day. Coreg 6.25 twice daily.. Add additional Coreg 3.125 twice daily . -Hyponatremia from decreased solute intake: Better -Hyperkalemia secondary to renal failure: Better -Acute hepatitis secondary to alcoholism: Better -Alcoholic liver disease/hepatitis -Alcohol use disorder -Hypomagnesemia Replace magnesium Discussed with patient. Cardiology following., Magnesium. Increase Coreg. Cut back amlodipine.
[2024-04-06] MEDS: carvediloL 3.125 MG TAB PO SCH (18:55)
[2024-04-06 20:15] LABS: Glucose,Whole Blood 141 mg/dL (70-110)
[2024-04-06] MEDS: ATORVASTATIN 40 MG TAB PO SCH (20:56)
[2024-04-07 06:13] LABS: Glucose,Whole Blood 100 mg/dL (70-110)
[2024-04-07 07:06] LABS: African American GFR (CKD) 43 (>60 ml/min/1.73 sqM); Anion Gap 0 mmol/L; Blood Urea Nitrogen 34 mg/dL (9-20); Calcium 8.5 mg/dL (8.4-10.2); Carbon Dioxide 29 mmol/L (22-30); Chloride 108 mmol/L (98-107); Glucose 88 mg/dL (74-99); Non-African American GFR(CKD) 37 (>60 ml/min/1.73 sqM); Phosphorus 2.6 mg/dL (2.5-4.5); Potassium 4.4 mmol/L (3.5-5.1); Sodium 137 mmol/L (137-145)
[2024-04-07] MEDS: amLODIPine 5 MG TAB PO SCH (09:41)
--- NOTE | 2024-04-07 11:01 | P.PN ---
Subjective Progress Note Date: 04/07/24 The patient is a 58-year-old gentleman with a past medical history significant for history of excessive alcohol use and recent diagnosis of cardiomyopathy as well as hypertension and dyslipidemia who was admitted to the hospital with diarrhea and he was diagnosed with acute renal failure. An echo performed and showed cardiomyopathy which is no. He was also in acute renal failure April 07, 2024 The patient was seen and evaluated this morning with he is asymptomatic. He is hemodynamically stable beside the pressure is consistent with stage II hypertension. The initial plan was to perform a heart catheterization but his creatinine is worse today. With that being said we are holding on performing a heart catheterization meanwhile adjust his blood pressure medication and add amlodipine to the current medical regimen. Beside that continue aspirin and beta-raeann. The examination is remarkable for regular rhythm with a systolic murmur and clear breathing sounds bilaterally and no edema was noted Assessment History of excessive alcohol use Acute renal failure likely secondary to diarrhea Recent diagnosis of cardiomyopathy Hypertension Multiple comorbid conditions Plan Continue current medical regimen including aspirin and beta-raeann and statin Increase the dose of amlodipine DC heparin Continue maximize medical treatment for cardiomyopathy once the creatinine improves Consider coronary angiogram as well once the kidney function improved Objective - Vital Signs Vital signs: Vital Signs Temp 99.3 F 04/07/24 08:00 Pulse 94 04/07/24 09:40 Resp 16 04/07/24 09:40 BP 143/75 04/07/24 08:00 Pulse Ox 100 04/07/24 08:00 FiO2 Intake & Output 04/06/24 04/07/24 04/07/24 18:59 06:59 18:59 Intake Total 291.761 325.599 Output Total 1025 0 Balance -733.239 0 325.599 Weight 70.3 kg Intake: Intake, IV Titration 173.761 215.599 Amount Heparin Sod,Pork in 0.45% 173.761 215.599 NaCl 25,000 unit In 0.45 % NaCl 1 250ml.bag @ 12 UNITS/KG/HR 8.676 mls/hr IV .Q24H [facility] Rx#: [id number] Oral 118 110 Output: Urine 1025 0 Other: Voiding Method Bedside Commode Bedside Commode Urinal Urinal # Voids 1 # Bowel Movements 1 - Labs CBC & Chem 7: 04/06/24 06:05 04/07/24 06:14 Labs: Abnormal Lab Results - Last 24 Hours (Table) 04/06/24 04/06/24 04/07/24 Range/Units 16:30 20:14 06:14 APTT (22.0-30.0) sec Chloride 108 H (98-107) mmol/L BUN 34 H (9-20) mg/dL Creatinine 1.93 H (0.66-1.25) mg/dL POC Glucose (mg/dL) 175 H 141 H (70-110) mg/dL 04/07/24 Range/Units 06:14 APTT 32.2 H (22.0-30.0) sec Chloride (98-107) mmol/L BUN (9-20) mg/dL Creatinine (0.66-1.25) mg/dL POC Glucose (mg/dL) (70-110) mg/dL
[2024-04-07 12:13] LABS: Glucose,Whole Blood 111 mg/dL (70-110)
[2024-04-07] MEDS: amLODIPine 5 MG TAB PO STA (12:39)
[2024-04-07] MEDS: DICLOFENAC SODIUM GEL 50 GM TUBE TOPICAL SCH (13:12)
--- NOTE | 2024-04-07 13:45 | P.PN ---
Subjective Patient is being seen for follow-up for acute kidney injury and metabolic acidosis. Patient underwent echo on 04/05/2024 which revealed an ejection fraction of 40 to 45%. Acidosis has improved with improvement in renal function as well. Serum crea tinine decreased to 1.7 from 6.2 on initial admission and has been slowly increasing again and is 1.9 today. Tolerating oral intake. No nausea vomiting or diarrhea. No significant complaints today. Objective - Vital Signs Vital signs: Vital Signs Temp 99.3 F 04/07/24 08:00 Pulse 85 04/07/24 13:30 Resp 18 04/07/24 13:30 BP 143/75 04/07/24 08:00 Pulse Ox 100 04/07/24 08:00 FiO2 Intake & Output 04/06/24 04/07/24 04/07/24 18:59 06:59 18:59 Intake Total 291.761 435.599 Output Total 1025 0 Balance -733.239 0 435.599 Weight 70.3 kg Intake: Intake, IV Titration 173.761 215.599 Amount Heparin Sod,Pork in 0.45% 173.761 215.599 NaCl 25,000 unit In 0.45 % NaCl 1 250ml.bag @ 12 UNITS/KG/HR 8.676 mls/hr IV .Q24H [facility] Rx#: [id number] Oral 118 220 Output: Urine 1025 0 Other: Voiding Method Bedside Commode Bedside Commode Urinal Urinal # Voids 1 # Bowel Movements 1 - Exam Vital signs are stable. General: No acute distress. HEENT: Head exam is unremarkable. Lungs: Bilateral breath sounds present; no rhonchi, wheezes, or rales. Heart: Rate and rhythm are regular. Abdomen: Nontender. Extremities: No edema present. - Labs CBC & Chem 7: 04/06/24 06:05 04/07/24 06:14 Labs: Abnormal Lab Results - Last 24 Hours (Table) 04/06/24 04/06/24 04/07/24 Range/Units 16:30 20:14 06:14 APTT (22.0-30.0) sec Chloride 108 H (98-107) mmol/L BUN 34 H (9-20) mg/dL Creatinine 1.93 H (0.66-1.25) mg/dL POC Glucose (mg/dL) 175 H 141 H (70-110) mg/dL Troponin I (0.000-0.034) ng/mL 04/07/24 04/07/24 04/07/24 Range/Units 06:14 12:12 12:36 APTT 32.2 H (22.0-30.0) sec Chloride (98-107) mmol/L BUN (9-20) mg/dL Creatinine (0.66-1.25) mg/dL POC Glucose (mg/dL) 111 H (70-110) mg/dL Troponin I 0.039 H* (0.000-0.034) ng/mL Assessment and Plan Assessment: 1. Acute kidney injury. Secondary to volume depletion and NSAIDs. No hydronephrosis seen on ultrasound 04/03/2024. Renal function has improved since admission however serum creatinine seems to be increasing her been slowly post discontinuation of IV fluids. 2. Metabolic acidosis. Anion gap secondary to alcohol, acute kidney injury, resolved. 3. Hypovolemic hyponatremia. Improving. 4. Hyperkalemia. Secondary to acute kidney injury and metabolic acidosis and hyperglycemia. Improved. 5. EtOH abuse. 6. Hypocalcemia. Corrected calcium 04/06/2024 is 9.7. vitamin D deficiency noted - vitamin D 16.6 04/03/2024. Maintained on supplementation. Plan: restart IV fluids Continue magnesium. Maintain Vit D supplementation. Continue antihypertensive medications. Continue to monitor renal function.
[2024-04-07] MEDS: ADENOSINE 3 MG/ML 2 ML VIAL IVP ONE (15:04)
[2024-04-07] MEDS: ADENOSINE 3 MG/ML 2 ML VIAL IVP STA ×2 (16:07→19:03)
[2024-04-07] MEDS ORDERED: Magnesium Replacement Protocol 1 EACH MISC MISCELLANE PRN (16:13)
[2024-04-07] MEDS: SODIUM CHLORIDE 0.9% 1,000 ML IV SCH (16:22)
[2024-04-07] MEDS: MAGNESIUM SULFATE-D5W PMX 1 GM in DEXTROSE/WATER 1 100ML.BAG IVPB SCH (16:22)
[2024-04-07] MEDS: DILTIAZEM 125 MG in SODIUM CHLORIDE 0.9% 100 ML IV SCH (16:22)
[2024-04-07] MEDS: carvediloL 12.5 MG TAB PO SCH (16:23)
[2024-04-07 16:37] LABS: Glucose,Whole Blood 109 mg/dL (70-110)
--- NOTE | 2024-04-07 18:01 | P.PN ---
Progress Note - Text Progress Note Date: 04/07/24 patient is 58-year-old gentleman with past medical his significant for hypertension, hyperlipidemia, diabetes mellitus who presented to the ER because of not feeling well and feeling dizzy. Patient admits to drinking large amounts of alcohol daily. Patient stated that has been not been feeling his usual self for the last few days. Patient states that he has been drinking a lot and has not been eating enough. Patient was complaining of dizziness. There was no complaint of passing out. There was no complaint nausea, vomiting or abdominal pain. There was no current fever or chills at home. Patient denies any diarrhea. Because of the symptoms, patient came to the ER Initial lab work done in the ER showed WBC 5.6, hemoglobin 9.6, platelet count 152, sodium 138, potassium 6.2, carbon oxide 5, BUN 74, creatinine zero 6.26 glucose 122, lactate 2.2, calcium 7.4, AST 131, ALT 74 EKG done in the ER showed heart rate of 82, no ST segment elevation or depression seen, no T-wave inversions seen. Patient admitted to internal medicine service 04/04. Patient seen and examined. Blood work this morning showed WBC 5.6, hemoglobin 8.9, sodium 100, potassium 3.4, BUN 65, creatinine 2.71 April 05: Eating better. Appetite is better. Had a bowel movement. Diarrhea resolved. Making good urine. Last alcohol intake was on Tuesday. Also smoker. Patient had an episode of chest pain and palpitations. Episode of SVT around 5 AM was given adenosine.. Coreg was added by cardiology. Placed on IV heparin. Had a 7 beat V. tach run around 2 PM April 06: The patient this morning. Resting. IV heparin. Farxiga was added yesterday. Seems to leveled off. 1.83 . eating fair. Will increase Coreg to 9 mg, cut back amlodipine to 5 mg April 07: Sitting at the edge of the bed. Having some knee pain. Voltaren gel ordered for the knee pain. Increase activity. Coreg increased to 12.5 twice daily. Amlodipine also was increased to 10 mg by cardiology. Patient today again went into SVT. Active Medications Acetaminophen (Acetaminophen Tab 325 Mg Tab) 650 mg PO Q6HR PRN PRN Reason: Fever and/ or Pain Last Admin: 04/07/24 09:45 Dose: 650 mg Albuterol/Ipratropium (Ipratropium-Albuterol 3 Ml Neb) 3 ml INHALATION RT-TID [facility] Last Admin: 04/07/24 13:19 Dose: 3 ml Amlodipine Besylate (Amlodipine 10 Mg Tab) 10 mg PO DAILY [facility] Aspirin (Aspirin 81 Mg) 81 mg PO DAILY [facility] Last Admin: 04/07/24 09:41 Dose: 81 mg Atorvastatin Calcium (Atorvastatin 40 Mg Tab) 40 mg PO HS [facility] Last Admin: 04/06/24 20:56 Dose: 40 mg Carvedilol (Carvedilol 12.5 Mg Tab) 12.5 mg PO BID-W/MEALS [facility] Last Admin: 04/07/24 16:23 Dose: 12.5 mg Dapagliflozin (Dapagliflozin Propanediol 5 Mg Tablet) 5 mg PO DAILY [facility] Last Admin: 04/07/24 09:41 Dose: 5 mg Dextrose/Water (Dextrose 50% Syringe 50 Ml) 25 ml IVP PER PROTOCOL PRN; Protocol PRN Reason: Hypoglycemia Dextrose/Water (Dextrose 50% Syringe 50 Ml) 50 ml IVP PER PROTOCOL PRN; Protocol PRN Reason: Hypoglycemia Diclofenac Sodium (Diclofenac Sodium Gel 50 Gm Tube) 4 gm TOPICAL TID [facility]; Protocol Last Admin: 04/07/24 16:26 Dose: 4 gm Ergocalciferol (Ergocalciferol 1,250 Mcg (50,000 Iu) Capsule) 1,250 mcg PO Q72H [facility] Last Admin: 04/07/24 13:13 Dose: 1,250 mcg Ferrous Sulfate (Ferrous Sulfate 325 Mg Tab) 325 mg PO DAILY [facility] Last Admin: 04/07/24 09:41 Dose: 325 mg Sodium Chloride (Saline 0.9%) 1,000 mls @ 75 mls/hr IV .[id number] [facility] Last Admin: 04/07/24 16:22 Dose: 75 mls/hr Diltiazem HCl 125 mg/ Sodium (Chloride) 125 mls @ 5 mls/hr IV .Q24H [facility] Last Admin: 04/07/24 16:22 Dose: 5 mg/hr, 5 mls/hr Magnesium Sulfate/Dextrose 1 (gm/ IV Solution) 100 mls @ 100 mls/hr IVPB Q1H [facility]; Protocol Stop: 04/07/24 18:14 Last Admin: 04/07/24 16:22 Dose: 100 mls/hr Insulin Aspart (Insulin Aspart (Novolog) 100 Unit/Ml Vial) 0 unit SQ ACHS [facility]; Protocol Last Admin: 04/07/24 16:49 Dose: Not Given Lorazepam (Lorazepam 2 Mg/Ml Inj) 1 mg IV Q1HR PRN PRN Reason: CIWA 10 to 15 Lorazepam (Lorazepam 2 Mg/Ml Inj) 1 mg IV Q2HR PRN PRN Reason: CIWA 8 or 9 Last Admin: 04/05/24 15:27 Dose: 1 mg Magnesium Oxide (Magnesium Oxide 400 Mg Tab) 400 mg PO TID [facility] Last Admin: 04/07/24 16:23 Dose: 400 mg Miscellaneous Information (Magnesium Replacement Protocol 1 Each Misc) 1 each MISCELLANE DAILY PRN; Protocol PRN Reason: Per Protocol Naloxone HCl (Naloxone 0.4 Mg/Ml 1 Ml Vial) 0.2 mg IV Q2M PRN PRN Reason: Opioid Reversal Nicotine (Nicotine 14mg/24hr Patch) 1 patch TRANSDERM DAILY PRN PRN Reason: Nicotine Cravings Pantoprazole Sodium (Pantoprazole 40 Mg Tablet) 40 mg PO DAILY [facility] Last Admin: 04/07/24 09:41 Dose: 40 mg Social history: Drinking half of pint of alcohol daily. girlfriend Pastora. Smoked a pack and a half for about 40 years. Used to do construction work Physical examination: VITAL SIGNS: 99.3, 98, 16, 143% he 5, 100% room air GENERAL: Sitting at the edge of the bed, EYES: Pupils equal. Conjunctiva normal. HEENT: External appearance of nose and ears normal, oral cavity grossly normal. NECK: JVD not raised; masses not palpable. HEART: First and second heart sounds are normal; no edema. LUNGS: Respiratory rate normal; clear to auscultation. ABDOMEN: Soft, nontender, liver spleen not palpable, no masses palpable. PSYCH: Alert and oriented x3; mood and affect normal. MUSCULOSKELETAL:No Clubbing/cyanosis;muscles-grossly intact INVESTIGATIONS, reviewed in the clinical context: April 07: Potassium 4.4 BUN 34 creatinine 1.93. Troponin I 0.039 April 06: White count 7.8 hemoglobin 8.9 platelets 100 potassium 4.5 BUN 40 creatinine 1.83 April 05: White count 5.3 hemoglobin 8.7 platelets 115 sodium 139 potassium 3.9 B UN 50 creatinine 1.76 magnesium 1.0 AST 84 ALT 51 troponin I 0.137 albumin 2.7 TSH 1.8 2D echocardiogram EF 40 to 45%. Aortic sclerosis Assessment and plan -Acute kidney injury secondary to volume depletion and NSAIDs.: Creatinine seems to have plateaued Admission creatinine 6.26 -Thrombocytopenia due to alcohol liver disease -IV heparin-discontinued -Chronic alcoholic cardiomyopathy systolic dysfunction EF 40 to 45% likely secondary to alcoholism. Possible cardiac catheterization down the road. -Recurrent SVT, uncontrolled episode today: Controlled magnesium Coreg increased to 12.5 twice daily Placed on Cardizem drip -Episode of nonsustained V. tach -Medical asthenia multifactorial - metabolic acidosis due to severe renal and alcohol Received bicarbonate drip -COPD in a current smoker DuoNeb -GERD Protonix -Essential hypertension, amlodipine 10 mg. Coreg increased to 12.5 twice daily . -Hyponatremia from decreased solute intake: Better -Hyperkalemia secondary to renal failure: Better -Acute hepatitis secondary to alcoholism: Better -Alcoholic liver disease/hepatitis -Alcohol use disorder -Hypomagnesemia Replace magnesium Coreg increased to 12.5 twice daily. Episode of SVT today. Put on Cardizem drip
[2024-04-07 20:13] LABS: Glucose,Whole Blood 154 mg/dL (70-110)
[2024-04-08 06:09] LABS: Glucose,Whole Blood 139 mg/dL (70-110)
[2024-04-08] MEDS: amLODIPine 10 MG TAB PO SCH (09:04)
--- NOTE | 2024-04-08 09:13 | P.PN ---
Subjective Progress Note Date: 04/08/24 The patient is a 58-year-old gentleman with a past medical history significant for history of excessive alcohol use and recent diagnosis of cardiomyopathy as well as hypertension and dyslipidemia who was admitted to the hospital with diarrhea and he was diagnosed with acute renal failure. An echo performed and showed cardiomyopathy which is no. He was also in acute renal failure April 07, 2024 The patient was seen and evaluated this morning with he is asymptomatic. He is hemodynamically stable beside the pressure is consistent with stage II hypertension. The initial plan was to perform a heart catheterization but his creatinine is worse today. With that being said we are holding on performing a heart catheterization meanwhile adjust his blood pressure medication and add amlodipine to the current medical regimen. Beside that continue aspirin and beta-raeann. The examination is remarkable for regular rhythm with a systolic murmur and clear breathing sounds bilaterally and no edema was noted April 08, 2024 The patient was seen and evaluated this morning. Yesterday after the round he went into initially narrow complex tachycardia consistent with SVT but subsequently he went into wide-complex tachycardia consistent with either SVT with aberrancy or ventricular tachycardia. The rhythm was terminated by adenosine and likely to be SVT with aberrancy because his initial rhythm was n arrow complex and the rhythm was terminated with adenosine. He was converted to normal sinus mechanism and he remains in sinus mechanism at this point. He is on Cardizem IV which went stop and start the patient on amiodarone IV. Otherwise he is asymptomatic this morning and remains hemodynamically stable. No blood work as of this morning to assess his kidney function and once the kidney function improving need to undergo a heart catheterization to rule out severe underlying coronary artery disease. The examination is remarkable for regular rhythm with a soft systolic murmur and clear breathing sounds bilaterally and no edema was noted in the lower extremities. Assessment History of excessive alcohol use Acute renal failure likely secondary to hypovolemia/diarrhea Recent diagnosis of cardiomyopathy unknown if is ischemic or nonischemic Cardiac arrhythmia with SVT with aberrancy versus VT Hypertension Multiple comorbid conditions Plan Continue the current medical regimen DC Cardizem and start the patient on amiodarone Continue the current medical regimen including aspirin and statin and carvedilol Consider maximize medical treatment for cardiomyopathy including adding MARSHAL or A RB once the kidney function improves Consider proceeding with heart catheterization as well once the kidney function improve Follow-up with the patient Objective - Vital Signs Vital signs: Vital Signs Temp 98.6 F 04/08/24 08:00 Pulse 78 04/08/24 08:00 Resp 18 04/08/24 08:00 BP 114/61 04/08/24 08:00 Pulse Ox 97 04/08/24 08:00 FiO2 Intake & Output 04/07/24 04/08/24 04/08/24 18:59 06:59 18:59 Intake Total 545.599 10 110 Output Total 1100 Balance 545.599 -1090 110 Weight 69.9 kg Intake: IV 10 Invasive Line 4 10 Intake, IV Titration 215.599 Amount Heparin Sod,Pork in 0.45% 215.599 NaCl 25,000 unit In 0.45 % NaCl 1 250ml.bag @ 12 UNITS/KG/HR 8.676 mls/hr IV .Q24H [facility] Rx#: [id number] Oral 330 110 Output: Urine 1100 Other: Voiding Method Bedside Commode Urinal # Voids 1 - Labs CBC & Chem 7: 04/06/24 06:05 04/07/24 06:14 Labs: Abnormal Lab Results - Last 24 Hours (Table) 04/07/24 04/07/24 04/07/24 Range/Units 06:14 12:12 12:36 POC Glucose (mg/dL) 111 H (70-110) mg/dL Magnesium 1.5 L (1.6-2.3) mg/dL Troponin I 0.039 H* (0.000-0.034) ng/mL 04/07/24 04/08/24 Range/Units 20:11 06:08 POC Glucose (mg/dL) 154 H 139 H (70-110) mg/dL Magnesium (1.6-2.3) mg/dL Troponin I (0.000-0.034) ng/mL
[2024-04-08] MEDS: DEXTROSE 5% IN WATER 100 ML with AMIODARONE 150 MG IV ONE (10:32)
[2024-04-08] MEDS: AMIODARONE 360 MG in DEXTROSE 5% IN WATER 200 ML IV ONE (10:56)
[2024-04-08 11:27] LABS: Glucose,Whole Blood 139 mg/dL (70-110)
--- NOTE | 2024-04-08 12:18 | P.PN ---
Progress Note - Text Progress Note Date: 04/08/24 patient is 58-year-old gentleman with past medical his significant for hypertension, hyperlipidemia, diabetes mellitus who presented to the ER because of not feeling well and feeling dizzy. Patient admits to drinking large amounts of alcohol daily. Patient stated that has been not been feeling his usual self for the last few days. Patient states that he has been drinking a lot and has not been eating enough. Patient was complaining of dizziness. There was no complaint of passing out. There was no complaint nausea, vomiting or abdominal pain. There was no current fever or chills at home. Patient denies any diarrhea. Because of the symptoms, patient came to the ER Initial lab work done in the ER showed WBC 5.6, hemoglobin 9.6, platelet count 152, sodium 138, potassium 6.2, carbon oxide 5, BUN 74, creatinine zero 6.26 glucose 122, lactate 2.2, calcium 7.4, AST 131, ALT 74 EKG done in the ER showed heart rate of 82, no ST segment elevation or depression seen, no T-wave inversions seen. Patient admitted to internal medicine service 04/04. Patient seen and examined. Blood work this morning showed WBC 5.6, hemoglobin 8.9, sodium 100, potassium 3.4, BUN 65, creatinine 2.71 April 05: Eating better. Appetite is better. Had a bowel movement. Diarrhea resolved. Making good urine. Last alcohol intake was on Tuesday. Also smoker. Patient had an episode of chest pain and palpitations. Episode of SVT around 5 AM was given adenosine.. Coreg was added by cardiology. Placed on IV heparin. Had a 7 beat V. tach run around 2 PM April 06: The patient this morning. Resting. IV heparin. Farxiga was added yesterday. Seems to leveled off. 1.83 . eating fair. Will increase Coreg to 9 mg, cut back amlodipine to 5 mg April 07: Sitting at the edge of the bed. Having some knee pain. Voltaren gel ordered for the knee pain. Increase activity. Coreg increased to 12.5 twice daily. Amlodipine also was increased to 10 mg by cardiology. Patient today again went into SVT. April 08: Patient did walk about 3 laps yesterday. Some knee pain present. Getting Voltaren gel. Blood pressure is good. On IV amiodarone. Off Cardizem drip. Currently in sinus rhythm. Active Medications Acetaminophen (Acetaminophen Tab 325 Mg Tab) 650 mg PO Q6HR PRN PRN Reason: Fever and/ or Pain Last Admin: 04/08/24 06:18 Dose: 650 mg Albuterol/Ipratropium (Ipratropium-Albuterol 3 Ml Neb) 3 ml INHALATION RT-TID [facility] Last Admin: 04/08/24 09:51 Dose: 3 ml Amlodipine Besylate (Amlodipine 10 Mg Tab) 10 mg PO DAILY [facility] Last Admin: 04/08/24 09:04 Dose: 10 mg Aspirin (Aspirin 81 Mg) 81 mg PO DAILY [facility] Last Admin: 04/08/24 09:04 Dose: 81 mg Atorvastatin Calcium (Atorvastatin 40 Mg Tab) 40 mg PO HS [facility] Last Admin: 04/07/24 20:41 Dose: 40 mg Carvedilol (Carvedilol 12.5 Mg Tab) 12.5 mg PO BID-W/MEALS [facility] Last Admin: 04/08/24 06:18 Dose: 12.5 mg Dapagliflozin (Dapagliflozin Propanediol 5 Mg Tablet) 5 mg PO DAILY [facility] Last Admin: 04/08/24 09:04 Dose: 5 mg Dextrose/Water (Dextrose 50% Syringe 50 Ml) 25 ml IVP PER PROTOCOL PRN; P rotocol PRN Reason: Hypoglycemia Dextrose/Water (Dextrose 50% Syringe 50 Ml) 50 ml IVP PER PROTOCOL PRN; Protocol PRN Reason: Hypoglycemia Diclofenac Sodium (Diclofenac Sodium Gel 50 Gm Tube) 4 gm TOPICAL TID [facility]; Protocol Last Admin: 04/08/24 09:04 Dose: 4 gm Ergocalciferol (Ergocalciferol 1,250 Mcg (50,000 Iu) Capsule) 1,250 mcg PO Q72H [facility] Last Admin: 04/07/24 13:13 Dose: 1,250 mcg Ferrous Sulfate (Ferrous Sulfate 325 Mg Tab) 325 mg PO DAILY [facility] Last Admin: 04/08/24 09:04 Dose: 325 mg Sodium Chloride (Saline 0.9%) 1,000 mls @ 75 mls/hr IV .[id number] [facility] Last Admin: 04/08/24 06:19 Dose: 75 mls/hr Amiodarone HCl 360 mg/ (Dextrose/Water) 200 mls @ 33.333 mls/hr IV .Q6H [facility]; Protocol Stop: 04/08/24 15:39 Last Admin: 04/08/24 10:56 Dose: 1 mg/min, 33.333 mls/hr Amiodarone HCl 450 mg/ (Dextrose/Water) 250 mls @ 16.667 mls/hr IV .Q15H [facility]; Protocol Stop: 04/09/24 09:39 Insulin Aspart (Insulin Aspart (Novolog) 100 Unit/Ml Vial) 0 unit SQ ACHS [facility]; Protocol Last Admin: 04/08/24 06:14 Dose: Not Given Lorazepam (Lorazepam 2 Mg/Ml Inj) 1 mg IV Q1HR PRN PRN Reason: CIWA 10 to 15 Lorazepam (Lorazepam 2 Mg/Ml Inj) 1 mg IV Q2HR PRN PRN Reason: CIWA 8 or 9 Last Admin: 04/05/24 15:27 Dose: 1 mg Magnesium Oxide (Magnesium Oxide 400 Mg Tab) 400 mg PO TID [facility] Last Admin: 04/08/24 09:04 Dose: 400 mg Miscellaneous Information (Magnesium Replacement Protocol 1 Each Misc) 1 each MISCELLANE DAILY PRN; Protocol PRN Reason: Per Protocol Naloxone HCl (Naloxone 0.4 Mg/Ml 1 Ml Vial) 0.2 mg IV Q2M PRN PRN Reason: Opioid Reversal Nicotine (Nicotine 14mg/24hr Patch) 1 patch TRANSDERM DAILY PRN PRN Reason: Nicotine Cravings Pantoprazole Sodium (Pantoprazole 40 Mg Tablet) 40 mg PO DAILY [facility] Last Admin: 04/08/24 09:04 Dose: 40 mg Social history: Drinking half of pint of alcohol daily. girlfriend Pastora. Smoked a pack and a half for about 40 years. Used to do construction work Physical examination: VITAL SIGNS: 98.6, 78, 18, 1 one 4 x 61, 97% room air GENERAL: Laying in bed, comfortable EYES: Pupils equal. Conjunctiva normal. HEENT: External appearance of nose and ears normal, oral cavity grossly normal. NECK: JVD not raised; masses not palpable. HEART: First and second heart sounds are normal; no edema. LUNGS: Respiratory rate normal; clear to auscultation. ABDOMEN: Soft, nontender, liver spleen not palpable, no masses palpable. PSYCH: Alert and oriented x3; mood and affect normal. MUSCULOSKELETAL:No Clubbing/cyanosis;muscles-grossly intact INVESTIGATIONS, reviewed in the clinical context: April 07: Potassium 4.4 BUN 34 creatinine 1.93. Troponin I 0.039 April 06: White count 7.8 hemoglobin 8.9 platelets 100 potassium 4.5 BUN 40 creatinine 1.83 April 05: White count 5.3 hemoglobin 8.7 platelets 115 sodium 139 potassium 3.9 BUN 50 creatinine 1.76 magnesium 1.0 AST 84 ALT 51 troponin I 0.137 albumin 2.7 TSH 1.8 2D echocardiogram EF 40 to 45%. Aortic sclerosis Assessment and plan -Acute kidney injury secondary to volume depletion and NSAIDs.: Creatinine seems to have plateaued Admission creatinine 6.26 -Thrombocytopenia due to alcohol liver disease -IV heparin-discontinued -Chronic alcoholic cardiomyopathy systolic dysfunction EF 40 to 45% likely secondary to alcoholism. Possible cardiac catheterization down the road. -Recurrent SVT, uncontrolled episode today: Controlled magnesium Coreg 12.5 twice daily Placed on IV amiodarone drip -Episode of nonsustained V. tach -Medical asthenia multifactorial - metabolic acidosis due to severe renal and alcohol Received bicarbonate drip -COPD in a current smoker DuoNeb -GERD Protonix -Essential hypertension, amlodipine 10 mg. Coreg increased to 12.5 twice daily . -Hyponatremia from decreased solute intake: Better -Hyperkalemia secondary to renal failure: Better -Acute hepatitis secondary to alcoholism: Better -Alcoholic liver disease/hepatitis -Alcohol use disorder -Hypomagnesemia Replace magnesium -Full code Off Cardizem drip. Placed on IV amiodarone. Discussed
[2024-04-08 13:26] LABS: African American GFR (CKD) 39 (>60 ml/min/1.73 sqM); Anion Gap 4 mmol/L; Blood Urea Nitrogen 33 mg/dL (9-20); Calcium 8.9 mg/dL (8.4-10.2); Carbon Dioxide 26 mmol/L (22-30); Chloride 111 mmol/L (98-107); Glucose 105 mg/dL (74-99); Non-African American GFR(CKD) 34 (>60 ml/min/1.73 sqM); Potassium 4.5 mmol/L (3.5-5.1); Sodium 141 mmol/L (137-145)
--- NOTE | 2024-04-08 13:38 | P.PN ---
Subjective Patient is being seen for follow-up for acute kidney injury and metabolic acidosis. Patient underwent echo on 04/05/2024 which revealed an ejection fraction of 40 to 45%. Tolerating oral intake. No nausea vomiting or diarrhea. No significant complaints today. serum creatinine further increased to 2.0 today. Patient was restarted on IV fluids yesterday. A bladder scan will be repeated to rule out urine retention. Objective - Vital Signs Vital signs: Vital Signs Temp 98.6 F 04/08/24 08:00 Pulse 80 04/08/24 12:00 Resp 18 04/08/24 12:00 BP 129/72 04/08/24 12:00 Pulse Ox 98 04/08/24 12:00 FiO2 Intake & Output 04/07/24 04/08/24 04/08/24 18:59 06:59 18:59 Intake Total 545.599 10 230 Output Total 1100 Balance 545.599 -1090 230 Weight 69.9 kg Intake: IV 10 10 Invasive Line 4 10 10 Intake, IV Titration 215.599 Amount Heparin Sod,Pork in 0.45% 215.599 NaCl 25,000 unit In 0.45 % NaCl 1 250ml.bag @ 12 UNITS/KG/HR 8.676 mls/hr IV .Q24H [facility] Rx#: [id number] Oral 330 220 Output: Urine 1100 Other: Voiding Method Bedside Commode Urinal # Voids 1 - Exam Vital signs are stable. General: No acute distress. HEENT: Head exam is unremarkable. Lungs: Bilateral breath sounds present; no rhonchi, wheezes, or rales. Heart: Rate and rhythm are regular. Abdomen: Nontender. Extremities: No edema present. - Labs CBC & Chem 7: 04/06/24 06:05 04/08/24 12:31 Labs: Abnormal Lab Results - Last 24 Hours (Table) 04/07/24 04/07/24 04/08/24 Range/Units 06:14 20:11 06:08 Chloride (98-107) mmol/L BUN (9-20) mg/dL Creatinine (0.66-1.25) mg/dL Glucose (74-99) mg/dL POC Glucose (mg/dL) 154 H 139 H (70-110) mg/dL Magnesium 1.5 L (1.6-2.3) mg/dL 04/08/24 04/08/24 Range/Units 11:24 12:31 Chloride 111 H (98-107) mmol/L BUN 33 H (9-20) mg/dL Creatinine 2.08 H (0.66-1.25) mg/dL Glucose 105 H (74-99) mg/dL POC Glucose (mg/dL) 139 H (70-110) mg/dL Magnesium (1.6-2.3) mg/dL Assessment and Plan Assessment: 1. Acute kidney injury. Secondary to volume depletion and NSAIDs. No hydr onephrosis seen on ultrasound 04/03/2024. Renal function has improved since admission however serum creatinine seems to be increasing her been slowly post discontinuation of IV fluids. Continue with normal saline and check bladder scan and rule out urine retention. 2. Metabolic acidosis. Anion gap secondary to alcohol, acute kidney injury, resolved. 3. Hypovolemic hyponatremia. Improving. 4. Hyperkalemia. Secondary to acute kidney injury and metabolic acidosis and hyperglycemia. Improved. 5. EtOH abuse. 6. Hypocalcemia. Corrected calcium 04/06/2024 is 9.7. vitamin D deficiency no aayush - vitamin D 16.6 04/03/2024. Maintained on supplementation. Plan: continue IV fluids and check bladder scan and rule out urine retention. Continue magnesium. Maintain Vit D supplementation. Continue antihypertensive medications. Continue to monitor renal function.
[2024-04-08 16:27] LABS: Glucose,Whole Blood 140 mg/dL (70-110)
[2024-04-08] MEDS: AMIODARONE 450 MG in DEXTROSE 5% IN WATER 250 ML IV SCH (17:40)
[2024-04-08 20:31] LABS: Glucose,Whole Blood 138 mg/dL (70-110)
[2024-04-09 06:13] LABS: Glucose,Whole Blood 98 mg/dL (70-110)
[2024-04-09 08:07] LABS: ALT 28 U/L (4-49); AST 37 U/L (17-59); African American GFR (CKD) 41 (>60 ml/min/1.73 sqM); Albumin 2.6 g/dL (3.5-5.0); Alkaline Phosphatase 90 U/L (38-126); Anion Gap 4 mmol/L; Blood Urea Nitrogen 29 mg/dL (9-20); Calcium 8.9 mg/dL (8.4-10.2); Carbon Dioxide 21 mmol/L (22-30); Chloride 116 mmol/L (98-107); Glucose 82 mg/dL (74-99); Non-African American GFR(CKD) 36 (>60 ml/min/1.73 sqM); Potassium 4.5 mmol/L (3.5-5.1); Sodium 141 mmol/L (137-145); Total Bilirubin 0.4 mg/dL (0.2-1.3); Total Protein 4.8 g/dL (6.3-8.2)
--- NOTE | 2024-04-09 10:28 | P.PN ---
Progress Note - Text Progress Note Date: 04/09/24 patient is 58-year-old gentleman with past medical his significant for hypertension, hyperlipidemia, diabetes mellitus who presented to the ER because of not feeling well and feeling dizzy. Patient admits to drinking large amounts of alcohol daily. Patient stated that has been not been feeling his usual self for the last few days. Patient states that he has been drinking a lot and has not been eating enough. Patient was complaining of dizziness. There was no complaint of passing out. There was no complaint nausea, vomiting or abdominal pain. There was no current fever or chills at home. Patient denies any diarrhea. Because of the symptoms, patient came to the ER Initial lab work done in the ER showed WBC 5.6, hemoglobin 9.6, platelet count 152, sodium 138, potassium 6.2, carbon oxide 5, BUN 74, creatinine zero 6.26 glucose 122, lactate 2.2, calcium 7.4, AST 131, ALT 74 EKG done in the ER showed heart rate of 82, no ST segment elevation or depression seen, no T-wave inversions seen. Patient admitted to internal medicine service 04/04. Patient seen and examined. Blood work this morning showed WBC 5.6, hemoglobin 8.9, sodium 100, potassium 3.4, BUN 65, creatinine 2.71 April 05: Eating better. Appetite is better. Had a bowel movement. Diarrhea resolved. Making good urine. Last alcohol intake was on Tuesday. Also smoker. Patient had an episode of chest pain and palpitations. Episode of SVT around 5 AM was given adenosine.. Coreg was added by cardiology. Placed on IV heparin. Had a 7 beat V. tach run around 2 PM April 06: The patient this morning. Resting. IV heparin. Farxiga was added yesterday. Seems to leveled off. 1.83 . eating fair. Will increase Coreg to 9 mg, cut back amlodipine to 5 mg April 07: Sitting at the edge of the bed. Having some knee pain. Voltaren gel ordered for the knee pain. Increase activity. Coreg increased to 12.5 twice daily. Amlodipine also was increased to 10 mg by cardiology. Patient today again went into SVT. April 08: Patient did walk about 3 laps yesterday. Some knee pain present. Getting Voltaren gel. Blood pressure is good. On IV amiodarone. Off Cardizem drip. Currently in sinus rhythm. April 09: Patient remains in normal sinus rhythm. Early this morning heart rate did go up to about 114. Patient is off amiodarone. Creatinine has plateaued off. Active Medications Acetaminophen (Acetaminophen Tab 325 Mg Tab) 650 mg PO Q6HR PRN PRN Reason: Fever and/ or Pain Last Admin: 04/08/24 20:44 Dose: 650 mg Albuterol/Ipratropium (Ipratropium-Albuterol 3 Ml Neb) 3 ml INHALATION RT-TID [facility] Last Admin: 04/09/24 08:25 Dose: 3 ml Amlodipine Besylate (Amlodipine 10 Mg Tab) 10 mg PO DAILY [facility] Last Admin: 04/09/24 09:18 Dose: 10 mg Aspirin (Aspirin 81 Mg) 81 mg PO DAILY [facility] Last Admin: 04/09/24 09:18 Dose: 81 mg Atorvastatin Calcium (Atorvastatin 40 Mg Tab) 40 mg PO HS [facility] Last Admin: 04/08/24 20:40 Dose: 40 mg Carvedilol (Carvedilol 12.5 Mg Tab) 12.5 mg PO BID-W/MEALS [facility] Last Admin: 04/09/24 06:38 Dose: 12.5 mg Dapagliflozin (Dapagliflozin Propanediol 5 Mg Tablet) 5 mg PO DAILY [facility] Last Admin: 04/09/24 09:17 Dose: 5 mg Dextrose/Water (Dextrose 50% Syringe 50 Ml) 25 ml IVP PER PROTOCOL PRN; Protocol PRN Reason: Hypoglycemia Dextrose/Water (Dextrose 50% Syringe 50 Ml) 50 ml IVP PER PROTOCOL PRN; Protocol PRN Reason: Hypoglycemia Diclofenac Sodium (Diclofenac Sodium Gel 50 Gm Tube) 4 gm TOPICAL TID [facility]; Protocol Last Admin: 04/08/24 20:41 Dose: 4 gm Ergocalciferol (Ergocalciferol 1,250 Mcg (50,000 Iu) Capsule) 1,250 mcg PO Q72H [facility] Last Admin: 04/07/24 13:13 Dose: 1,250 mcg Ferrous Sulfate (Ferrous Sulfate 325 Mg Tab) 325 mg PO DAILY [facility] Last Admin: 04/09/24 09:17 Dose: 325 mg Sodium Chloride (Saline 0.9%) 1,000 mls @ 75 mls/hr IV .[id number] [facility] Last Admin: 04/09/24 06:40 Dose: Not Given Insulin Aspart (Insulin Aspart (Novolog) 100 Unit/Ml Vial) 0 unit SQ ACHS [facility]; Protocol Last Admin: 04/09/24 06:27 Dose: Not Given Lorazepam (Lorazepam 2 Mg/Ml Inj) 1 mg IV Q1HR PRN PRN Reason: CIWA 10 to 15 Lorazepam (Lorazepam 2 Mg/Ml Inj) 1 mg IV Q2HR PRN PRN Reason: CIWA 8 or 9 Last Admin: 04/05/24 15:27 Dose: 1 mg Magnesium Oxide (Magnesium Oxide 400 Mg Tab) 400 mg PO TID [facility] Last Admin: 04/09/24 09:18 Dose: 400 mg Miscellaneous Information (Magnesium Replacement Protocol 1 Each Misc) 1 each MISCELLANE DAILY PRN; Protocol PRN Reason: Per Protocol Naloxone HCl (Naloxone 0.4 Mg/Ml 1 Ml Vial) 0.2 mg IV Q2M PRN PRN Reason: Opioid Reversal Nicotine (Nicotine 14mg/24hr Patch) 1 patch TRANSDERM DAILY PRN PRN Reason: Nicotine Cravings Pantoprazole Sodium (Pantoprazole 40 Mg Tablet) 40 mg PO DAILY [facility] Last Admin: 04/09/24 09:17 Dose: 40 mg Social history: Drinking half of pint of alcohol daily. girlfriend Pastora. Smoked a pack and a half for about 40 years. Used to do construction work Physical examination: VITAL SIGNS: 99.3, 81, 16, 172 x 79, 98% room air GENERAL: Propped up in bed, comfortable EYES: Pupils equal. Conjunctiva normal. HEENT: External appearance of nose and ears normal, oral cavity grossly normal. NECK: JVD not raised; masses not palpable. HEART: First and second heart sounds are normal; no edema. LUNGS: Respiratory rate normal; clear to auscultation. ABDOMEN: Soft, nontender, liver spleen not palpable, no masses palpable. PSYCH: Alert and oriented x3; mood and affect normal. MUSCULOSKELETAL:No Clubbing/cyanosis;muscles-grossly intact INVESTIGATIONS, reviewed in the clinical context: April 09: Potassium 4.5 BUN 29 creatinine 1.98 April 07: Potassium 4.4 BUN 34 creatinine 1.93. Troponin I 0.039 April 06: White count 7.8 hemoglobin 8.9 platelets 100 potassium 4.5 BUN 40 creatinine 1.83 April 05: White count 5.3 hemoglobin 8.7 platelets 115 sodium 139 potassium 3.9 BUN 50 creatinine 1.76 magnesium 1.0 AST 84 ALT 51 troponin I 0.137 albumin 2.7 TSH 1.8 2D echocardiogram EF 40 to 45%. Aortic sclerosis Assessment and plan -Acute kidney injury secondary to volume depletion and NSAIDs.: Creatinine has plateaued Admission creatinine 6.26. 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 Possible cardiac catheterization at some point -Recurrent SVT,: Now in sinus rhythm magnesium Coreg 12.5 twice daily Received IV amiodarone drip -Episode of nonsustained V. tach -Medical asthenia multifactorial - metabolic acidosis due to severe renal and alcohol Received bicarbonate drip -COPD in a current smoker DuoNeb -GERD Protonix -Essential hypertension, amlodipine 10 mg. Coreg increased to 12.5 twice daily . -Hyponatremia from decreased solute intake: Better -Hyperkalemia secondary to renal failure: Better -Acute hepatitis secondary to alcoholism: Better -Alcoholic liver disease/hepatitis -Alcohol use disorder -Hypomagnesemia Replace magnesium -Full code Of amiodarone drip. Cardiology is thinking about cardiac catheterization. Medications to continue.
[2024-04-09 11:26] LABS: Glucose,Whole Blood 92 mg/dL (70-110)
[2024-04-09] MEDS: AMIODARONE 200 MG TAB PO SCH (12:28)
--- NOTE | 2024-04-09 12:29 | P.PN ---
Subjective Progress Note Date: 04/09/24 Patient is being seen for follow-up for acute kidney injury and metabolic acidosis. Patient underwent echo on 04/05/2024 which revealed an ejection fraction of 40 to 45%. Tolerating oral intake. No nausea vomiting or diarrhea. No significant complaints today. Serum creatinine remains elevated at 1.98 today. Patient is maintained on IV fluids. Bladder scan did not reveal urinary retention. Objective - Vital Signs Vital signs: Vital Signs Temp 99.3 F 04/09/24 04:00 Pulse 88 04/09/24 04:00 Resp 18 04/09/24 04:00 BP 164/82 04/09/24 04:00 Pulse Ox 98 04/09/24 04:00 FiO2 Intake & Output 04/08/24 04/09/24 04/09/24 18:59 06:59 18:59 Intake Total 480 20 Output Total 300 Balance 480 -280 Weight 70.2 kg Intake: IV 20 20 Invasive Line 4 20 20 Oral 460 Output: Urine 300 Other: Voiding Method Bedside Commode Urinal - Exam Vital signs are stable. General: No acute distress. HEENT: Head exam is unremarkable. Lungs: Bilateral breath sounds present; no rhonchi, wheezes, or rales. Heart: Rate and rhythm are regular. Abdomen: Nontender. Extremities: No edema present. - Labs CBC & Chem 7: 04/06/24 06:05 04/09/24 06:28 Labs: Abnormal Lab Results - Last 24 Hours (Table) 04/08/24 04/08/24 04/08/24 Range/Units 11:24 12:31 16:25 Chloride 111 H (98-107) mmol/L Carbon Dioxide (22-30) mmol/L BUN 33 H (9-20) mg/dL Creatinine 2.08 H (0.66-1.25) mg/dL Glucose 105 H (74-99) mg/dL POC Glucose (mg/dL) 139 H 140 H (70-110) mg/dL Total Protein (6.3-8.2) g/dL Albumin (3.5-5.0) g/dL 04/08/24 04/09/24 Range/Units 20:30 06:28 Chloride 116 H (98-107) mmol/L Carbon Dioxide 21 L (22-30) mmol/L BUN 29 H (9-20) mg/dL Creatinine 1.98 H (0.66-1.25) mg/dL Glucose (74-99) mg/dL POC Glucose (mg/dL) 138 H (70-110) mg/dL Total Protein 4.8 L (6.3-8.2) g/dL Albumin 2.6 L (3.5-5.0) g/dL Assessment and Plan Assessment: 1. Acute kidney injury. Secondary to volume depletion and NSAIDs. No hydronephrosis seen on ultrasound 04/03/2024. Renal function has improved since admission however serum creatinine seems to be increasing slowly post discontinuation of IV fluids. Continue with normal saline. Bladder scan does not reveal urinary retention. 2. Metabolic acidosis. Anion gap secondary to alcohol, acute kidney injury. Improving. 3. Hypovolemic hyponatremia. Improving. 4. Hyperkalemia. Secondary to acute kidney injury and metabolic acidosis. Improved. 5. EtOH abuse. 6. Hypocalcemia. Corrected calcium 04/06/2024 is 9.7. Vitamin D deficiency noted - vitamin D 16.6 04/03/2024. Maintained on supplementation. Plan: Continue IV fluids. Continue vitamin D supplementation. Continue antihypertensive medications. Continue to monitor renal function. Repeat labs in the morning. Patient is seen and examined with the resident. Agree with findings assessment and plan.
[2024-04-09 16:53] LABS: Glucose,Whole Blood 119 mg/dL (70-110)
[2024-04-09 20:04] LABS: Glucose,Whole Blood 137 mg/dL (70-110)
[2024-04-10 05:52] LABS: Glucose,Whole Blood 121 mg/dL (70-110)
[2024-04-10 11:36] LABS: Glucose,Whole Blood 120 mg/dL (70-110)
[2024-04-10 11:42] LABS: Potassium 4.4 mmol/L (3.5-5.1)
[2024-04-10 11:44] LABS: African American GFR (CKD) 40 (>60 ml/min/1.73 sqM); Anion Gap 7 mmol/L; Blood Urea Nitrogen 33 mg/dL (9-20); Calcium 8.9 mg/dL (8.4-10.2); Carbon Dioxide 19 mmol/L (22-30); Chloride 117 mmol/L (98-107); Glucose 95 mg/dL (74-99); Non-African American GFR(CKD) 35 (>60 ml/min/1.73 sqM); Sodium 143 mmol/L (137-145)
--- NOTE | 2024-04-10 12:56 | P.PN ---
Subjective Progress Note Date: 04/10/24 Patient is being seen for follow-up for acute kidney injury and metabolic acidosis. Patient underwent echo on 04/05/2024 which revealed an ejection fraction of 40 to 45%. No nausea vomiting or diarrhea. No significant complaints today. Serum creatinine 2.03 today. This may be his baseline renal function. Patient is maintained on IV fluids. Objective - Vital Signs Vital signs: Vital Signs Temp 97.6 F 04/09/24 20:00 Pulse 82 04/10/24 04:00 Resp 16 04/10/24 04:00 BP 154/79 04/10/24 04:00 Pulse Ox 98 04/10/24 04:00 FiO2 Intake & Output 04/09/24 04/10/24 04/10/24 18:59 06:59 18:59 Intake Total 242 20 Output Total 1000 425 Balance -758 -405 Weight 69.9 kg Intake: IV 20 20 Invasive Line 4 20 20 Oral 222 Output: Urine 1000 425 Other: Voiding Method Bedside Commode Bedside Commode Urinal Urinal - Exam Vital signs are stable. General: No acute distress. HEENT: Head exam is unremarkable. Lungs: Bilateral breath sounds present; no rhonchi, wheezes, or rales. Heart: Rate and rhythm are regular. Abdomen: Nontender. Extremities: Left foot 1+ edema present. - Labs CBC & Chem 7: 04/06/24 06:05 04/10/24 11:11 Labs: Abnormal Lab Results - Last 24 Hours (Table) 04/09/24 04/09/24 04/10/24 Range/Units 16:50 20:03 05:51 POC Glucose (mg/dL) 119 H 137 H 121 H (70-110) mg/dL Assessment and Plan Assessment: 1. Acute kidney injury. Secondary to volume depletion and NSAIDs. No hydronephrosis seen on ultrasound 04/03/2024. Renal function has improved since admission however serum creatinine seems to be increasing slowly post discontinuation of IV fluids. Continue with normal saline. Bladder scan does not reveal urinary retention. 2. Metabolic acidosis. Anion gap secondary to alcohol, acute kidney injury. Improved. 3. Hypovolemic hyponatremia. Improved. 4. Hyperkalemia. Secondary to acute kidney injury and metabolic acidosis. Improved. 5. EtOH abuse. 6. Hypocalcemia. Corrected calcium 04/06/2024 is 9.7. Vitamin D deficiency noted - vitamin D 16.6 04/03/2024. Maintained on supplementation. Plan: Continue IV fluids. Decrease rate Continue vitamin D supplementation. Continue antihypertensive medications. Continue to monitor renal function. Repeat labs in the morning.
--- NOTE | 2024-04-10 13:40 | P.PN ---
Subjective Progress Note Date: 04/09/24 The patient is a 58-year-old gentleman with a past medical history significant for history of excessive alcohol use and recent diagnosis of cardiomyopathy as well as hypertension and dyslipidemia who was admitted to the hospital with diarrhea and he was diagnosed with acute renal failure. An echo performed and showed cardiomyopathy which is no. He was also in acute renal failure April 07, 2024 The patient was seen and evaluated this morning with he is asymptomatic. He is hemodynamically stable beside the pressure is consistent with stage II hypertension. The initial plan was to perform a heart catheterization but his creatinine is worse today. With that being said we are holding on performing a heart catheterization meanwhile adjust his blood pressure medication and add amlodipine to the current medical regimen. Beside that continue aspirin and beta-raeann. The examination is remarkable for regular rhythm with a systolic murmur and clear breathing sounds bilaterally and no edema was noted April 08, 2024 The patient was seen and evaluated this morning. Yesterday after the round he went into initially narrow complex tachycardia consistent with SVT but subsequently he went into wide-complex tachycardia consistent with either SVT with aberrancy or ventricular tachycardia. The rhythm was terminated by adenosine and likely to be SVT with aberrancy because his initial rhythm was narrow complex and the rhythm was terminated with adenosine. He was converted to normal sinus mechanism and he remains in sinus mechanism at this point. He is on Cardizem IV which went stop and start the patient on amiodarone IV. Otherwise he is asymptomatic this morning and remains hemodynamically stable. No blood work as of this morning to assess his kidney function and once the kidney function improving need to undergo a heart catheterization to rule out severe underlying coronary artery disease. The examination is remarkable for regular rhythm with a soft systolic murmur and clear breathing sounds bilaterally and no edema was noted in the lower extremities. April 09, 2024 Patient is evaluated this morning. Patient's creatinine is 1.9. Has been stable for last 24 hours No further arrhythmias noticed on telemetry. Denies any chest pain chest pressure. Appears euvolemic Denied any alcohol withdrawal symptoms at this time On exam regular pulses, no significant murmurs appreciated Lungs are clear to auscultate No focal neurological deficit Abdomen is nondistended Assessment History of excessive alcohol use Acute renal failure likely secondary to hypovolemia/diarrhea Recent diagnosis of cardiomyopathy unknown if is ischemic or nonischemic Cardiac arrhythmia with SVT with aberrancy versus VT Hypertension Multiple comorbid conditions Plan Continue the current medical regimen DC Cardizem and start the patient on amiodarone Continue the current medical regimen including aspirin and statin and carvedilol Consider maximize medical treatment for cardiomyopathy including adding MARSHAL or ARB once the kidney function improves Consider proceeding with heart catheterization as well once the kidney function improve Follow-up with the patient Objective - Vital Signs Vital signs: Vital Signs Temp 97.6 F 04/09/24 20:00 Pulse 69 04/10/24 11:44 Resp 16 04/10/24 11:44 BP 135/67 04/10/24 11:44 Pulse Ox 100 04/10/24 11:44 FiO2 Intake & Output 04/09/24 04/10/24 04/10/24 18:59 06:59 18:59 Intake Total 242 20 138 Output Total 1000 425 Balance -758 -405 138 Weight 69.9 kg Intake: IV 20 20 20 Invasive Line 4 20 20 20 Oral 222 118 Output: Urine 1000 425 Other: Voiding Method Bedside Commode Bedside Commode Bedside Commode Urinal Urinal Urinal - Labs CBC & Chem 7: 04/06/24 06:05 04/10/24 11:11 Labs: Abnormal Lab Results - Last 24 Hours (Table) 04/09/24 04/09/24 04/10/24 Range/Units 16:50 20:03 05:51 Chloride (98-107) mmol/L Carbon Dioxide (22-30) mmol/L BUN (9-20) mg/dL Creatinine (0.66-1.25) mg/dL POC Glucose (mg/dL) 119 H 137 H 121 H (70-110) mg/dL 04/10/24 04/10/24 Range/Units 11:11 11:34 Chloride 117 H (98-107) mmol/L Carbon Dioxide 19 L (22-30) mmol/L BUN 33 H (9-20) mg/dL Creatinine 2.03 H (0.66-1.25) mg/dL POC Glucose (mg/dL) 120 H (70-110) mg/dL
[2024-04-10 14:29] VITALS: BMI 23.4
[2024-04-10] MEDS ORDERED: ALPRAZolam 0.25 MG TAB PO PRN (14:41)
--- NOTE | 2024-04-10 14:41 | P.PN ---
Subjective Progress Note Date: 04/10/24 The patient is a 58-year-old gentleman with a past medical history significant for history of excessive alcohol use and recent diagnosis of cardiomyopathy as well as hypertension and dyslipidemia who was admitted to the hospital with diarrhea and he was diagnosed with acute renal failure. An echo performed and showed cardiomyopathy which is no. He was also in acute renal failure April 07, 2024 The patient was seen and evaluated this morning with he is asymptomatic. He is hemodynamically stable beside the pressure is consistent with stage II hypertension. The initial plan was to perform a heart catheterization but his creatinine is worse today. With that being said we are holding on performing a heart catheterization meanwhile adjust his blood pressure medication and add amlodipine to the current medical regimen. Beside that continue aspirin and beta-raeann. The examination is remarkable for regular rhythm with a systolic murmur and clear breathing sounds bilaterally and no edema was noted April 08, 2024 The patient was seen and evaluated this morning. Yesterday after the round he went into initially narrow complex tachycardia consistent with SVT but subsequently he went into wide-complex tachycardia consistent with either SVT with aberrancy or ventricular tachycardia. The rhythm was terminated by adenosine and likely to be SVT with aberrancy because his initial rhythm was narrow complex and the rhythm was terminated with adenosine. He was converted to normal sinus mechanism and he remains in sinus mechanism at this point. He is on Cardizem IV which went stop and start the patient on amiodarone IV. Otherwise he is asymptomatic this morning and remains hemodynamically stable. No blood work as of this morning to assess his kidney function and once the kidney function improving need to undergo a heart catheterization to rule out severe underlying coronary artery disease. The examination is remarkable for regular rhythm with a soft systolic murmur and clear breathing sounds bilaterally and no edema was noted in the lower extremities. April 09, 2024 Patient is evaluated this morning. Patient's creatinine is 1.9. Has been stable for last 24 hours No further arrhythmias noticed on telemetry. Denies any chest pain chest pressure. Appears euvolemic Denied any alcohol withdrawal symptoms at this time April 10, 2024 Patient is seen and examined at bedside this a.m. Patient creatinine is 2. It appears that this is the new baseline for the patient's creatinine and renal function. Good urine output On exam regular pulses, no significant murmurs appreciated Lungs are clear to auscultate No focal neurological deficit Abdomen is nondistended Assessment History of excessive alcohol use Acute renal failure likely secondary to hypovolemia/diarrhea Recent diagnosis of cardiomyopathy LVEF 40% unknown if is ischemic or nonischemic Cardiac arrhythmia with SVT with aberrancy versus VT Hypertension Multiple comorbid conditions Plan Continue aspirin, statin, Coreg Continue amiodarone 4 mg twice daily Added Farxiga 10 mg for GDMT. Will not be able to add Aldactone or ARB at this point because of labile kidney function Patient has not had any other arrhythmias on telemetry monitoring Plan for cardiac catheterization tomorrow with Dr. Lyles Objective - Vital Signs Vital signs: Vital Signs Temp 97.6 F 04/09/24 20:00 Pulse 69 04/10/24 11:44 Resp 16 04/10/24 11:44 BP 135/67 04/10/24 11:44 Pulse Ox 100 04/10/24 11:44 FiO2 Intake & Output 04/09/24 04/10/24 04/10/24 18:59 06:59 18:59 Intake Total 242 20 138 Output Total 1000 425 Balance -758 -405 138 Weight 69.9 kg Intake: IV 20 20 20 Invasive Line 4 20 20 20 Oral 222 118 Output: Urine 1000 425 Other: Voiding Method Bedside Commode Bedside Commode Bedside Commode Urinal Urinal Urinal - Labs CBC & Chem 7: 04/06/24 06:05 04/10/24 11:11 Labs: Abnormal Lab Results - Last 24 Hours (Table) 04/09/24 04/09/24 04/10/24 Range/Units 16:50 20:03 05:51 Chloride (98-107) mmol/L Carbon Dioxide (22-30) mmol/L BUN (9-20) mg/dL Creatinine (0.66-1.25) mg/dL POC Glucose (mg/dL) 119 H 137 H 121 H (70-110) mg/dL 04/10/24 04/10/24 Range/Units 11:11 11:34 Chloride 117 H (98-107) mmol/L Carbon Dioxide 19 L (22-30) mmol/L BUN 33 H (9-20) mg/dL Creatinine 2.03 H (0.66-1.25) mg/dL POC Glucose (mg/dL) 120 H (70-110) mg/dL
[2024-04-10] MEDS: DAPAGLIFLOZIN PROPANEDIOL 10 MG TABLET PO SCH (15:58)
[2024-04-10 16:31] LABS: Glucose,Whole Blood 96 mg/dL (70-110)
--- NOTE | 2024-04-10 17:49 | P.PN ---
Progress Note - Text Progress Note Date: 04/10/24 patient is 58-year-old gentleman with past medical his significant for hypertension, hyperlipidemia, diabetes mellitus who presented to the ER because of not feeling well and feeling dizzy. Patient admits to drinking large amounts of alcohol daily. Patient stated that has been not been feeling his usual self for the last few days. Patient states that he has been drinking a lot and has not been eating enough. Patient was complaining of dizziness. There was no complaint of passing out. There was no complaint nausea, vomiting or abdominal pain. There was no current fever or chills at home. Patient denies any diarrhea. Because of the symptoms, patient came to the ER Initial lab work done in the ER showed WBC 5.6, hemoglobin 9.6, platelet count 152, sodium 138, potassium 6.2, carbon oxide 5, BUN 74, creatinine zero 6.26 glucose 122, lactate 2.2, calcium 7.4, AST 131, ALT 74 EKG done in the ER showed heart rate of 82, no ST segment elevation or depression seen, no T-wave inversions seen. Patient admitted to internal medicine service 04/04. Patient seen and examined. Blood work this morning showed WBC 5.6, hemoglobin 8.9, sodium 100, potassium 3.4, BUN 65, creatinine 2.71 April 05: Eating better. Appetite is better. Had a bowel movement. Diarrhea resolved. Making good urine. Last alcohol intake was on Tuesday. Also smoker. Patient had an episode of chest pain and palpitations. Episode of SVT around 5 AM was given adenosine.. Coreg was added by cardiology. Placed on IV heparin. Had a 7 beat V. tach run around 2 PM April 06: The patient this morning. Resting. IV heparin. Farxiga was added yesterday. Seems to leveled off. 1.83 . eating fair. Will increase Coreg to 9 mg, cut back amlodipine to 5 mg April 07: Sitting at the edge of the bed. Having some knee pain. Voltaren gel ordered for the knee pain. Increase activity. Coreg increased to 12.5 twice daily. Amlodipine also was increased to 10 mg by cardiology. Patient today again went into SVT. April 08: Patient did walk about 3 laps yesterday. Some knee pain present. Getting Voltaren gel. Blood pressure is good. On IV amiodarone. Off Cardizem drip. Currently in sinus rhythm. April 09: Patient remains in normal sinus rhythm. Early this morning heart rate did go up to about 114. Patient is off amiodarone. Creatinine has plateaued off. April 10: Some flareup of arthritis in the left ankle from walking. Voltaren gel and Maykel wrap. Patient due for cardiac catheterization tomorrow. Cardiology is aware about creatinine 2.03. Nephrology following. Delete that Active Medications Acetaminophen (Acetaminophen Tab 325 Mg Tab) 650 mg PO Q6HR PRN PRN Reason: Fever and/ or Pain Last Admin: 04/10/24 05:27 Dose: 650 mg Albuterol/Ipratropium (Ipratropium-Albuterol 3 Ml Neb) 3 ml INHALATION RT-TID [facility] Last Admin: 04/10/24 16:14 Dose: 3 ml Alprazolam (Alprazolam 0.25 Mg Tab) 0.25 mg PO Q6HR PRN PRN Reason: Mild Anxiety Amiodarone HCl (Amiodarone 200 Mg Tab) 400 mg PO BID [facility] Last Admin: 04/10/24 08:53 Dose: 400 mg Amlodipine Besylate (Amlodipine 10 Mg Tab) 10 mg PO DAILY [facility] Last Admin: 04/10/24 08:53 Dose: 10 mg Aspirin (Aspirin 81 Mg) 81 mg PO DAILY [facility] Last Admin: 04/10/24 08:53 Dose: 81 mg Atorvastatin Calcium (Atorvastatin 40 Mg Tab) 40 mg PO HS [facility] Last Admin: 04/09/24 20:31 Dose: 40 mg Carvedilol (Carvedilol 12.5 Mg Tab) 12.5 mg PO BID-W/MEALS [facility] Last Admin: 04/10/24 15:52 Dose: 12.5 mg Dapagliflozin (Dapagliflozin Propanediol 10 Mg Tablet) 10 mg PO DAILY [facility] Last Admin: 04/10/24 15:58 Dose: 10 mg Dextrose/Water (Dextrose 50% Syringe 50 Ml) 25 ml IVP PER PROTOCOL PRN; Protocol PRN Reason: Hypoglycemia Dextrose/Water (Dextrose 50% Syringe 50 Ml) 50 ml IVP PER PROTOCOL PRN; Protocol PRN Reason: Hypoglycemia Diclofenac Sodium (Diclofenac Sodium Gel 50 Gm Tube) 4 gm TOPICAL TID [facility]; Protocol Last Admin: 04/10/24 15:58 Dose: 4 gm Ergocalciferol (Ergocalciferol 1,250 Mcg (50,000 Iu) Capsule) 1,250 mcg PO Q72H [facility] Last Admin: 04/10/24 08:53 Dose: 1,250 mcg Ferrous Sulfate (Ferrous Sulfate 325 Mg Tab) 325 mg PO DAILY [facility] Last Admin: 04/10/24 08:53 Dose: 325 mg Sodium Chloride (Saline 0.9%) 1,000 mls @ 50 mls/hr IV .Q20H [facility] Last Admin: 04/10/24 15:52 Dose: 50 mls/hr Heparin Sodium (Porcine) 10, (000 unit/ Sodium Chloride) 1,001 mls @ 999 mls/hr IRRIGATION ONCE PRN PRN Reason: INTRA-OP Stop: 04/11/24 23:00 Heparin Sodium (Porcine) 2,500 (unit/ Sodium Chloride) 250.5 mls @ 250 mls/hr IRRIGATION ONCE PRN PRN Reason: INTRA-OP Stop: 04/11/24 23:00 Sodium Chloride 1,000 ml/ IV (Solution) 1,000 mls @ 75 mls/hr IV .[id number] [facility] Insulin Aspart (Insulin Aspart (Novolog) 100 Unit/Ml Vial) 0 unit SQ ACHS [facility]; Protocol Last Admin: 04/10/24 17:43 Dose: Not Given Lorazepam (Lorazepam 2 Mg/Ml Inj) 1 mg IV Q1HR PRN PRN Reason: CIWA 10 to 15 Lorazepam (Lorazepam 2 Mg/Ml Inj) 1 mg IV Q2HR PRN PRN Reason: CIWA 8 or 9 Last Admin: 04/05/24 15:27 Dose: 1 mg Magnesium Oxide (Magnesium Oxide 400 Mg Tab) 400 mg PO TID [facility] Last Admin: 04/10/24 17:43 Dose: Not Given Miscellaneous Information (Magnesium Replacement Protocol 1 Each Misc) 1 each MISCELLANE DAILY PRN; Protocol PRN Reason: Per Protocol Naloxone HCl (Naloxone 0.4 Mg/Ml 1 Ml Vial) 0.2 mg IV Q2M PRN PRN Reason: Opioid Reversal Nicotine (Nicotine 14mg/24hr Patch) 1 patch TRANSDERM DAILY PRN PRN Reason: Nicotine Cravings Pantoprazole Sodium (Pantoprazole 40 Mg Tablet) 40 mg PO DAILY [facility] Last Admin: 04/10/24 08:53 Dose: 40 mg Social history: Drinking half of pint of alcohol daily. girlfriend Pastora. Smoked a pack and a half for about 40 years. Used to do construction work Physical examination: VITAL SIGNS: Afebrile, 80, 16, 146/76, 97% room air GENERAL: Sitting up comfortable EYES: Pupils equal. Conjunctiva normal. HEENT: External appearance of nose and ears normal, oral cavity grossly normal. NECK: JVD not raised; masses not palpable. HEART: First and second heart sounds are normal; no edema. LUNGS: Respiratory rate normal; clear to auscultation. ABDOMEN: Soft, nontender, liver spleen not palpable, no masses palpable. PSYCH: Alert and oriented x3; mood and affect normal. MUSCULOSKELETAL:No Clubbing/cyanosis;muscles-grossly intact. Some swelling around the left ankle. Mild tenderness no redness INVESTIGATIONS, reviewed in the clinical context: April 10: Potassium 4.4 creatinine 2.03 April 09: Potassium 4.5 BUN 29 creatinine 1.98 April 07: Potassium 4.4 BUN 34 creatinine 1.93. Troponin I 0.039 April 06: White count 7.8 hemoglobin 8.9 platelets 100 potassium 4.5 BUN 40 creatinine 1.83 April 05: White count 5.3 hemoglobin 8.7 platelets 115 sodium 139 potassium 3.9 BUN 50 creatinine 1.76 magnesium 1.0 AST 84 ALT 51 troponin I 0.137 albumin 2.7 TSH 1.8 2D echocardiogram EF 40 to 45%. Aortic sclerosis Assessment and plan -Acute kidney injury secondary to volume depletion and NSAIDs.: Creatinine has plateaued Admission creatinine 6.26. 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 For cardiac catheterization tomorrow-rule out ischemic cause -Recurrent SVT,: Now in sinus rhythm magnesium Coreg 12.5 twice daily Received IV amiodarone drip -Episode of nonsustained V. tach -Left ankle arthritis. Topical Voltaren gel. Maykel wrap -Medical asthenia multifactorial - metabolic acidosis due to severe renal and alcohol Received bicarbonate drip -COPD in a current smoker DuoNeb -GERD Protonix -Essential hypertension, amlodipine 10 mg. Coreg increased to 12.5 twice daily . -Hyponatremia from decreased solute intake: Better -Hyperkalemia secondary to renal failure: Better -Acute hepatitis secondary to alcoholism: Better -Alcoholic liver disease/hepatitis -Alcohol use disorder -Hypomagnesemia Replace magnesium -Full code For cardiac catheterization tomorrow
[2024-04-10 20:23] LABS: Glucose,Whole Blood 126 mg/dL (70-110)
[2024-04-11] MEDS: SODIUM CHLORIDE 0.9% 1,000 ML in EMPTY BAG 1 BAG IV SCH (03:22)
[2024-04-11 06:10] LABS: Glucose,Whole Blood 106 mg/dL (70-110)
[2024-04-11] MEDS ORDERED: HEPARIN SODIUM,PORCINE 10,000 UNIT in SODIUM CHLORIDE 0.9% 1,000 ML IRRIGATION PRN (07:00)
[2024-04-11] MEDS ORDERED: HEPARIN SODIUM,PORCINE (1 ML) 2,500 UNIT in SODIUM CHLORIDE 0.9% 250 ML IRRIGATION PRN (07:00)
[2024-04-11] MEDS: ASPIRIN 325 MG TAB PO STA (08:25)
[2024-04-11] MEDS: ATORVASTATIN 80 MG TAB PO STA (08:26)
[2024-04-11 09:46] LABS: African American GFR (CKD) 39 (>60 ml/min/1.73 sqM); Anion Gap 8 mmol/L; Blood Urea Nitrogen 33 mg/dL (9-20); Calcium 9.4 mg/dL (8.4-10.2); Carbon Dioxide 16 mmol/L (22-30); Chloride 119 mmol/L (98-107); Glucose 93 mg/dL (74-99); Magnesium 1.5 mg/dL (1.6-2.3); Non-African American GFR(CKD) 34 (>60 ml/min/1.73 sqM); Potassium 4.6 mmol/L (3.5-5.1); Sodium 143 mmol/L (137-145)
[2024-04-11 11:42] LABS: Glucose,Whole Blood 132 mg/dL (70-110)
--- NOTE | 2024-04-11 12:44 | P.PN ---
Subjective Patient is being seen for follow-up for acute kidney injury and metabolic acidosis. Patient underwent echo on 04/05/2024 which revealed an ejection fraction of 40 to 45%. No nausea vomiting or diarrhea. No significant complaints today. Serum creatinine 2.0 today. This may be his baseline renal function. Patient is maintained on IV fluids. scheduled for cardiac catheterization later on today. Objective - Vital Signs Vital signs: Vital Signs Temp 98.1 F 04/11/24 11:23 Pulse 80 04/11/24 12:03 Resp 17 04/11/24 11:23 BP 147/84 04/11/24 11:23 Pulse Ox 99 04/11/24 11:23 FiO2 Intake & Output 04/10/24 04/11/24 04/11/24 18:59 06:59 18:59 Intake Total 374 20 10 Output Total 800 750 Balance -426 -730 10 Weight 69.9 kg 69.5 kg Intake: IV 20 20 10 Invasive Line 4 20 20 10 Oral 354 Output: Urine 800 750 Other: Voiding Method Bedside Commode Bedside Commode Bedside Commode Urinal Urinal Urinal # Voids 2 - Exam Vital signs are stable. General: No acute distress. HEENT: Head exam is unremarkable. Lungs: Bilateral breath sounds present; no rhonchi, wheezes, or rales. Heart: Rate and rhythm are regular. Abdomen: Nontender. Extremities: Left foot 1+ edema present. - Labs CBC & Chem 7: 04/06/24 06:05 04/11/24 08:45 Labs: Abnormal Lab Results - Last 24 Hours (Table) 04/10/24 04/11/24 04/11/24 Range/Units 20:21 08:45 11:40 Chloride 119 H (98-107) mmol/L Carbon Dioxide 16 L (22-30) mmol/L BUN 33 H (9-20) mg/dL Creatinine 2.08 H (0.66-1.25) mg/dL POC Glucose (mg/dL) 126 H 132 H (70-110) mg/dL Magnesium 1.5 L (1.6-2.3) mg/dL Assessment and Plan Assessment: 1. Acute kidney injury. Secondary to volume depletion and NSAIDs. No hydronephrosis seen on ultrasound 04/03/2024. Renal function has improved since admission however serum creatinine seems to to be staying around 1.9-2 mg/dL now. Continue with normal saline. Bladder scan does not reveal urinary retention. 2. Metabolic acidosis. Anion gap secondary to alcohol, acute kidney injury. Improved. 3. Hypovolemic hyponatremia. Improved. 4. Hyperkalemia. Secondary to acute kidney injury and metabolic acidosis. Improved. 5. EtOH abuse. 6. Hypocalcemia. Corrected calcium 04/06/2024 is 9.7. Vitamin D deficiency noted - vitamin D 16.6 04/03/2024. Maintained on supplementation. 7. Cardiomyopathy with EF of about 40%, scheduled for cardiac catheterization today. Plan: Continue IV fluids. Decrease rate after cardiac catheterization. Continue vitamin D supplementation. Continue antihypertensive medications. Continue to monitor renal function. Repeat labs in the morning. Add oral sodium bicarb
[2024-04-11] MEDS: SODIUM BICARBONATE TAB 650 MG TAB PO SCH (15:54)
[2024-04-11] MEDS: MAGNESIUM SULFATE-D5W PMX 1 GM in DEXTROSE/WATER 1 100ML.BAG IVPB SCH (16:00)
[2024-04-11 16:55] LABS: Glucose,Whole Blood 97 mg/dL (70-110)
[2024-04-11] MEDS: IV FLUID CONTINUATION 1,000 ML IV ONE (17:12)
[2024-04-11] MEDS ORDERED: LIDOCAINE 1% INJ 10MG/ML (20 ML MDV) ONE (17:30)
[2024-04-11] MEDS ORDERED: VERAPAMIL 2.5 MG/ML 2 ML AMP ONE (17:30)
[2024-04-11] MEDS ORDERED: HEPARIN SODIUM 1,000 UN/ML (10ML VL) ONE (17:42)
[2024-04-11] MEDS ORDERED: fentaNYL (PF) 50 MCG/ML 2 ML AMP ONE (17:43)
[2024-04-11] MEDS: HEPARIN SODIUM,PORCINE (1 ML) 2,500 UNIT in SODIUM CHLORIDE 0.9% 250 ML IRRIGATION ONE (17:57)
[2024-04-11] MEDS: HEPARIN SODIUM,PORCINE 10,000 UNIT in SODIUM CHLORIDE 0.9% 1,000 ML IRRIGATION ONE (17:57)
[2024-04-11] MEDS: LIDOCAINE 1% INJ 10MG/ML (20 ML MDV) SQ ONE (18:05)
[2024-04-11] MEDS: MIDAZOLAM 2 MG/2 ML VIAL IVP ONE ×2 (18:05→18:20)
[2024-04-11] MEDS: fentaNYL (PF) 50 MCG/1 ML VIAL IVP ONE ×2 (18:05→18:20)
[2024-04-11] MEDS: VERAPAMIL SYRINGE (5 MG/10 ML) INTRAARTER ONE (18:06)
[2024-04-11] MEDS ORDERED: NITROGLYCERIN SL TABS 0.4 MG TAB SUBLINGUAL ONE (18:12)
[2024-04-11] MEDS: HEPARIN SODIUM 1,000 UN/ML (10ML VL) IVP ONE (18:22)
--- NOTE | 2024-04-11 18:24 | P.PN ---
Progress Note - Text Progress Note Date: 04/11/24 patient is 58-year-old gentleman with past medical his significant for hypertension, hyperlipidemia, diabetes mellitus who presented to the ER because of not feeling well and feeling dizzy. Patient admits to drinking large amounts of alcohol daily. Patient stated that has been not been feeling his usual self for the last few days. Patient states that he has been drinking a lot and has not been eating enough. Patient was complaining of dizziness. There was no complaint of passing out. There was no complaint nausea, vomiting or abdominal pain. There was no current fever or chills at home. Patient denies any diarrhea. Because of the symptoms, patient came to the ER Initial lab work done in the ER showed WBC 5.6, hemoglobin 9.6, platelet count 152, sodium 138, potassium 6.2, carbon oxide 5, BUN 74, creatinine zero 6.26 glucose 122, lactate 2.2, calcium 7.4, AST 131, ALT 74 EKG done in the ER showed heart rate of 82, no ST segment elevation or depression seen, no T-wave inversions seen. Patient admitted to internal medicine service 04/04. Patient seen and examined. Blood work this morning showed WBC 5.6, hemoglobin 8.9, sodium 100, potassium 3.4, BUN 65, creatinine 2.71 April 05: Eating better. Appetite is better. Had a bowel movement. Diarrhea resolved. Making good urine. Last alcohol intake was on Tuesday. Also smoker. Patient had an episode of chest pain and palpitations. Episode of SVT around 5 AM was given adenosine.. Coreg was added by cardiology. Placed on IV heparin. Had a 7 beat V. tach run around 2 PM April 06: The patient this morning. Resting. IV heparin. Farxiga was added yesterday. Seems to leveled off. 1.83 . eating fair. Will increase Coreg to 9 mg, cut back amlodipine to 5 mg April 07: Sitting at the edge of the bed. Having some knee pain. Voltaren gel ordered for the knee pain. Increase activity. Coreg increased to 12.5 twice daily. Amlodipine also was increased to 10 mg by cardiology. Patient today again went into SVT. April 08: Patient did walk about 3 laps yesterday. Some knee pain present. Getting Voltaren gel. Blood pressure is good. On IV amiodarone. Off Cardizem drip. Currently in sinus rhythm. April 09: Patient remains in normal sinus rhythm. Early this morning heart rate did go up to about 114. Patient is off amiodarone. Creatinine has plateaued off. April 10: Some flareup of arthritis in the left ankle from walking. Voltaren gel and Maykel wrap. Patient due for cardiac catheterization tomorrow. Cardiology is aware about creatinine 2.03. Nephrology following. April 11: Resting in bed. Sister at the bedside. Patient is due for cardiac cath this afternoon.Sister was concerned about patient's alcohol. Patient creatinine is being followed. N.p.o. Active Medications Acetaminophen (Acetaminophen Tab 325 Mg Tab) 650 mg PO Q6HR PRN PRN Reason: Fever and/ or Pain Last Admin: 04/11/24 08:26 Dose: 650 mg Albuterol/Ipratropium (Ipratropium-Albuterol 3 Ml Neb) 3 ml INHALATION RT-TID [facility] Last Admin: 04/11/24 11:50 Dose: 3 ml Alprazolam (Alprazolam 0.25 Mg Tab) 0.25 mg PO Q6HR PRN PRN Reason: Mild Anxiety Amiodarone HCl (Amiodarone 200 Mg Tab) 400 mg PO BID [facility] Last Admin: 04/11/24 08:26 Dose: 400 mg Amlodipine Besylate (Amlodipine 10 Mg Tab) 10 mg PO DAILY [facility] Last Admin: 04/11/24 08:26 Dose: 10 mg Aspirin (Aspirin 81 Mg) 81 mg PO DAILY [facility] Last Admin: 04/11/24 08:20 Dose: Not Given Atorvastatin Calcium (Atorvastatin 40 Mg Tab) 40 mg PO HS [facility] Last Admin: 04/10/24 20:28 Dose: 40 mg Carvedilol (Carvedilol 12.5 Mg Tab) 12.5 mg PO BID-W/MEALS [facility] Last Admin: 04/11/24 08:26 Dose: 12.5 mg Dapagliflozin (Dapagliflozin Propanediol 10 Mg Tablet) 10 mg PO DAILY [facility] Last Admin: 04/11/24 08:26 Dose: 10 mg Dextrose/Water (Dextrose 50% Syringe 50 Ml) 25 ml IVP PER PROTOCOL PRN; Protocol PRN Reason: Hypoglycemia Dextrose/Water (Dextrose 50% Syringe 50 Ml) 50 ml IVP PER PROTOCOL PRN; Protocol PRN Reason: Hypoglycemia Diclofenac Sodium (Diclofenac Sodium Gel 50 Gm Tube) 4 gm TOPICAL TID [facility]; Pr otocol Last Admin: 04/11/24 15:56 Dose: Not Given Ergocalciferol (Ergocalciferol 1,250 Mcg (50,000 Iu) Capsule) 1,250 mcg PO Q72H [facility] Last Admin: 04/10/24 08:53 Dose: 1,250 mcg Ferrous Sulfate (Ferrous Sulfate 325 Mg Tab) 325 mg PO DAILY [facility] Last Admin: 04/11/24 08:26 Dose: 325 mg Sodium Chloride (Saline 0.9%) 1,000 mls @ 50 mls/hr IV .Q20H [facility] Last Admin: 04/11/24 02:06 Dose: Not Given Heparin Sodium (Porcine) 10, (000 unit/ Sodium Chloride) 1,001 mls @ 999 mls/hr IRRIGATION ONCE PRN PRN Reason: INTRA-OP Stop: 04/11/24 23:00 Heparin Sodium (Porcine) 2,500 (unit/ Sodium Chloride) 250.5 mls @ 250 mls/hr IRRIGATION ONCE PRN PRN Reason: INTRA-OP Stop: 04/11/24 23:00 Sodium Chloride 1,000 ml/ IV (Solution) 1,000 mls @ 75 mls/hr IV .[id number] [facility] Last Admin: 04/11/24 03:22 Dose: Not Given Insulin Aspart (Insulin Aspart (Novolog) 100 Unit/Ml Vial) 0 unit SQ ACHS [facility]; Protocol Last Admin: 04/11/24 17:22 Dose: Not Given Lorazepam (Lorazepam 2 Mg/Ml Inj) 1 mg IV Q1HR PRN PRN Reason: CIWA 10 to 15 Lorazepam (Lorazepam 2 Mg/Ml Inj) 1 mg IV Q2HR PRN PRN Reason: CIWA 8 or 9 Last Admin: 04/05/24 15:27 Dose: 1 mg Magnesium Oxide (Magnesium Oxide 400 Mg Tab) 400 mg PO TID [facility] Last Admin: 04/11/24 15:56 Dose: Not Given Miscellaneous Information (Magnesium Replacement Protocol 1 Each Misc) 1 each MISCELLANE DAILY PRN; Protocol PRN Reason: Per Protocol Naloxone HCl (Naloxone 0.4 Mg/Ml 1 Ml Vial) 0.2 mg IV Q2M PRN PRN Reason: Opioid Reversal Nicotine (Nicotine 14mg/24hr Patch) 1 patch TRANSDERM DAILY PRN PRN Reason: Nicotine Cravings Pantoprazole Sodium (Pantoprazole 40 Mg Tablet) 40 mg PO DAILY [facility] Last Admin: 04/11/24 08:26 Dose: 40 mg Sodium Bicarbonate (Sodium Bicarbonate Tab 650 Mg Tab) 650 mg PO BID [facility] Last Admin: 04/11/24 15:54 Dose: Not Given Spironolactone (Spironolactone 25 Mg Tab) 25 mg PO DAILY [facility] Social history: Drinking half of pint of alcohol daily. girlfriend Pastora. Smoked a pack and a half for about 40 years. Used to do construction work Physical examination: VITAL SIGNS: 98.1, 79, 17, 147/84, 99% room air GENERAL: In bed, comfortable EYES: Pupils equal. Conjunctiva normal. HEENT: External appearance of nose and ears normal, oral cavity grossly normal. NECK: JVD not raised; masses not palpable. HEART: First and second heart sounds are normal; no edema. LUNGS: Respiratory rate normal; clear to auscultation. ABDOMEN: Soft, nontender, liver spleen not palpable, no masses palpable. PSYCH: Alert and oriented x3; mood and affect normal. MUSCULOSKELETAL:No Clubbing/cyanosis;muscles-grossly intact. Some swelling around the left ankle. Mild tenderness no redness. INVESTIGATIONS, reviewed in the clinical context: April 11: Potassium 4.6 BUN 33 creatinine 2.08 April 07: Potassium 4.4 BUN 34 creatinine 1.93. Troponin I 0.039 April 06: White count 7.8 hemoglobin 8.9 platelets 100 potassium 4.5 BUN 40 creatinine 1.83 April 05: White count 5.3 hemoglobin 8.7 platelets 115 sodium 139 potassium 3.9 BUN 50 creatinine 1.76 magnesium 1.0 AST 84 ALT 51 troponin I 0.137 albumin 2.7 TSH 1.8 2D echocardiogram EF 40 to 45%. Aortic sclerosis Assessment and plan -Acute kidney injury secondary to volume depletion and NSAIDs.: Creatinine has plateaued Admission creatinine 6.26. 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 For cardiac catheterization this afternoon -Recurrent SVT,: Now in sinus rhythm magnesium Coreg 12.5 twice daily Received IV amiodarone drip -Episode of nonsustained V. tach -Left ankle arthritis. Topical Voltaren gel. Maykel wrap -Medical asthenia multifactorial - metabolic acidosis due to severe renal and alcohol Received bicarbonate drip -COPD in a current smoker DuoNeb -GERD Protonix -Essential hypertension, amlodipine 10 mg. Coreg 12.5 twice daily . -Hyponatremia from decreased solute intake: Better -Hyperkalemia secondary to renal failure: Better -Acute hepatitis secondary to alcoholism: Better -Alcoholic liver disease/hepatitis -Alcohol use disorder -Hypomagnesemia Replace magnesium -Full code Continue current medications. NPO. For cardiac catheterization this afternoon.
[2024-04-11] MEDS ORDERED: RX INFO: IV CONTRAST WAS GIVEN 1 EACH MISC MISCELLANE PRN (18:33)
--- NOTE | 2024-04-11 18:36 | P.PCN ---
Date of Procedure: 04/11/24 Operative Findings: CARDIAC CATHETERIZATION PERFORMING PHYSICIAN: Da Lyles MD, RPVI PROCEDURE PERFORMED: 1. Selective right and left coronary angiogram 2. Left heart catheterization 3. Ultrasound-guided access of the right radial artery INDICATION: Acute non-ST elevation myocardial infarction COMPLICATION: None APPROACH: Right radial artery LEVEL OF SEDATION: Moderate with a sedation length of 27 minutes PROCEDURE DESCRIPTION: After obtaining an informed consent, the patient was brought to cardiac label stamper. Local anesthesia was performed using lidocaine subcutaneously. The right radial artery was cannulated using Seldinger technique, the guidewire passed easily, following that we advanced a 5-Jamaican sheath dilator assembly, the wire and dilator were removed and sheath was flushed. Following that, 2 mg of verapamil along with 5000 unit heparin were given. Selective right and left coronary angiogram using 5 Jamaican Roberto catheters Following that we did left heart catheterization using 6-Jamaican pigtail catheter. The procedure was completed there was no complication. SELECTIVE CORONARY ANGIOGRAM: The right coronary artery: Large-caliber vessel and a dominant vessel with mild to moderate disease only involving the PDA branch of the RCA Left main: Is angiographically normal The left circumflex: Large-caliber vessel nondominant vessel appears to have mild disease only The left anterior descending artery: The proximal LAD by the bifurcation of a large diagonal branch has a lesion appears to be in the range of 60 to 70% very eccentric and was seen mainly in the TAJIK cranial view. HEMODYNAMICS: The LVEDP was 16 mmHg with no significant gradient across aortic valve CONCLUSION: 1. Intermediate to severe disease with eccentric lesion involving the proximal LAD 2. Normal left-sided filling pressure POSTPROCEDURE MANAGEMENT: iFR of the LAD
[2024-04-11] MEDS: IOPAMIDOL-370 100ML BTL INTRATHECA ONE (18:40)
[2024-04-11] MEDS: SODIUM CHLORIDE 0.9% 1,000 ML IV SCH (19:00)
[2024-04-11 20:07] LABS: Glucose,Whole Blood 123 mg/dL (70-110)
[2024-04-12 06:00] LABS: Glucose,Whole Blood 124 mg/dL (70-110)
[2024-04-12] MEDS: SPIRONOLACTONE 25 MG TAB PO SCH (07:59)
[2024-04-12 09:11] LABS: African American GFR (CKD) 40 (>60 ml/min/1.73 sqM); Anion Gap 8 mmol/L; Blood Urea Nitrogen 26 mg/dL (9-20); Calcium 9.2 mg/dL (8.4-10.2); Carbon Dioxide 19 mmol/L (22-30); Chloride 116 mmol/L (98-107); Glucose 91 mg/dL (74-99); Magnesium 2.1 mg/dL (1.6-2.3); Non-African American GFR(CKD) 35 (>60 ml/min/1.73 sqM); Potassium 4.7 mmol/L (3.5-5.1); Sodium 143 mmol/L (137-145)
[2024-04-12 11:49] LABS: Glucose,Whole Blood 220 mg/dL (70-110)
--- NOTE | 2024-04-12 13:04 | P.PN ---
Subjective Patient is being seen for follow-up for acute kidney injury and metabolic acidosis. Patient underwent echo on 04/05/2024 which revealed an ejection fraction of 40 to 45%. No nausea vomiting or diarrhea. No significant complaints today. Serum creatinine 2.0 today. This may be his baseline renal function. Patient is maintained on IV fluids. Status postcardiac catheterization on 04/11/2024 Objective - Vital Signs Vital signs: Vital Signs Temp 98.6 F 04/12/24 12:00 Pulse 75 04/12/24 12:00 Resp 17 04/12/24 12:00 BP 128/67 04/12/24 12:00 Pulse Ox 98 04/12/24 12:00 FiO2 Intake & Output 04/11/24 04/12/24 04/12/24 18:59 06:59 18:59 Intake Total 230 20 360 Output Total 450 Balance 230 -430 360 Weight 69.7 kg Intake: IV 230 20 Invasive Line 4 20 Invasive Line 5 10 20 Oral 360 Output: Urine 450 Other: Voiding Method Bedside Commode Bedside Commode Bedside Commode Urinal Urinal Urinal # Voids 3 - Exam Vital signs are stable. General: No acute distress. HEENT: Head exam is unremarkable. Lungs: Bilateral breath sounds present; no rhonchi, wheezes, or rales. Heart: Rate and rhythm are regular. Abdomen: Nontender. Extremities: Left foot 1+ edema present. - Labs CBC & Chem 7: 04/06/24 06:05 04/12/24 07:38 Labs: Abnormal Lab Results - Last 24 Hours (Table) 04/11/24 04/12/24 04/12/24 Range/Units 20:06 05:56 07:38 Chloride 116 H (98-107) mmol/L Carbon Dioxide 19 L (22-30) mmol/L BUN 26 H (9-20) mg/dL Creatinine 2.03 H (0.66-1.25) mg/dL POC Glucose (mg/dL) 123 H 124 H (70-110) mg/dL 04/12/24 Range/Units 11:47 Chloride (98-107) mmol/L Carbon Dioxide (22-30) mmol/L BUN (9-20) mg/dL Creatinine (0.66-1.25) mg/dL POC Glucose (mg/dL) 220 H (70-110) mg/dL Assessment and Plan Assessment: 1. Acute kidney injury. Secondary to volume depletion and NSAIDs. No hydronephrosis seen on ultrasound 04/03/2024. Renal function has improved since admission however serum creatinine seems to to be staying around 1.9-2 mg/dL now. Continue with normal saline. Bladder scan does not reveal urinary retention. 2. Metabolic acidosis. Anion gap secondary to alcohol, acute kidney injury. Improved. 3. Hypovolemic hyponatremia. Improved. 4. Hyperkalemia. Secondary to acute kidney injury and metabolic acidosis. Improved. 5. EtOH abuse. 6. Hypocalcemia. Corrected calcium 04/06/2024 is 9.7. Vitamin D deficiency noted - vitamin D 16.6 04/03/2024. Maintained on supplementation. 7. Cardiomyopathy with EF of about 40%, status postcardiac cath on 04/11/2024 Plan: Continue IV fluids as patient is scheduled for repeat catheterization in a.m. Continue vitamin D supplementation. Continue antihypertensive medications. Continue to monitor renal function. Repeat labs in the morning.
[2024-04-12] MEDS ORDERED: NITROGLYCERIN SL TABS 0.4 MG TAB SUBLINGUAL PRN (13:30)
[2024-04-12] MEDS: carvediloL 12.5 MG TAB PO SCH (16:01)
[2024-04-12 16:34] LABS: Glucose,Whole Blood 127 mg/dL (70-110)
--- NOTE | 2024-04-12 17:24 | P.PN ---
Progress Note - Text Progress Note Date: 04/12/24 patient is 58-year-old gentleman with past medical his significant for hypertension, hyperlipidemia, diabetes mellitus who presented to the ER because of not feeling well and feeling dizzy. Patient admits to drinking large amounts of alcohol daily. Patient stated that has been not been feeling his usual self for the last few days. Patient states that he has been drinking a lot and has not been eating enough. Patient was complaining of dizziness. There was no complaint of passing out. There was no complaint nausea, vomiting or abdominal pain. There was no current fever or chills at home. Patient denies any diarrhea. Because of the symptoms, patient came to the ER Initial lab work done in the ER showed WBC 5.6, hemoglobin 9.6, platelet count 152, sodium 138, potassium 6.2, carbon oxide 5, BUN 74, creatinine zero 6.26 glucose 122, lactate 2.2, calcium 7.4, AST 131, ALT 74 EKG done in the ER showed heart rate of 82, no ST segment elevation or depression seen, no T-wave inversions seen. Patient admitted to internal medicine service 04/04. Patient seen and examined. Blood work this morning showed WBC 5.6, hemoglobin 8.9, sodium 100, potassium 3.4, BUN 65, creatinine 2.71 April 05: Eating better. Appetite is better. Had a bowel movement. Diarrhea resolved. Making good urine. Last alcohol intake was on Tuesday. Also smoker. Patient had an episode of chest pain and palpitations. Episode of SVT around 5 AM was given adenosine.. Coreg was added by cardiology. Placed on IV heparin. Had a 7 beat V. tach run around 2 PM April 06: The patient this morning. Resting. IV heparin. Farxiga was added yesterday. Seems to leveled off. 1.83 . eating fair. Will increase Coreg to 9 mg, cut back amlodipine to 5 mg April 07: Sitting at the edge of the bed. Having some knee pain. Voltaren gel ordered for the knee pain. Increase activity. Coreg increased to 12.5 twice daily. Amlodipine also was increased to 10 mg by cardiology. Patient today again went into SVT. April 08: Patient did walk about 3 laps yesterday. Some knee pain present. Getting Voltaren gel. Blood pressure is good. On IV amiodarone. Off Cardizem drip. Currently in sinus rhythm. April 09: Patient remains in normal sinus rhythm. Early this morning heart rate did go up to about 114. Patient is off amiodarone. Creatinine has plateaued off. April 10: Some flareup of arthritis in the left ankle from walking. Voltaren gel and Maykel wrap. Patient due for cardiac catheterization tomorrow. Cardiology is aware about creatinine 2.03. Nephrology following. April 11: Resting in bed. Sister at the bedside. Patient is due for cardiac cath this afternoon.Sister was concerned about patient's alcohol. Patient creatinine is being followed. N.p.o. April 12: Patient yet history underwent cardiac catheterization by Dr. Lyles. Found to have significant disease in the proximal LAD. Due to some technical issues procedure had to be discontinued. Patient return to [facility] tomorrow. Sitting at the edge of bed. No chest pain or shortness of breath. Discussed discharge planning with the patient. Keen to go home. Discussed about alcohol abstinence. He has a plan in place. Also getting online help. Active Medications Acetaminophen (Acetaminophen Tab 325 Mg Tab) 650 mg PO Q6HR PRN PRN Reason: Fever and/ or Pain Last Admin: 04/12/24 16:02 Dose: 650 mg Albuterol/Ipratropium (Ipratropium-Albuterol 3 Ml Neb) 3 ml INHALATION RT-TID [facility] Last Admin: 04/12/24 16:03 Dose: 3 ml Alprazolam (Alprazolam 0.25 Mg Tab) 0.25 mg PO Q6HR PRN PRN Reason: Mild Anxiety Alprazolam (Alprazolam 0.5 Mg Tab) 0.5 mg PO Q6HR PRN PRN Reason: Moderate Anxiety Amiodarone HCl (Amiodarone 200 Mg Tab) 400 mg PO BID [facility] Last Admin: 04/12/24 07:59 Dose: 400 mg Amlodipine Besylate (Amlodipine 5 Mg Tab) 5 mg PO DAILY [facility] Aspirin (Aspirin 81 Mg) 81 mg PO DAILY [facility] Last Admin: 04/12/24 07:59 Dose: 81 mg Atorvastatin Calcium (Atorvastatin 40 Mg Tab) 40 mg PO HS [facility] Last Admin: 04/11/24 20:48 Dose: 40 mg Carvedilol (Carvedilol 12.5 Mg Tab) 25 mg PO BID-W/MEALS [facility] Last Admin: 04/12/24 16:01 Dose: 25 mg Dapagliflozin (Dapagliflozin Propanediol 10 Mg Tablet) 10 mg PO DAILY [facility] Last Admin: 04/12/24 07:58 Dose: 10 mg Dextrose/Water (Dextrose 50% Syringe 50 Ml) 25 ml IVP PER PROTOCOL PRN; Protocol PRN Reason: Hypoglycemia Dextrose/Water (Dextrose 50% Syringe 50 Ml) 50 ml IVP PER PROTOCOL PRN; Protocol PRN Reason: Hypoglycemia Diclofenac Sodium (Diclofenac Sodium Gel 50 Gm Tube) 4 gm TOPICAL TID [facility]; Protocol Last Admin: 04/12/24 16:01 Dose: Not Given Ergocalciferol (Ergocalciferol 1,250 Mcg (50,000 Iu) Capsule) 1,250 mcg PO Q72H [facility] Last Admin: 04/10/24 08:53 Dose: 1,250 mcg Ferrous Sulfate (Ferrous Sulfate 325 Mg Tab) 325 mg PO DAILY [facility] Last Admin: 04/12/24 07:59 Dose: 325 mg Sodium Chloride (Saline 0.9%) 1,000 mls @ 50 mls/hr IV .Q20H [facility] Last Admin: 04/11/24 20:48 Dose: 50 mls/hr Sodium Chloride 1,000 ml/ IV (Solution) 1,000 mls @ 75 mls/hr IV .[id number] [facility] Last Admin: 04/12/24 06:02 Dose: Not Given Heparin Sodium (Porcine) 10, (000 unit/ Sodium Chloride) 1,001 mls @ 999 mls/hr IRRIGATION ONCE PRN PRN Reason: INTRA-OP Stop: 04/13/24 23:00 Heparin Sodium (Porcine) 2,500 (unit/ Sodium Chloride) 250.5 mls @ 250 mls/hr IRRIGATION ONCE PRN PRN Reason: INTRA-OP Stop: 04/13/24 23:00 Sodium Chloride 1,000 ml/ IV (Solution) 1,000 mls @ 75 mls/hr IV .[id number] [facility] Stop: 04/13/24 09:59 Insulin Aspart (Insulin Aspart (Novolog) 100 Unit/Ml Vial) 0 unit SQ ACHS [facility]; Protocol Last Admin: 04/12/24 16:41 Dose: Not Given Lorazepam (Lorazepam 2 Mg/Ml Inj) 1 mg IV Q1HR PRN PRN Reason: CIWA 10 to 15 Lorazepam (Lorazepam 2 Mg/Ml Inj) 1 mg IV Q2HR PRN PRN Reason: CIWA 8 or 9 Last Admin: 04/05/24 15:27 Dose: 1 mg Magnesium Oxide (Magnesium Oxide 400 Mg Tab) 400 mg PO TID [facility] Last Admin: 04/12/24 16:01 Dose: 400 mg Miscellaneous Information (Magnesium Replacement Protocol 1 Each Misc) 1 each MISCELLANE DAILY PRN; Protocol PRN Reason: Per Protocol Miscellaneous Information (Rx Info: Iv Contrast Was Given 1 Each Misc) 1 each MISCELLANE DAILY PRN PRN Reason: Per Protocol Stop: 04/13/24 18:33 Naloxone HCl (Naloxone 0.4 Mg/Ml 1 Ml Vial) 0.2 mg IV Q2M PRN PRN Reason: Opioid Reversal Nicotine (Nicotine 14mg/24hr Patch) 1 patch TRANSDERM DAILY PRN PRN Reason: Nicotine Cravings Nitroglycerin (Nitroglycerin Sl Tabs 0.4 Mg Tab) 0.4 mg SUBLINGUAL Q5M PRN PRN Reason: Chest Pain Pantoprazole Sodium (Pantoprazole 40 Mg Tablet) 40 mg PO DAILY [facility] Last Admin: 04/12/24 07:59 Dose: 40 mg Sodium Bicarbonate (Sodium Bicarbonate Tab 650 Mg Tab) 650 mg PO BID [facility] Last Admin: 04/12/24 07:58 Dose: 650 mg Spironolactone (Spironolactone 25 Mg Tab) 25 mg PO DAILY [facility] Last Admin: 04/12/24 07:59 Dose: 25 mg Social history: Drinking half of pint of alcohol daily. girlfriend Pastora. Smoked a pack and a half for about 40 years. Used to do construction work Physical examination: VITAL SIGNS: 98.2, 68, 17, 129/72, 99% room air GENERAL: Sitting up, comfortable EYES: Pupils equal. Conjunctiva normal. HEENT: External appearance of nose and ears normal, oral cavity grossly normal. NECK: JVD not raised; masses not palpable. HEART: First and second heart sounds are normal; no edema. LUNGS: Respiratory rate normal; clear to auscultation. ABDOMEN: Soft, nontender, liver spleen not palpable, no masses palpable. PSYCH: Alert and oriented x3; mood and affect normal. MUSCULOSKELETAL:No Clubbing/cyanosis;muscles-grossly intact. Some swelling around the left ankle. Mild tenderness no redness. INVESTIGATIONS, reviewed in the clinical context: April 12: Creatinine 2.03 April 11: Potassium 4.6 BUN 33 creatinine 2.08 April 07: Potassium 4.4 BUN 34 creatinine 1.93. Troponin I 0.039 April 06: White count 7.8 hemoglobin 8.9 platelets 100 potassium 4.5 BUN 40 creatinine 1.83 April 05: White count 5.3 hemoglobin 8.7 platelets 115 sodium 139 potassium 3.9 BUN 50 creatinine 1.76 magnesium 1.0 AST 84 ALT 51 troponin I 0.137 albumin 2.7 TSH 1.8 2D echocardiogram EF 40 to 45%. Aortic sclerosis Assessment and plan -Acute kidney injury secondary to volume depletion and NSAIDs.: Creatinine has plateaued Admission creatinine 6.26. Leveled off at 1.9-2.0 -Thrombocytopenia due to alcohol liver disease -IV heparin-discontinued -Chronic congestive heart failure from systolic dysfunction EF 40 to 45%. For cardiac catheterization this afternoon -Coronary artery disease with proximal LAD lesion. Cardiac catheterization by Dr. Lyles on April 11. [facility] return to [facility]. -Recurrent SVT,: Now in sinus rhythm magnesium Coreg 12.5 twice daily Received IV amiodarone drip -Episode of nonsustained V. tach -Left ankle arthritis. Topical Voltaren gel. Maykel wrap -Medical asthenia multifactorial - metabolic acidosis due to severe renal and alcohol Received bicarbonate drip -COPD in a current smoker DuoNeb -GERD Protonix -Essential hypertension, amlodipine 10 mg. Coreg 12.5 twice daily . -Hyponatremia from decreased solute intake: Better -Hyperkalemia secondary to renal failure: Better -Acute hepatitis secondary to alcoholism: Better -Alcoholic liver disease/hepatitis -Alcohol use disorder -Hypomagnesemia Replace magnesium -Full code Patient to return to [facility] tomorrow. Discharge planning discussed with patient. He wants to go home.
[2024-04-12 20:07] LABS: Glucose,Whole Blood 154 mg/dL (70-110)
--- NOTE | 2024-04-12 22:49 | P.PN ---
Subjective Progress Note Date: 04/12/24 The patient is a 58-year-old gentleman with a past medical history significant for history of excessive alcohol use and recent diagnosis of cardiomyopathy as well as hypertension and dyslipidemia who was admitted to the hospital with diarrhea and he was diagnosed with acute renal failure. An echo performed and showed cardiomyopathy which is no. He was also in acute renal failure April 07, 2024 The patient was seen and evaluated this morning with he is asymptomatic. He is hemodynamically stable beside the pressure is consistent with stage II hypertension. The initial plan was to perform a heart catheterization but his creatinine is worse today. With that being said we are holding on performing a heart catheterization meanwhile adjust his blood pressure medication and add amlodipine to the current medical regimen. Beside that continue aspirin and beta-raeann. The examination is remarkable for regular rhythm with a systolic murmur and clear breathing sounds bilaterally and no edema was noted April 08, 2024 The patient was seen and evaluated this morning. Yesterday after the round he went into initially narrow complex tachycardia consistent with SVT but subsequently he went into wide-complex tachycardia consistent with either SVT with aberrancy or ventricular tachycardia. The rhythm was terminated by adenosine and likely to be SVT with aberrancy because his initial rhythm was narrow complex and the rhythm was terminated with adenosine. He was converted to normal sinus mechanism and he remains in sinus mechanism at this point. He is on Cardizem IV which went stop and start the patient on amiodarone IV. Otherwise he is asymptomatic this morning and remains hemodynamically stable. No blood work as of this morning to assess his kidney function and once the kidney function improving need to undergo a heart catheterization to rule out severe underlying coronary artery disease. The examination is remarkable for regular rhythm with a soft systolic murmur and clear breathing sounds bilaterally and no edema was noted in the lower extremities. April 09, 2024 Patient is evaluated this morning. Patient's creatinine is 1.9. Has been stable for last 24 hours No further arrhythmias noticed on telemetry. Denies any chest pain chest pressure. Appears euvolemic Denied any alcohol withdrawal symptoms at this time April 10, 2024 Patient is seen and examined at bedside this a.m. Patient creatinine is 2. It appears that this is the new baseline for the patient's creatinine and renal function. Good urine output Apr Patient underwent cardiac catheterization yesterday which showed severe disease in proximal LAD. Intervention was not done because of elevated contrast threshold due to low renal function. Today's renal function has been stable, he is hemodynamically stable. Denies any chest pain or shortness of breath, right radial access site appears to be intact with no concerns of hematoma or swelling On exam regular pulses, no significant murmurs appreciated Lungs are clear to auscultate No focal neurological deficit Abdomen is nondistended Assessment History of excessive alcohol use Acute renal failure likely secondary to hypovolemia/diarrhea Recent diagnosis of cardiomyopathy LVEF 40% unknown if is ischemic or nonischemic Cardiac arrhythmia with SVT with aberrancy versus VT Hypertension Multiple comorbid conditions Plan Continue aspirin, statin, Coreg Continue amiodarone 4 mg twice daily Continue Farxiga 10 mg for GDMT. Will not be able to add Aldactone or ARB at this point because of labile kidney function Monitor renal function Plan for cardiac catheterization tomorrow for staged PCI of LAD. Objective - Vital Signs Vital signs: Vital Signs Temp 98.2 F 04/12/24 16:00 Pulse 80 04/12/24 20:42 Resp 17 04/12/24 19:45 BP 136/71 04/12/24 19:45 Pulse Ox 98 04/12/24 19:45 FiO2 Intake & Output 04/12/24 04/12/24 04/13/24 06:59 18:59 06:59 Intake Total 20 600 Output Total 450 300 Balance -430 600 -300 Weight 69.7 kg Intake: IV 20 Invasive Line 5 20 Oral 600 Output: Urine 450 300 Other: Voiding Method Bedside Commode Bedside Commode Urinal Urinal # Voids 3 - Labs CBC & Chem 7: 04/06/24 06:05 04/12/24 07:38 Labs: Abnormal Lab Results - Last 24 Hours (Table) 04/12/24 04/12/24 04/12/24 Range/Units 05:56 07:38 11:47 Chloride 116 H (98-107) mmol/L Carbon Dioxide 19 L (22-30) mmol/L BUN 26 H (9-20) mg/dL Creatinine 2.03 H (0.66-1.25) mg/dL POC Glucose (mg/dL) 124 H 220 H (70-110) mg/dL 04/12/24 04/12/24 Range/Units 16:33 20:04 Chloride (98-107) mmol/L Carbon Dioxide (22-30) mmol/L BUN (9-20) mg/dL Creatinine (0.66-1.25) mg/dL POC Glucose (mg/dL) 127 H 154 H (70-110) mg/dL
[2024-04-13] MEDS: SODIUM CHLORIDE 0.9% 1,000 ML in EMPTY BAG 1 BAG IV SCH (03:38)
[2024-04-13] MEDS: ASPIRIN 325 MG TAB PO ONE (04:29)
[2024-04-13] MEDS: amLODIPine 5 MG TAB PO SCH (04:29)
[2024-04-13] MEDS: ATORVASTATIN 80 MG TAB PO ONE (04:29)
[2024-04-13 06:20] LABS: Glucose,Whole Blood 102 mg/dL (70-110)
[2024-04-13] MEDS ORDERED: HEPARIN SODIUM,PORCINE (1 ML) 2,500 UNIT in SODIUM CHLORIDE 0.9% 250 ML IRRIGATION PRN (07:00)
[2024-04-13] MEDS ORDERED: HEPARIN SODIUM,PORCINE 10,000 UNIT in SODIUM CHLORIDE 0.9% 1,000 ML IRRIGATION PRN (07:00)
[2024-04-13] MEDS ORDERED: HEPARIN SODIUM 1,000 UN/ML (10ML VL) ONE (08:13)
[2024-04-13] MEDS ORDERED: fentaNYL (PF) 50 MCG/ML 2 ML AMP ONE (08:13)
[2024-04-13] MEDS: MIDAZOLAM 2 MG/2 ML VIAL IVP ONE (08:15)
[2024-04-13] MEDS: LIDOCAINE 1% INJ 10MG/ML (20 ML MDV) SQ ONE (08:15)
[2024-04-13] MEDS: fentaNYL (PF) 50 MCG/1 ML VIAL IVP ONE (08:15)
[2024-04-13] MEDS ORDERED: LIDOCAINE 1% INJ 10MG/ML (20 ML MDV) ONE (08:15)
[2024-04-13] MEDS: HEPARIN SODIUM 1,000 UN/ML (10ML VL) IVP ONE (08:20)
[2024-04-13] MEDS: SODIUM CHLORIDE 0.9% 1,000 ML IV ONE (08:33)
[2024-04-13] MEDS ORDERED: RX INFO: IV CONTRAST WAS GIVEN 1 EACH MISC MISCELLANE PRN (08:33)
[2024-04-13] MEDS: HEPARIN SODIUM,PORCINE 10,000 UNIT in SODIUM CHLORIDE 0.9% 1,000 ML IRRIGATION ONE (08:33)
[2024-04-13] MEDS: HEPARIN SODIUM,PORCINE (1 ML) 2,500 UNIT in SODIUM CHLORIDE 0.9% 250 ML IRRIGATION ONE (08:33)
[2024-04-13] MEDS: IOPAMIDOL-370 100ML BTL INTRATHECA ONE (08:33)
--- NOTE | 2024-04-13 08:35 | P.PCN ---
Date of Procedure: 04/13/24 Operative Findings: iFR report Performing physician Da Lyles MD Procedure performed iFR of the LAD Ultrasound-guided access of the right common femoral artery and right common femoral artery angiogram Indication Intermediate to severe disease involving the proximal to mid LAD was identified on heart catheterization 48 hours ago Approach Right common femoral artery Complication None Level of sedation Moderate to sedation length of 15 minutes Procedure description After obtaining informed consent the patient was brought to the cardiac [facility] and the right common femoral artery was cannulated using micropuncture technique under ultrasound guidance a micropuncture wire passed easily then I placed a 6 [place] 11 cm sheath at the right common femoral artery with anticoagulation was initiated using heparin and the patient was given 4000's of heparin IV. Subsequently after zeroing the Doppler wire and equalizing between the Doppler wire and guiding catheter which was JL4 guiding catheter the left main was engaged and the LAD was wired with IFR came to be at 0.90. Conclusion Intermediate nonobstructive lesion involving the proximal to mid LAD documented to be at borderline and nonischemic at 0.90
[2024-04-13 08:47] LABS: Anisocytosis Slight; Basophils # (A) 0.1 k/uL (0-0.2); Basophils % (A) 1 %; Eosinophils # (A) 0.1 k/uL (0-0.7); Eosinophils % (A) 1 %; HCT 24.9 % (39.0-53.0); Hypochromasia Marked; Lymphocytes # (A) 1.1 k/uL (1.0-4.8); Lymphocytes % (A) 11 %; MCH 30.9 pg (25.0-35.0); MCHC 29.7 g/dL (31.0-37.0); MCV 104.2 fL (80.0-100.0); Macrocytosis Moderate; Mean Platelet Volume 9.1; Monocytes % (A) 9 %; Neutrophils # (A) 7.7 k/uL (1.3-7.7); Neutrophils % (A) 76 %; RBC 2.39 m/uL (4.30-5.90); WBC 10.1 k/uL (3.8-10.6)
[2024-04-13 08:48] LABS: ALT 22 U/L (4-49); AST 28 U/L (17-59); African American GFR (CKD) 37 (>60 ml/min/1.73 sqM); Albumin 2.8 g/dL (3.5-5.0); Alkaline Phosphatase 81 U/L (38-126); Anion Gap 8 mmol/L; Blood Urea Nitrogen 28 mg/dL (9-20); Calcium 9.2 mg/dL (8.4-10.2); Carbon Dioxide 17 mmol/L (22-30); Chloride 119 mmol/L (98-107); Glucose 85 mg/dL (74-99); Magnesium 1.8 mg/dL (1.6-2.3); Non-African American GFR(CKD) 32 (>60 ml/min/1.73 sqM); Potassium 4.9 mmol/L (3.5-5.1); Sodium 144 mmol/L (137-145); Total Bilirubin 0.3 mg/dL (0.2-1.3); Total Protein 5.3 g/dL (6.3-8.2)
[2024-04-13 08:51] LABS: HGB 7.4 gm/dL (13.0-17.5); Platelet Count 612 k/uL (150-450)
[2024-04-13] MEDS: SODIUM CHLORIDE 0.9% 1,000 ML IV SCH (08:56)
[2024-04-13 11:33] LABS: Glucose,Whole Blood 159 mg/dL (70-110)
--- NOTE | 2024-04-13 12:23 | P.PN ---
Subjective Patient is being seen for follow-up for acute kidney injury and metabolic acidosis. Patient underwent echo on 04/05/2024 which revealed an ejection fraction of 40 to 45%. status post cardiac catheterization this morning with angioplasty of LAD Serum creatinine 2.1 today. This may be his baseline renal function. Patient is maintained on IV fluids. Status postcardiac catheterization on 04/11/2024 and on 04/13/2024. No complaints of shortness of breath. Objective - Vital Signs Vital signs: Vital Signs Temp 98 F 04/13/24 04:00 Pulse 69 04/13/24 11:34 Resp 16 04/13/24 11:34 BP 132/70 04/13/24 11:34 Pulse Ox 97 04/13/24 11:34 FiO2 Intake & Output 04/12/24 04/13/24 04/13/24 18:59 06:59 18:59 Intake Total 600 200 Output Total 750 975 Balance 600 -750 -775 Weight 70.7 kg Intake: IV 200 Oral 600 Output: Urine 750 975 Other: Voiding Method Bedside Commode Bedside Commode Urinal Urinal # Voids 3 # Bowel Movements 1 - Exam Vital signs are stable. General: No acute distress. HEENT: Head exam is unremarkable. Lungs: Bilateral breath sounds present; no rhonchi, wheezes, or rales. Heart: Rate and rhythm are regular. Abdomen: Nontender. Extremities: Left foot 1+ edema present. - Labs CBC & Chem 7: 04/13/24 07:52 04/13/24 07:52 Labs: Abnormal Lab Results - Last 24 Hours (Table) 04/12/24 04/12/24 04/13/24 Range/Units 16:33 20:04 07:52 RBC 2.39 L (4.30-5.90) m/uL Hgb 7.4 L D (13.0-17.5) gm/dL Hct 24.9 L (39.0-53.0) % MCV 104.2 H (80.0-100.0) fL MCHC 29.7 L (31.0-37.0) g/dL RDW 17.0 H (11.5-15.5) % Plt Count 612 H D (150-450) k/uL Chloride (98-107) mmol/L Carbon Dioxide (22-30) mmol/L BUN (9-20) mg/dL Creatinine (0.66-1.25) mg/dL POC Glucose (mg/dL) 127 H 154 H (70-110) mg/dL Total Protein (6.3-8.2) g/dL Albumin (3.5-5.0) g/dL 04/13/24 04/13/24 Range/Units 07:52 11:32 RBC (4.30-5.90) m/uL Hgb (13.0-17.5) gm/dL Hct (39.0-53.0) % MCV (80.0-100.0) fL MCHC (31.0-37.0) g/dL RDW (11.5-15.5) % Plt Count (150-450) k/uL Chloride 119 H (98-107) mmol/L Carbon Dioxide 17 L (22-30) mmol/L BUN 28 H (9-20) mg/dL Creatinine 2.15 H (0.66-1.25) mg/dL POC Glucose (mg/dL) 159 H (70-110) mg/dL Total Protein 5.3 L (6.3-8.2) g/dL Albumin 2.8 L (3.5-5.0) g/dL Assessment and Plan Assessment: 1. Acute kidney injury. Secondary to volume depletion and NSAIDs. No hydronephrosis seen on ultrasound 04/03/2024. Renal function has improved since admission however serum creatinine seems to to be staying around 1.9-2 mg/dL now. Maintained on normal saline. Bladder scan does not reveal urinary retention. 2. Metabolic acidosis. Anion gap secondary to alcohol, acute kidney injury. Improved. 3. Hypovolemic hyponatremia. Improved. 4. Hyperkalemia. Secondary to acute kidney injury and metabolic acidosis. Improved. 5. EtOH abuse. 6. Hypocalcemia. Corrected calcium 04/06/2024 is 9.7. Vitamin D deficiency noted - vitamin D 16.6 04/03/2024. Maintained on supplementation. 7. Cardiomyopathy with EF of about 40%, status postcardiac cath on 04/11/2024 and for angioplasty of LAD Plan: can discontinue IV fluids in a.m. Continue vitamin D supplementation. Continue antihypertensive medications. Continue to monitor renal function. Repeat labs in the morning.
[2024-04-13 16:25] LABS: Glucose,Whole Blood 108 mg/dL (70-110)
--- NOTE | 2024-04-13 16:32 | P.PN ---
Subjective Progress Note Date: 04/13/24 58-year-old gentleman with past medical his significant for hypertension, hyperlipidemia, diabetes mellitus who presented to the ER because of not feeling well and feeling dizzy. Patient admits to drinking large amounts of alcohol daily. Patient stated that has been not been feeling his usual self for the last few days. Patient states that he has been drinking a lot and has not been eating enough. Patient was complaining of dizziness. There was no complaint of passing out. There was no complaint nausea, vomiting or abdominal pain. There was no current fever or chills at home. Patient denies any diarrhea. Because of the symptoms, patient came to the ER Initial lab work done in the ER showed WBC 5.6, hemoglobin 9.6, platelet count 152, sodium 138, potassium 6.2, carbon oxide 5, BUN 74, creatinine zero 6.26 glucose 122, lactate 2.2, calcium 7.4, AST 131, ALT 74 EKG done in the ER showed heart rate of 82, no ST segment elevation or depression seen, no T-wave inversions seen. Patient admitted to internal medicine service April 12: Patient yet history underwent cardiac catheterization by Dr. Lyles. Found to have significant disease in the proximal LAD. Due to some technical issues procedure had to be discontinued. Patient return to the [facility] tomorrow. Sitting at the edge of bed. No chest pain or shortness of breath. Discussed discharge planning with the patient. Keen to go home. Discussed about alcohol abstinence. He has a plan in place. Also getting online help. 04/13/2024 Patient seen and evaluated in room at bedside; status post cardiac catheterization which revealed intermediate nonobstructive lesion involving the proximal to mid LAD documented to be at borderline and nonischemic -Blood work reveals hemoglobin dropping down to 7.4 this morning; creatinine t rending up to 2.15-nephrology is following and patient will be maintained on IV fluids Objective - Vital Signs Vital signs: Vital Signs Temp 98 F 04/13/24 04:00 Pulse 68 04/13/24 10:34 Resp 16 04/13/24 10:34 BP 143/75 04/13/24 10:34 Pulse Ox 96 04/13/24 10:34 FiO2 Intake & Output 04/12/24 04/13/24 04/13/24 18:59 06:59 18:59 Intake Total 600 200 Output Total 750 975 Balance 600 -417 -100 Weight 70.7 kg Intake: IV 200 Oral 600 Output: Urine 750 975 Other: Voiding Method Bedside Commode Bedside Commode Urinal Urinal # Voids 3 # Bowel Movements 1 - Exam EYES: Pupils equal. Conjunctiva normal. HEENT: External appearance of nose and ears normal, oral cavity grossly normal. NECK: JVD not raised; masses not palpable. HEART: First and second heart sounds are normal; no edema. LUNGS: Respiratory rate normal; clear to auscultation. ABDOMEN: Soft, nontender, liver spleen not palpable, no masses palpable. PSYCH: Alert and oriented x3; mood and affect normal. MUSCULOSKELETAL:No Clubbing/cyanosis;muscles-grossly intact. Some swelling around the left ankle. Mild tenderness no redness. - Labs CBC & Chem 7: 04/13/24 07:52 04/13/24 07:52 Labs: Abnormal Lab Results - Last 24 Hours (Table) 04/12/24 04/12/24 04/12/24 Range/Units 11:47 16:33 20:04 RBC (4.30-5.90) m/uL Hgb (13.0-17.5) gm/dL Hct (39.0-53.0) % MCV (80.0-100.0) fL MCHC (31.0-37.0) g/dL RDW (11.5-15.5) % Plt Count (150-450) k/uL Chloride (98-107) mmol/L Carbon Dioxide (22-30) mmol/L BUN (9-20) mg/dL Creatinine (0.66-1.25) mg/dL POC Glucose (mg/dL) 220 H 127 H 154 H (70-110) mg/dL Total Protein (6.3-8.2) g/dL Albumin (3.5-5.0) g/dL 04/13/24 04/13/24 Range/Units 07:52 07:52 RBC 2.39 L (4.30-5.90) m/uL Hgb 7.4 L D (13.0-17.5) gm/dL Hct 24.9 L (39.0-53.0) % MCV 104.2 H (80.0-100.0) fL MCHC 29.7 L (31.0-37.0) g/dL RDW 17.0 H (11.5-15.5) % Plt Count 612 H D (150-450) k/uL Chloride 119 H (98-107) mmol/L Carbon Dioxide 17 L (22-30) mmol/L BUN 28 H (9-20) mg/dL Creatinine 2.15 H (0.66-1.25) mg/dL POC Glucose (mg/dL) (70-110) mg/dL Total Protein 5.3 L (6.3-8.2) g/dL Albumin 2.8 L (3.5-5.0) g/dL Assessment and Plan Assessment: -Acute kidney injury secondary to volume depletion and NSAIDs.: Creatinine has plateaued Admission creatinine 6.26. Leveled off at 1.9-2.0 -Thrombocytopenia due to alcohol liver disease -IV heparin-discontinued -Chronic congestive heart failure from systolic dysfunction EF 40 to 45%. For cardiac catheterization this afternoon -Coronary artery disease with proximal LAD lesion. Cardiac catheterization by Dr. Lyles on April 11. Patient return to the [facility] tomorrow. -Recurrent SVT,: Now in sinus rhythm magnesium Coreg 12.5 twice daily Received IV amiodarone drip -Episode of nonsustained V. tach -Left ankle arthritis. Topical Voltaren gel. Maykel wrap -Medical asthenia multifactorial - metabolic acidosis due to severe renal and alcohol Received bicarbonate drip -COPD in a current smoker DuoNeb -GERD Protonix -Essential hypertension, amlodipine 10 mg. Coreg 12.5 twice daily . -Hyponatremia from decreased solute intake: Better -Hyperkalemia secondary to renal failure: Better -Acute hepatitis secondary to alcoholism: Better -Alcoholic liver disease/hepatitis -Alcohol use disorder -Hypomagnesemia Replace magnesium -Full code
[2024-04-13 20:00] LABS: Glucose,Whole Blood 125 mg/dL (70-110)
[2024-04-13] MEDS: ALPRAZolam 0.5 MG TAB PO PRN (22:53)
[2024-04-14 06:09] LABS: Glucose,Whole Blood 108 mg/dL (70-110)
[2024-04-14 11:34] LABS: Glucose,Whole Blood 135 mg/dL (70-110)
[2024-04-14 12:07] LABS: Anisocytosis Slight; Basophils # (A) 0.1 k/uL (0-0.2); Basophils % (A) 1 %; Eosinophils # (A) 0.1 k/uL (0-0.7); Eosinophils % (A) 1 %; HCT 23.3 % (39.0-53.0); HGB 7.2 gm/dL (13.0-17.5); Hypochromasia Marked; Lymphocytes # (A) 1.1 k/uL (1.0-4.8); Lymphocytes % (A) 11 %; MCH 31.1 pg (25.0-35.0); MCHC 30.7 g/dL (31.0-37.0); MCV 101.3 fL (80.0-100.0); Macrocytosis Slight; Mean Platelet Volume 8.1; Monocytes # (A) 0.7 k/uL (0-1.0); Monocytes % (A) 7 %; Neutrophils # (A) 7.8 k/uL (1.3-7.7); Neutrophils % (A) 79 %; Platelet Count 802 k/uL (150-450); WBC 9.9 k/uL (3.8-10.6)
[2024-04-14 12:23] LABS: African American GFR (CKD) 34 (>60 ml/min/1.73 sqM); Anion Gap 6 mmol/L; Blood Urea Nitrogen 29 mg/dL (9-20); Carbon Dioxide 21 mmol/L (22-30); Chloride 116 mmol/L (98-107); Glucose 106 mg/dL (74-99); Magnesium 1.6 mg/dL (1.6-2.3); Non-African American GFR(CKD) 30 (>60 ml/min/1.73 sqM); Potassium 4.7 mmol/L (3.5-5.1); Sodium 143 mmol/L (137-145)
--- NOTE | 2024-04-14 16:21 | P.PN ---
Subjective 58-year-old gentleman with past medical his significant for hypertension, hyperlipidemia, diabetes mellitus who presented to the ER because of not feeling well and feeling dizzy. Patient admits to drinking large amounts of alcohol daily. Patient stated that has been not been feeling his usual self for the last few days. Patient states that he has been drinking a lot and has not been eating enough. Patient was complaining of dizziness. There was no complaint of passing out. There was no complaint nausea, vomiting or abdominal pain. There was no current fever or chills at home. Patient denies any diarrhea. Because of the symptoms, patient came to the ER Initial lab work done in the ER showed WBC 5.6, hemoglobin 9.6, platelet count 152, sodium 138, potassium 6.2, carbon oxide 5, BUN 74, creatinine zero 6.26 glucose 122, lactate 2.2, calcium 7.4, AST 131, ALT 74 EKG done in the ER showed heart rate of 82, no ST segment elevation or depression seen, no T-wave inversions seen. Patient admitted to internal medicine service April 12: Patient yet history underwent cardiac catheterization by Dr. Lyles. Found to have significant disease in the proximal LAD. Due to some technical issues procedure had to be discontinued. Patient return to the [facility] tomorrow. Sitting at the edge of bed. No chest pain or shortness of breath. Discussed discharge planning with the patient. Keen to go home. Discussed about alcohol abstinence. He has a plan in place. Also getting online help. 04/13/2024 Patient seen and evaluated in room at bedside; status post cardiac catheterization which revealed intermediate nonobstructive lesion involving the proximal to mid LAD documented to be at borderline and nonischemic -Blood work reveals hemoglobin dropping down to 7.4 this morning; creatinine trending up to 2.15-nephrology is following and patient will be maintained on IV fluids 24-hour interval change 04/14/2024 Patient is seen and evaluated in room at bedside; no specific complaints Vital signs are reviewed and remained stable Blood work reveals a WBC of 9.9, hemoglobin of 7.2 and platelet count of 802, sodium 143, potassium 4.7, BUNs/creatinine of 29/2.30 Nephrology on board and recommending to continue with IV fluids at this time Hemoglobin continues to trend down; patient is currently on IV Protonix; stool occult blood has been ordered; we will continue to monitor H&H closely with plans to type and crossmatch and transfuse if hemoglobin is less than 7.0 Objective - Vital Signs Vital signs: Vital Signs Temp 99.2 F 04/14/24 08:47 Pulse 88 04/14/24 09:52 Resp 16 04/14/24 09:48 BP 141/73 04/14/24 08:47 Pulse Ox 97 04/14/24 08:47 FiO2 Intake & Output 04/13/24 04/14/24 04/14/24 18:59 06:59 18:59 Intake Total 436 120 Output Total 1925 350 300 Balance -1489 -350 -180 Weight 75 kg Intake: IV 200 Oral 236 120 Output: Urine 1925 350 300 Other: Voiding Method Bedside Commode Bedside Commode Bedside Commode Urinal Urinal Urinal # Bowel Movements 1 - Exam EYES: Pupils equal. Conjunctiva normal. HEENT: External appearance of nose and ears normal, oral cavity grossly normal. NECK: JVD not raised; masses not palpable. HEART: First and second heart sounds are normal; no edema. LUNGS: Respiratory rate normal; clear to auscultation. ABDOMEN: Soft, nontender, liver spleen not palpable, no masses palpable. PSYCH: Alert and oriented x3; mood and affect normal. MUSCULOSKELETAL:No Clubbing/cyanosis;muscles-grossly intact. Some swelling around the left ankle. Mild tenderness no redness. - Labs CBC & Chem 7: 04/14/24 11:22 04/14/24 11:22 Labs: Abnormal Lab Results - Last 24 Hours (Table) 04/13/24 04/14/24 Range/Units 19:58 11:32 POC Glucose (mg/dL) 125 H 135 H (70-110) mg/dL Assessment and Plan Assessment: -Acute kidney injury secondary to volume depletion and NSAIDs.: Creatinine has plateaued Admission creatinine 6.26. Leveled off at 1.9-2.0 -Thrombocytopenia due to alcohol liver disease -IV heparin-discontinued -Chronic congestive heart failure from systolic dysfunction EF 40 to 45%. For cardiac catheterization this afternoon -Coronary artery disease with proximal LAD lesion. Cardiac catheterization by Dr. Lyles on April 11. Patient return to the [facility] tomorrow. -Recurrent SVT,: Now in sinus rhythm magnesium Coreg 12.5 twice daily Received IV amiodarone drip -Episode of nonsustained V. tach -Left ankle arthritis. Topical Voltaren gel. Maykel wrap -Medical asthenia multifactorial - metabolic acidosis due to severe renal and alcohol Received bicarbonate drip -COPD in a current smoker DuoNeb -GERD Protonix -Essential hypertension, amlodipine 10 mg. Coreg 12.5 twice daily . -Hyponatremia from decreased solute intake: Better -Hyperkalemia secondary to renal failure: Better -Acute hepatitis secondary to alcoholism: Better -Alcoholic liver disease/hepatitis -Alcohol use disorder -Hypomagnesemia Replace magnesium -Full code
[2024-04-14 16:28] LABS: Glucose,Whole Blood 111 mg/dL (70-110)
[2024-04-14 16:51] LABS: Anisocytosis Slight; Basophils # (A) 0.1 k/uL (0-0.2); Basophils % (A) 1 %; Eosinophils # (A) 0.2 k/uL (0-0.7); Eosinophils % (A) 1 %; HCT 23.9 % (39.0-53.0); HGB 7.2 gm/dL (13.0-17.5); Hypochromasia Marked; Lymphocytes # (A) 1.2 k/uL (1.0-4.8); Lymphocytes % (A) 12 %; MCH 30.1 pg (25.0-35.0); MCHC 29.9 g/dL (31.0-37.0); MCV 100.5 fL (80.0-100.0); Macrocytosis Slight; Mean Platelet Volume 7.8; Monocytes # (A) 0.7 k/uL (0-1.0); Monocytes % (A) 7 %; Neutrophils # (A) 8.1 k/uL (1.3-7.7); Neutrophils % (A) 78 %; Platelet Count 836 k/uL (150-450); RBC 2.38 m/uL (4.30-5.90); RDW 16.9 % (11.5-15.5); WBC 10.3 k/uL (3.8-10.6)
--- NOTE | 2024-04-14 17:33 | P.PN ---
Subjective Patient is being seen for follow-up for acute kidney injury and metabolic acidosis. status post cardiac catheterization on 04/13/2024 with angioplasty of LAD Serum creatinine 2.1 today. This may be his baseline renal function. Patient is maintained on IV fluids. Status postcardiac catheterization on 04/11/2024 and on 04/13/2024. No complaints of shortness of breath. Objective - Vital Signs Vital signs: Vital Signs Temp 98.4 F 04/14/24 16:53 Pulse 83 04/14/24 16:53 Resp 16 04/14/24 16:53 BP 157/71 04/14/24 16:53 Pulse Ox 100 04/14/24 16:53 FiO2 Intake & Output 04/13/24 04/14/24 04/14/24 18:59 06:59 18:59 Intake Total 436 240 Output Total 1925 350 725 Balance -1489 -350 -485 Weight 75 kg Intake: IV 200 Oral 236 240 Output: Urine 1925 350 725 Other: Voiding Method Bedside Commode Bedside Commode Bedside Commode Urinal Urinal Urinal # Bowel Movements 1 - Exam Vital signs are stable. General: No acute distress. HEENT: Head exam is unremarkable. Lungs: Bilateral breath sounds present; no rhonchi, wheezes, or rales. Heart: Rate and rhythm are regular. Abdomen: Nontender. Extremities: Left foot 1+ edema present. - Labs CBC & Chem 7: 04/14/24 16:28 04/14/24 11:22 Labs: Abnormal Lab Results - Last 24 Hours (Table) 04/13/24 04/14/24 04/14/24 Range/Units 19:58 11:22 11:22 RBC 2.30 L (4.30-5.90) m/uL Hgb 7.2 L (13.0-17.5) gm/dL Hct 23.3 L (39.0-53.0) % MCV 101.3 H (80.0-100.0) fL MCHC 30.7 L (31.0-37.0) g/dL RDW 17.0 H (11.5-15.5) % Plt Count 802 H (150-450) k/uL Neutrophils # 7.8 H (1.3-7.7) k/uL Chloride 116 H (98-107) mmol/L Carbon Dioxide 21 L (22-30) mmol/L BUN 29 H (9-20) mg/dL Creatinine 2.30 H (0.66-1.25) mg/dL Glucose 106 H (74-99) mg/dL POC Glucose (mg/dL) 125 H (70-110) mg/dL 04/14/24 04/14/24 04/14/24 Range/Units 11:32 16:27 16:28 RBC 2.38 L (4.30-5.90) m/uL Hgb 7.2 L (13.0-17.5) gm/dL Hct 23.9 L (39.0-53.0) % MCV 100.5 H (80.0-100.0) fL MCHC 29.9 L (31.0-37.0) g/dL RDW 16.9 H (11.5-15.5) % Plt Count 836 H (150-450) k/uL Neutrophils # 8.1 H (1.3-7.7) k/uL Chloride (98-107) mmol/L Carbon Dioxide (22-30) mmol/L BUN (9-20) mg/dL Creatinine (0.66-1.25) mg/dL Glucose (74-99) mg/dL POC Glucose (mg/dL) 135 H 111 H (70-110) mg/dL Assessment and Plan Assessment: 1. Acute kidney injury. Secondary to volume depletion and NSAIDs. No hydronephrosis seen on ultrasound 04/03/2024. Renal function has improved since admission however serum creatinine seems to to be staying around 1.9-2 mg/dL now. Maintained on normal saline. No urinary retention. 2. Metabolic acidosis. Anion gap secondary to alcohol, acute kidney injury. Improved. 3. Hypovolemic hyponatremia. Improved. 4. Hyperkalemia. Secondary to acute kidney injury and metabolic acidosis. Improved. 5. EtOH abuse. 6. Hypocalcemia. Corrected calcium 04/06/2024 is 9.7. Vitamin D deficiency noted - vitamin D 16.6 04/03/2024. Maintained on supplementation. 7. Cardiomyopathy with EF of about 40%, status postcardiac cath on 04/11/2024 and for angioplasty of LAD Plan: DC IV fluids Continue vitamin D supplementation. Continue antihypertensive medications. Continue to monitor renal function. Repeat labs in the morning.
[2024-04-14 20:40] LABS: Glucose,Whole Blood 367 mg/dL (70-110)
[2024-04-15 05:23] VITALS: RESP 18
[2024-04-15 06:15] LABS: Glucose,Whole Blood 179 mg/dL (70-110)
[2024-04-15 08:10] LABS: African American GFR (CKD) 37 (>60 ml/min/1.73 sqM); Anion Gap 5 mmol/L; Blood Urea Nitrogen 34 mg/dL (9-20); Calcium 9.1 mg/dL (8.4-10.2); Carbon Dioxide 20 mmol/L (22-30); Chloride 114 mmol/L (98-107); Glucose 96 mg/dL (74-99); Magnesium 1.5 mg/dL (1.6-2.3); Non-African American GFR(CKD) 32 (>60 ml/min/1.73 sqM); Potassium 4.4 mmol/L (3.5-5.1); Sodium 139 mmol/L (137-145)
[2024-04-15 08:11] LABS: Anisocytosis Slight; Basophils # (A) 0.1 k/uL (0-0.2); Basophils % (A) 0 %; Eosinophils # (A) 0.1 k/uL (0-0.7); Eosinophils % (A) 0 %; HCT 25.4 % (39.0-53.0); HGB 7.7 gm/dL (13.0-17.5); Hypochromasia Marked; Lymphocytes # (A) 1.2 k/uL (1.0-4.8); Lymphocytes % (A) 9 %; MCH 30.4 pg (25.0-35.0); MCHC 30.2 g/dL (31.0-37.0); MCV 100.7 fL (80.0-100.0); Macrocytosis Slight; Mean Platelet Volume 7.7; Monocytes # (A) 0.9 k/uL (0-1.0); Monocytes % (A) 6 %; Neutrophils # (A) 11.7 k/uL (1.3-7.7); Neutrophils % (A) 83 %; Platelet Count 854 k/uL (150-450); RBC 2.52 m/uL (4.30-5.90); RDW 16.9 % (11.5-15.5)
[2024-04-15 11:44] LABS: Glucose,Whole Blood 96 mg/dL (70-110)
[2024-04-15] MEDS: MAGNESIUM SULFATE-D5W PMX 1 GM in DEXTROSE/WATER 1 100ML.BAG IVPB SCH (12:39)
--- NOTE | 2024-04-15 12:46 | P.PN ---
Subjective Patient is being seen for follow-up for acute kidney injury and metabolic acidosis. status post cardiac catheterization on 04/13/2024 with angioplasty of LAD Serum creatinine 2.1 today. This may be his baseline renal function. Patient is maintained on IV fluids. Status postcardiac catheterization on 04/11/2024 and on 04/13/2024. No complaints of shortness of breath. Objective - Vital Signs Vital signs: Vital Signs Temp 98 F 04/15/24 04:00 Pulse 72 04/15/24 11:59 Resp 18 04/15/24 11:59 BP 155/80 04/15/24 11:59 Pulse Ox 100 04/15/24 11:59 FiO2 Intake & Output 04/14/24 04/15/24 04/15/24 18:59 06:59 18:59 Intake Total 780 240 Output Total 725 700 550 Balance 55 -700 -310 Weight 75 kg 70.6 kg Intake: Oral 780 240 Output: Urine 725 700 550 Other: Voiding Method Bedside Commode Bedside Commode Bedside Commode Urinal Urinal Urinal - Exam Vital signs are stable. General: No acute distress. HEENT: Head exam is unremarkable. Lungs: Bilateral breath sounds present; no rhonchi, wheezes, or rales. Heart: Rate and rhythm are regular. Abdomen: Nontender. Extremities: trace edema - Labs CBC & Chem 7: 04/15/24 07:42 04/15/24 07:42 Labs: Abnormal Lab Results - Last 24 Hours (Table) 04/14/24 04/14/24 04/14/24 Range/Units 16:27 16:28 20:38 WBC (3.8-10.6) k/uL RBC 2.38 L (4.30-5.90) m/uL Hgb 7.2 L (13.0-17.5) gm/dL Hct 23.9 L (39.0-53.0) % MCV 100.5 H (80.0-100.0) fL MCHC 29.9 L (31.0-37.0) g/dL RDW 16.9 H (11.5-15.5) % Plt Count 836 H (150-450) k/uL Neutrophils # 8.1 H (1.3-7.7) k/uL Chloride (98-107) mmol/L Carbon Dioxide (22-30) mmol/L BUN (9-20) mg/dL Creatinine (0.66-1.25) mg/dL POC Glucose (mg/dL) 111 H 367 H (70-110) mg/dL Magnesium (1.6-2.3) mg/dL 04/15/24 04/15/24 04/15/24 Range/Units 06:13 07:42 07:42 WBC 14.0 H (3.8-10.6) k/uL RBC 2.52 L (4.30-5.90) m/uL Hgb 7.7 L (13.0-17.5) gm/dL Hct 25.4 L (39.0-53.0) % MCV 100.7 H (80.0-100.0) fL MCHC 30.2 L (31.0-37.0) g/dL RDW 16.9 H (11.5-15.5) % Plt Count 854 H (150-450) k/uL Neutrophils # 11.7 H (1.3-7.7) k/uL Chloride 114 H (98-107) mmol/L Carbon Dioxide 20 L (22-30) mmol/L BUN 34 H (9-20) mg/dL Creatinine 2.15 H (0.66-1.25) mg/dL POC Glucose (mg/dL) 179 H (70-110) mg/dL Magnesium 1.5 L (1.6-2.3) mg/dL Assessment and Plan Assessment: 1. Acute kidney injury. Secondary to volume depletion and NSAIDs. No hydronephrosis seen on ultrasound 04/03/2024. Renal function has improved since admission however serum creatinine seems to to be staying around 1.9-2 mg/dL now. Maintained on normal saline. No urinary retention. 2. Metabolic acidosis. Anion gap secondary to alcohol, acute kidney injury. Improved. 3. Hypovolemic hyponatremia. Improved. 4. Hyperkalemia. Secondary to acute kidney injury and metabolic acidosis. Improved. 5. EtOH abuse. 6. Hypocalcemia. Corrected calcium 04/06/2024 is 9.7. Vitamin D deficiency noted - vitamin D 16.6 04/03/2024. Maintained on supplementation. 7. Cardiomyopathy with EF of about 40%, status postcardiac cath on 04/11/2024 and for angioplasty of LAD Plan: DC IV fluids Continue vitamin D supplementation. Continue antihypertensive medications. Continue to monitor renal function. Repeat labs in the morning.
[2024-04-15 16:45] LABS: Glucose,Whole Blood 115 mg/dL (70-110)
[2024-04-15 19:59] LABS: Glucose,Whole Blood 160 mg/dL (70-110)
[2024-04-16 02:25] VITALS: TEMP 98.4
[2024-04-16 05:28] VITALS: BP 133/70; PULSE 76
[2024-04-16 06:20] LABS: Glucose,Whole Blood 103 mg/dL (70-110)
[2024-04-16 07:30] LABS: % Iron Saturation 5.71 (15.00-50.00)
[2024-04-16] MEDS ORDERED: MAGNESIUM OXIDE 400 MG TAB ONE ×3 (10:00→21:08)
[2024-04-16] MEDS ORDERED: SODIUM BICARBONATE TAB 650 MG TAB ONE ×2 (10:00→21:07)
[2024-04-16] MEDS ORDERED: SPIRONOLACTONE 25 MG TAB ONE (10:00)
[2024-04-16] MEDS ORDERED: ASPIRIN 81 MG ONE (10:01)
[2024-04-16] MEDS ORDERED: PANTOPRAZOLE 40 MG TABLET PO ONE (10:01)
[2024-04-16] MEDS ORDERED: amLODIPine 5 MG TAB ONE (10:01)
[2024-04-16] MEDS ORDERED: DAPAGLIFLOZIN PROPANEDIOL 10 MG TABLET ONE (10:01)
[2024-04-16] MEDS ORDERED: FERROUS SULFATE 325 MG TAB PO ONE (10:01)
[2024-04-16] MEDS ORDERED: AMIODARONE 200 MG TAB ONE ×2 (10:01→21:08)
[2024-04-16 11:15] LABS: Glucose,Whole Blood 144 mg/dL (70-110)
[2024-04-16] MEDS ORDERED: carvediloL 12.5 MG TAB ONE (16:12)
[2024-04-16 16:16] LABS: Glucose,Whole Blood 115 mg/dL (70-110)
[2024-04-16] MEDS ORDERED: INSULIN ASPART (NovoLOG) 100 UNIT/ML VIAL SQ ONE (16:43)
[2024-04-16] MEDS ORDERED: SODIUM POLYSTYRENE SULFONATE 15 GM/60 ML BOTTLE ONE ×2 (16:51)
[2024-04-16] MEDS ORDERED: IPRATROPIUM-ALBUTEROL 3 ML NEB ONE (19:39)
[2024-04-16 20:25] LABS: Glucose,Whole Blood 144 mg/dL (70-110)
[2024-04-16] MEDS ORDERED: ATORVASTATIN 40 MG TAB ONE (21:08)
[2024-04-16] MEDS ORDERED: ERGOCALCIFEROL 1,250 MCG (50,000 IU) CAPSULE ONE (23:59)
[2024-04-17] MEDS ORDERED: ACETAMINOPHEN TAB 325 MG TAB ONE ×2 (05:37→20:17)
[2024-04-17 06:21] LABS: Glucose,Whole Blood 122 mg/dL (70-110)
[2024-04-17] MEDS ORDERED: SPIRONOLACTONE 25 MG TAB ONE (07:57)
[2024-04-17] MEDS ORDERED: SODIUM BICARBONATE TAB 650 MG TAB ONE ×2 (07:57→20:16)
[2024-04-17] MEDS ORDERED: AMIODARONE 200 MG TAB ONE ×2 (07:58→20:16)
[2024-04-17] MEDS ORDERED: MAGNESIUM OXIDE 400 MG TAB ONE ×3 (07:58→20:16)
[2024-04-17] MEDS ORDERED: PANTOPRAZOLE 40 MG TABLET PO ONE (07:58)
[2024-04-17] MEDS ORDERED: ASPIRIN 81 MG ONE (07:58)
[2024-04-17] MEDS ORDERED: DAPAGLIFLOZIN PROPANEDIOL 10 MG TABLET ONE (07:58)
[2024-04-17] MEDS ORDERED: amLODIPine 5 MG TAB ONE (07:59)
[2024-04-17] MEDS ORDERED: FERROUS SULFATE 325 MG TAB PO ONE (07:59)
[2024-04-17] MEDS ORDERED: carvediloL 12.5 MG TAB ONE ×2 (07:59→14:57)
[2024-04-17] MEDS ORDERED: IPRATROPIUM-ALBUTEROL 3 ML NEB ONE ×2 (08:00→20:25)
[2024-04-17 11:29] LABS: Glucose,Whole Blood 109 mg/dL (70-110)
[2024-04-17] MEDS ORDERED: INSULIN ASPART (NovoLOG) 100 UNIT/ML VIAL SQ ONE (12:27)
[2024-04-17 16:37] LABS: Glucose,Whole Blood 109 mg/dL (70-110)
[2024-04-17] MEDS ORDERED: ATORVASTATIN 40 MG TAB ONE (20:17)
[2024-04-17] MEDS ORDERED: ALPRAZolam 0.25 MG TAB ONE (20:27)
[2024-04-17 20:31] LABS: Glucose,Whole Blood 143 mg/dL (70-110)
[2024-04-18] MEDS ORDERED: ACETAMINOPHEN TAB 325 MG TAB ONE ×2 (03:06→21:30)
[2024-04-18 05:54] LABS: Glucose,Whole Blood 111 mg/dL (70-110)
[2024-04-18] MEDS ORDERED: SPIRONOLACTONE 25 MG TAB ONE (08:18)
[2024-04-18] MEDS ORDERED: SODIUM BICARBONATE TAB 650 MG TAB ONE ×2 (08:18→21:30)
[2024-04-18] MEDS ORDERED: DAPAGLIFLOZIN PROPANEDIOL 10 MG TABLET ONE (08:19)
[2024-04-18] MEDS ORDERED: AMIODARONE 200 MG TAB ONE ×2 (08:19→21:30)
[2024-04-18] MEDS ORDERED: MAGNESIUM OXIDE 400 MG TAB ONE ×3 (08:19→21:30)
[2024-04-18] MEDS ORDERED: PANTOPRAZOLE 40 MG TABLET PO ONE (08:19)
[2024-04-18] MEDS ORDERED: ASPIRIN 81 MG ONE (08:19)
[2024-04-18] MEDS ORDERED: amLODIPine 5 MG TAB ONE (08:20)
[2024-04-18] MEDS ORDERED: FERROUS SULFATE 325 MG TAB PO ONE (08:20)
[2024-04-18] MEDS ORDERED: carvediloL 12.5 MG TAB ONE ×2 (08:20→16:25)
[2024-04-18 11:55] LABS: Glucose,Whole Blood 107 mg/dL (70-110)
[2024-04-18] MEDS ORDERED: SODIUM POLYSTYRENE SULFONATE 15 GM/60 ML BOTTLE ONE ×2 (12:19)
[2024-04-18 16:55] LABS: Glucose,Whole Blood 123 mg/dL (70-110)
[2024-04-18 20:07] LABS: Glucose,Whole Blood 107 mg/dL (70-110)
[2024-04-18] MEDS ORDERED: IPRATROPIUM-ALBUTEROL 3 ML NEB ONE (20:26)
[2024-04-18] MEDS ORDERED: ATORVASTATIN 40 MG TAB ONE (21:31)
[2024-04-18] MEDS ORDERED: ALPRAZolam 0.5 MG TAB ONE (21:35)
[2024-04-18] MEDS ORDERED: DARBEPOETIN ALFA 40 MCG/0.4 ML SYRINGE ONE (23:59)
[2024-04-19 06:22] LABS: Glucose,Whole Blood 99 mg/dL (70-110)
[2024-04-19] MEDS ORDERED: IPRATROPIUM-ALBUTEROL 3 ML NEB ONE (07:55)
[2024-04-19] MEDS ORDERED: SODIUM BICARBONATE TAB 650 MG TAB ONE (08:37)
[2024-04-19] MEDS ORDERED: AMIODARONE 200 MG TAB ONE (08:37)
[2024-04-19] MEDS ORDERED: SPIRONOLACTONE 25 MG TAB ONE (08:37)
[2024-04-19] MEDS ORDERED: MAGNESIUM OXIDE 400 MG TAB ONE (08:37)
[2024-04-19] MEDS ORDERED: amLODIPine 5 MG TAB ONE (08:38)
[2024-04-19] MEDS ORDERED: DAPAGLIFLOZIN PROPANEDIOL 10 MG TABLET ONE (08:38)
[2024-04-19] MEDS ORDERED: PANTOPRAZOLE 40 MG TABLET PO ONE (08:38)
[2024-04-19] MEDS ORDERED: ASPIRIN 81 MG ONE (08:38)
[2024-04-19] MEDS ORDERED: ACETAMINOPHEN TAB 325 MG TAB ONE (08:38)
[2024-04-19] MEDS ORDERED: carvediloL 12.5 MG TAB ONE (08:38)
[2024-04-19] MEDS ORDERED: FERROUS SULFATE 325 MG TAB PO ONE (08:38)
[2024-04-19 11:34] LABS: Glucose,Whole Blood 112 mg/dL (70-110)
[2024-05-09 11:47] LABS: Glucose 116 mg/dL (74-99); Potassium 5.3 mmol/L (3.5-5.1); Sodium 137 mmol/L (137-145)
[2024-05-09 11:48] LABS: African American GFR (CKD) 33 (>60 ml/min/1.73 sqM); Anion Gap 10 mmol/L; Blood Urea Nitrogen 34 mg/dL (9-20); Calcium 9.3 mg/dL (8.4-10.2); Carbon Dioxide 16 mmol/L (22-30); Chloride 111 mmol/L (98-107); Non-African American GFR(CKD) 28 (>60 ml/min/1.73 sqM)
== END 2024-04-19 14:45 | disposition home or self-care (01) | DRG 469 ==
LOC: EC 07:07 → 3SCARD 10:38
PROVIDERS: ADMIT Hospitalist; ATTEND Hospitalist
PROC: B2111ZZ Fluoroscopy of Multiple Coronary Arteries using Low Osmolar Contrast (ICD-10-PCS; 2024-04-11)
PROC: 4A023N7 Measurement of Cardiac Sampling and Pressure, Left Heart, Percutaneous Approach (ICD-10-PCS; principal; 2024-04-11 14:35)
PROC: 4A033BC Measurement of Arterial Pressure, Coronary, Percutaneous Approach (ICD-10-PCS; 2024-04-13)
DX: N17.9 Acute kidney failure, unspecified (principal); I21.4 Non-ST elevation (NSTEMI) myocardial infarction; I13.0 Hypertensive heart and chronic kidney disease with heart failure and stage 1 through stage 4 chronic kidney disease, or unspecified chronic kidney disease; I42.6 Alcoholic cardiomyopathy; I47.20 Ventricular tachycardia, unspecified; E11.65 Type 2 diabetes mellitus with hyperglycemia; E11.22 Type 2 diabetes mellitus with diabetic chronic kidney disease; K70.10 Alcoholic hepatitis without ascites; I50.22 Chronic systolic (congestive) heart failure; N18.32 Chronic kidney disease, stage 3b; F10.20 Alcohol dependence, uncomplicated; I70.0 Atherosclerosis of aorta; J44.9 Chronic obstructive pulmonary disease, unspecified; E87.20 Acidosis, unspecified; E87.1 Hypo-osmolality and hyponatremia; I47.19 Other supraventricular tachycardia; D69.59 Other secondary thrombocytopenia; T39.395A Adverse effect of other nonsteroidal anti-inflammatory drugs [NSAID], initial encounter; E86.1 Hypovolemia; E78.5 Hyperlipidemia, unspecified; E87.5 Hyperkalemia; F17.210 Nicotine dependence, cigarettes, uncomplicated; I25.10 Atherosclerotic heart disease of native coronary artery without angina pectoris; E55.9 Vitamin D deficiency, unspecified; K21.9 Gastro-esophageal reflux disease without esophagitis; M19.072 Primary osteoarthritis, left ankle and foot; N14.0 Analgesic nephropathy; Y90.4 Blood alcohol level of 80-99 mg/100 ml; R19.5 Other fecal abnormalities; R19.7 Diarrhea, unspecified; Z79.84 Long term (current) use of oral hypoglycemic drugs; Z79.899 Other long term (current) drug therapy
CPT/HCPCS: 36415; 51798; 71045; 76770; 80048; 80053; 80179; 80306; 80320; 81001; 82009; 82272; 82306; 82550; 82607; 82728; 82746; 83036; 83540; 83550; 83605; 83735; 83930; 84100; 84443; 84484; 84600; 85025; 85027; 85610; 85730; 93005; 93306; 93454; 93458; 93799; 94640; 94760; 96361; 96365; 96366; 96375; 96376; 99291; 99292